=== PATIENT | male | born 1945 | race Caucasian/White ===

== ENCOUNTER 2019-05-28 08:58 | Outpatient (RCR) | payer MEDICARE, SELFPAY ==
[2019-04-12 09:22] LABS: Prothrombin Time 21.1 Seconds (9.64-11.0)
[2019-05-03 10:07] LABS: INR 3.6; Prothrombin Time 38.1 Seconds (9.64-11.0)
[2019-05-07 10:06] LABS: INR 2.6; Prothrombin Time 27.6 Seconds (9.64-11.0)
[2019-05-14 10:02] LABS: INR 2.5; Prothrombin Time 26.1 Seconds (9.64-11.0)
[2019-05-28 09:29] LABS: INR 2.3
== END 2019-07-11 23:59 | disposition home or self-care (01) ==
LOC: CHSLAB 08:58
PROVIDERS: PCP Internal Medicine; Visit Provider Specialist
DX: I48.91 Unspecified atrial fibrillation (principal); Z79.83 Long term (current) use of bisphosphonates
CPT/HCPCS: 36415; 85610

== ENCOUNTER 2019-06-22 09:04 | Outpatient (CLI) | payer MEDICARE, SELFPAY ==
[2019-06-22 09:17] LABS: Hematocrit 35.7 % (37.0-46.0); Hemoglobin 12.1 g/dL (12.4-15.3); Mean Corpuscular HGB Conc 33.9 g/dL (32.0-36.0); Mean Corpuscular Hemoglobin 31.8 pg (27.0-31.0); Mean Corpuscular Volume 93.9 fL (78.0-102.0); Mean Platelet Volume 10.1 fl (8.7-11.0); Platelet Count Result 223 K/mm3 (150-420); Red Cell Distribution Width 13.4 % (11.6-14.4); White Blood Count 5.5 K/mm3 (4.8-10.8)
[2019-06-22] MEDS: CYANOCOBALAMIN INJ 1,000 MCG/ML VIAL 1000 MCG IM (09:23)
[2019-06-22 09:28] LABS: INR 2.1
[2019-06-22 09:50] LABS: BNP 437 pg/mL (0-100)
[2019-06-22 10:08] LABS: Alanine Aminotransferase 24 U/L (16-63); Albumin Level 3.9 g/dL (3.4-5.0); Alkaline Phosphatase 75 U/L (46-116); Anion Gap 13.2 mmol/L (7-16); Aspartate Amino Transferase 25 U/L (15-37); Bilirubin,Total 0.5 mg/dL (0.00-1.00); Blood Urea Nitrogen 25 mg/dL (7-18); Calcium 9.4 mg/dL (8.5-10.1); Carbon Dioxide 27 mmol/L (21-32); Chloride 102 mmol/L (98-108); Cholesterol 154 mg/dL (0-200); Estimated Glomerular Filt Rate > 60; Glucose 102 mg/dL (70-99); HDL Direct 75 mg/dL (40-60); LDL Cholesterol Calculated 70 mg/dL (<130); Osmolality Calculated 288 mOsm/kg (285-295); Potassium 5.2 mmol/L (3.5-5.1); Sodium 137 mmol/L (136-145); Total Protein 7.8 g/dL (6.4-8.2); Triglycerides 45 mg/dL (0-150); Uric Acid 6.4 mg/dL (3.5-7.2)
[2019-06-22 10:37] LABS: Band Neutrophils Percent 0 % (0-6); Basophils Absolute Manual 0.05 K/mm3 (0-0.1); Basophils Percent Manual 1 % (0-1); Eosinophils Absolute Manual 0.49 K/mm3 (0.02-0.5); Eosinophils Percent Manual 9 % (1-6); Lymphocytes Absolute Manual 1.65 K/mm3 (1.1-4.5); Lymphocytes Percent Manual 30 % (18-44); Monocytes Absolute Manual 0.66 K/mm3 (0.1-0.90); Monocytes Percent Manual 12 % (3-9); Neutrophils Absolute Manual 2.64 K/mm3 (1.3-6.7); Neutrophils Percent Manual 48 % (46-73); Platelet Estimate Adequate (Adequate); Total Cells Counted 100
== END 2019-06-22 09:05 | disposition home or self-care (01) ==
PROVIDERS: PCP Specialist; Visit Provider Internal Medicine
DX: I48.91 Unspecified atrial fibrillation (principal); E53.8 Deficiency of other specified B group vitamins; I50.9 Heart failure, unspecified; I11.0 Hypertensive heart disease with heart failure; Z79.01 Long term (current) use of anticoagulants; E78.5 Hyperlipidemia, unspecified; M10.9 Gout, unspecified
CPT/HCPCS: 36415; 80053; 80061; 83880; 84550; 85025; 85610; 96372; J3420

== ENCOUNTER 2019-07-20 09:43 | Outpatient (CLI) | payer MEDICARE, SELFPAY ==
[2019-07-20 10:13] LABS: INR 2.4; Prothrombin Time 24.5 Seconds (9.64-11.0)
[2019-07-20] MEDS: CYANOCOBALAMIN INJ 1,000 MCG/ML VIAL 1000 MCG IM (10:16)
--- NOTE | 2019-07-20 10:18 | PC.NURSE ---
PATIENT HERE FOR MONTHLY B12 INJECTION. B12 INJECTION ADMINISTERED. TOLERATED WELL. NO CONCERNS. SAFE EXIT OF HOSPITAL.
== END 2019-07-20 09:44 | disposition home or self-care (01) ==
PROVIDERS: PCP Internal Medicine; Visit Provider Specialist
DX: E53.8 Deficiency of other specified B group vitamins (principal); I48.0 Paroxysmal atrial fibrillation
CPT/HCPCS: 36415; 85610; 96372; J3420

== ENCOUNTER 2019-08-21 09:42 | Outpatient (CLI) | payer MEDICARE, SELFPAY ==
[2019-08-21 10:06] LABS: INR 1.9
[2019-08-21] MEDS: CYANOCOBALAMIN INJ 1,000 MCG/ML VIAL 1000 MCG IM (10:41)
== END 2019-08-21 09:43 | disposition home or self-care (01) ==
LOC: CHSTREATRM 09:44
PROVIDERS: PCP Internal Medicine; Visit Provider Specialist
DX: I48.0 Paroxysmal atrial fibrillation (principal); E53.8 Deficiency of other specified B group vitamins
CPT/HCPCS: 36415; 85610; 96372; J3420

== ENCOUNTER 2019-09-28 10:32 | Outpatient (CLI) | payer MEDICARE, SELFPAY ==
[2019-09-28] MEDS: CYANOCOBALAMIN INJ 1,000 MCG/ML VIAL 1000 MCG IM (10:51)
[2019-09-28 10:53] LABS: INR 2.3; Prothrombin Time 22.8 Seconds (9.64-11.0)
--- NOTE | 2019-09-28 10:59 | PC.NURSE ---
PT EXITED THE HOSPITAL PER WC WITH VOLUNTEER.
== END 2019-09-28 10:33 | disposition home or self-care (01) ==
PROVIDERS: PCP Internal Medicine; Visit Provider Specialist
DX: I48.0 Paroxysmal atrial fibrillation (principal); E53.8 Deficiency of other specified B group vitamins
CPT/HCPCS: 36415; 85610; 96372; J3420

== ENCOUNTER 2019-10-26 09:16 | Outpatient (CLI) | payer MEDICARE, SELFPAY ==
[2019-10-26] MEDS: CYANOCOBALAMIN INJ 1,000 MCG/ML VIAL 1000 MCG IM (09:32)
[2019-10-26 09:39] LABS: INR 2.1; Prothrombin Time 20.7 Seconds (9.64-11.0)
== END 2019-10-26 09:17 | disposition home or self-care (01) ==
PROVIDERS: PCP Internal Medicine; Visit Provider Specialist
DX: E53.8 Deficiency of other specified B group vitamins (principal); I48.0 Paroxysmal atrial fibrillation
CPT/HCPCS: 36415; 85610; 96372; J3420

== ENCOUNTER 2019-11-26 09:06 | Outpatient (CLI) | payer MEDICARE, SELFPAY ==
[2019-11-26] MEDS: CYANOCOBALAMIN INJ 1,000 MCG/ML VIAL 1000 MCG IM (09:25)
[2019-11-26 09:41] LABS: INR 2.5; Prothrombin Time 25.2 Seconds (9.64-11.0)
== END 2019-11-26 09:07 | disposition home or self-care (01) ==
PROVIDERS: PCP Internal Medicine; Visit Provider Specialist
DX: E53.8 Deficiency of other specified B group vitamins (principal); I48.0 Paroxysmal atrial fibrillation
CPT/HCPCS: 36415; 85610; 96372; J3420

== ENCOUNTER 2019-12-31 09:32 | Outpatient (CLI) | payer MEDICARE, SELFPAY ==
[2019-12-31] MEDS: CYANOCOBALAMIN INJ 1,000 MCG/ML VIAL 1000 MCG IM (09:53)
[2019-12-31 09:56] LABS: INR 1.8; Prothrombin Time 18.3 Seconds (9.64-11.0)
== END 2019-12-31 09:33 | disposition home or self-care (01) ==
LOC: CHSTREATRM 09:35
PROVIDERS: PCP Internal Medicine; Visit Provider Specialist
DX: E53.8 Deficiency of other specified B group vitamins (principal); I48.0 Paroxysmal atrial fibrillation
CPT/HCPCS: 36415; 85610; 96372; J3420

== ENCOUNTER 2020-01-22 10:14 | Outpatient (CLI) | payer MEDICARE, SELFPAY ==
[2020-01-22 10:33] LABS: Basophils Absolute Auto 0.05 K/mm3 (0.00-0.10); Basophils Percent Auto 0.6 % (0.0-1.0); Eosinophils Percent Auto 9.7 % (1.0-6.0); Hematocrit 35.5 % (37.0-46.0); Hemoglobin 11.7 g/dL (12.4-15.3); Immature Granulocyte Absolute 0.04 K/mm3 (0.00-0.00); Immature Granulocyte Percent A 0.5 % (0.0-0.0); Lymphocytes Absolute Auto 1.19 K/mm3 (1.10-4.50); Lymphocytes Percent Auto 14.5 % (18.0-42.0); Mean Corpuscular Hemoglobin 31.7 pg (27.0-31.0); Mean Corpuscular Volume 96.2 fL (78.0-102.0); Monocytes Absolute Auto 0.81 K/mm3 (0.10-0.90); Monocytes Percent Auto 9.9 % (2.0-11.0); Neutrophils Absolute Auto 5.3 K/mm3 (1.7-7.2); Neutrophils Percent Auto 64.8 % (50.0-70.0); Platelet Count Result 233 K/mm3 (150-420); Red Blood Count 3.69 M/mm3 (4.70-6.10); Red Cell Distribution Width 13.2 % (11.6-14.4); White Blood Count 8.2 K/mm3 (4.8-10.8)
[2020-01-22 10:36] LABS: Add Urine Microscopic? NO; Appearance Urine Clear (Clear); Bilirubin Urine Negative (Negative); Blood Urine Negative (Negative); Color Urine Yellow (Yellow); Glucose Urine UA Negative (Negative); Ketones Urine Negative (Negative); Leukocyte Esterase Ur Negative (Negative); Nitrate Urine Negative (Negative); Protein Urine Negative (Negative); Urobilinogen Urine 0.2 mg/dL (0.2-1.0); pH Urine 6.5 (5.0-8.0)
[2020-01-22 10:46] LABS: Hemoglobin A1C 4.9 % (<5.7)
[2020-01-22 11:22] LABS: Alanine Aminotransferase 30 U/L (16-63); Albumin Level 3.8 g/dL (3.4-5.0); Alkaline Phosphatase 90 U/L (46-116); Anion Gap 7 mmol/L (8-16); Aspartate Amino Transferase 23 U/L (15-37); Bilirubin,Total 0.4 mg/dL (0.00-1.00); Blood Urea Nitrogen 23 mg/dL (7-18); Calcium 9.4 mg/dL (8.5-10.1); Carbon Dioxide 28 mmol/L (21-32); Chloride 99 mmol/L (98-108); Cholesterol 154 mg/dL (0-200); Estimated Glomerular Filt Rate > 60; Glucose 105 mg/dL (70-99); HDL Direct 75 mg/dL (40-60); LDL Cholesterol Calculated 62 mg/dL (<130); Osmolality Calculated 281 mOsm/kg (285-295); Potassium 4.7 mmol/L (3.5-5.1); Prostate Specific Antigen 0.8 ng/mL (< OR = 4.0); Sodium 134 mmol/L (136-145); Total Protein 7.3 g/dL (6.4-8.2); Triglycerides 87 mg/dL (0-150)
== END 2020-01-22 10:15 | disposition home or self-care (01) ==
LOC: CHSLAB 10:17
PROVIDERS: PCP Internal Medicine; Visit Provider Internal Medicine
DX: I50.9 Heart failure, unspecified (principal); E11.9 Type 2 diabetes mellitus without complications; R10.9 Unspecified abdominal pain; Z12.5 Encounter for screening for malignant neoplasm of prostate; Z00.00 Encounter for general adult medical examination without abnormal findings
CPT/HCPCS: 36415; 80053; 80061; 81003; 83036; 84153; 85025; G0103

== ENCOUNTER 2020-01-23 08:07 | Outpatient (CLI) | payer MEDICARE, SELFPAY ==
--- NOTE | ~2020-01-23 | US_ITS ---
EXAMINATION: US right upper quadrant EXAM DATE: 01/23/2020 09:12 INDICATION: Abdominal pain. TECHNIQUE: Multiple grayscale and Doppler images of the abdomen right upper quadrant were obtained (rodolfo y a technologist who performed the scan) and subsequently reviewed. There is no prior study for joseline fernández. FINDINGS: Exam limited from patient's body habitus. The pancreatic head and body are unremarkable in appearance. The pancreatic tail is not visualized. Poor acoustic window for evaluating liver but no gross abnormality. There is no evidence of intrah epatic biliary duct dilation. Portal venous flow was seen in the hepatopedal, normal direction and h as normal Doppler waveform. No right-sided hydronephrosis. Common bile duct measures 6 mm, which is normal. There is cholelithiasis. Gallbladder wall was measur ed at 4 mm which is considered mildly thickened, which is nonspecific given absence of sonographic Mu rphy's sign. IMPRESSION: Cholelithiasis. Mild nonspecific gallbladder wall thickening. No pericholecystic fluid, b iliary dilation or sonographic Trivedi's sign demonstrated. Reviewed, dictated and finalized at location B. IMPRESSION: Cholelithiasis. Mild nonspecific gallbladder wall thickening. No pe richolecystic fluid, biliary dilation or sonographic Trivedi's sign demonstrated .
--- NOTE | ~2020-01-23 | US_ITS ---
EXAMINATION: US aorta EXAM DATE: 01/23/2020 09:12 INDICATION: Abdominal pain. Hypertension. Myocardial infarction, high cholesterol. TECHNIQUE: Multiple grayscale and Doppler images of the aorta were obtained (by a technologist who pe rformed the scan) and subsequently reviewed. There is no prior study for comparison. FINDINGS: Mild aortic atherosclerosis without aneurysm or evidence of dissection flap. Aorta measurements by te chnologist are of the lumen, not including the wall, but are within normal size limits. IMPRESSION: 1. Mild aortic atherosclerosis. Reviewed, dictated and finalized at location B.
== END 2020-01-23 08:08 | disposition home or self-care (01) ==
LOC: CHSIMG 08:09
PROVIDERS: PCP Internal Medicine; Visit Provider Internal Medicine
DX: R10.9 Unspecified abdominal pain (principal); I50.9 Heart failure, unspecified; E11.9 Type 2 diabetes mellitus without complications
CPT/HCPCS: 76705; 76775

== ENCOUNTER 2020-01-28 09:29 | Outpatient (CLI) | payer MEDICARE, SELFPAY ==
[2020-01-28 09:54] LABS: INR 2.1; Prothrombin Time 21.5 Seconds (9.64-11.0)
[2020-01-28] MEDS: CYANOCOBALAMIN INJ 1,000 MCG/ML VIAL 1000 MCG IM (09:58)
== END 2020-01-28 09:30 | disposition home or self-care (01) ==
PROVIDERS: PCP Internal Medicine; Visit Provider Specialist
DX: E53.8 Deficiency of other specified B group vitamins (principal); I48.0 Paroxysmal atrial fibrillation
CPT/HCPCS: 36415; 85610; 96372; J3420

== ENCOUNTER 2020-02-25 09:30 | Outpatient (CLI) | payer MEDICARE, SELFPAY ==
[2020-02-25] MEDS: CYANOCOBALAMIN INJ 1,000 MCG/ML VIAL 1000 MCG IM (09:44)
[2020-02-25 10:00] LABS: INR 2.9; Prothrombin Time 28.8 Seconds (9.64-11.0)
== END 2020-02-25 09:31 | disposition home or self-care (01) ==
LOC: CHSTREATRM 09:32
PROVIDERS: PCP Internal Medicine; Visit Provider Specialist
DX: E53.8 Deficiency of other specified B group vitamins (principal); I48.0 Paroxysmal atrial fibrillation
CPT/HCPCS: 36415; 85610; 96372; J3420

== ENCOUNTER 2020-03-24 10:15 | Outpatient (CLI) | payer MEDICARE, SELFPAY ==
[2020-03-24 10:43] LABS: INR 3.2; Prothrombin Time 31.7 Seconds (9.64-11.0)
[2020-03-24] MEDS: CYANOCOBALAMIN INJ 1,000 MCG/ML VIAL 1000 MCG IM (10:47)
== END 2020-03-24 10:16 | disposition home or self-care (01) ==
PROVIDERS: PCP Internal Medicine; Visit Provider Specialist
DX: E53.8 Deficiency of other specified B group vitamins (principal); I48.0 Paroxysmal atrial fibrillation
CPT/HCPCS: 36415; 85610; 96372; J3420

== ENCOUNTER 2020-04-22 10:18 | Outpatient (CLI) | payer MEDICARE, SELFPAY ==
[2020-04-22] MEDS: CYANOCOBALAMIN INJ 1,000 MCG/ML VIAL 1000 MCG IM (10:41)
== END 2020-04-22 10:19 | disposition home or self-care (01) ==
LOC: CHSTREATRM 10:19
PROVIDERS: PCP Internal Medicine; Visit Provider Internal Medicine
DX: E53.8 Deficiency of other specified B group vitamins (principal)
CPT/HCPCS: 96372; J3420

== ENCOUNTER 2020-05-27 09:51 | Outpatient (CLI) | payer MEDICARE, SELFPAY ==
[2020-05-27] MEDS: CYANOCOBALAMIN INJ 1,000 MCG/ML VIAL 1000 MCG IM (10:09)
== END 2020-05-27 09:52 | disposition home or self-care (01) ==
LOC: CHSTREATRM 09:54
PROVIDERS: PCP Internal Medicine; Visit Provider Internal Medicine
DX: E53.8 Deficiency of other specified B group vitamins (principal)
CPT/HCPCS: 96372; J3420

== ENCOUNTER 2020-06-09 09:56 | Outpatient (RCR) | payer MEDICARE, SELFPAY ==
[2020-03-31 08:39] LABS: INR 2.7; Prothrombin Time 28.4 Seconds (9.50-12.10)
[2020-04-14 10:38] LABS: INR 2.6; Prothrombin Time 27.4 Seconds (9.50-12.10)
[2020-05-12 11:50] LABS: INR 1.9; Prothrombin Time 20.4 Seconds (9.50-12.10)
[2020-06-09 10:24] LABS: INR 2.3; Prothrombin Time 23.3 Seconds (9.50-12.10)
== END 2020-06-29 23:59 | disposition home or self-care (01) ==
LOC: CHSLAB 09:56
PROVIDERS: PCP Internal Medicine; Visit Provider Specialist
DX: I48.0 Paroxysmal atrial fibrillation (principal); Z79.01 Long term (current) use of anticoagulants
CPT/HCPCS: 36415; 85610

== ENCOUNTER 2020-06-24 09:50 | Outpatient (CLI) | payer MEDICARE, SELFPAY ==
[2020-06-24] MEDS: CYANOCOBALAMIN INJ 1,000 MCG/ML VIAL 1000 MCG IM (10:05)
== END 2020-06-24 09:51 | disposition home or self-care (01) ==
LOC: CHSTREATRM 09:52
PROVIDERS: PCP Internal Medicine; Visit Provider Internal Medicine
DX: E53.8 Deficiency of other specified B group vitamins (principal)
CPT/HCPCS: 96372; J3420

== ENCOUNTER 2020-07-07 09:25 | Outpatient (RCR) | payer MEDICARE, SELFPAY ==
[2020-07-07 09:53] LABS: INR 1.8; Prothrombin Time 18.8 Seconds (9.50-12.10)
== END 2020-10-05 23:59 | disposition home or self-care (01) ==
LOC: CHSLAB 09:25
PROVIDERS: PCP Internal Medicine; Visit Provider Specialist
DX: Z79.01 Long term (current) use of anticoagulants (principal)
CPT/HCPCS: 36415; 85610

== ENCOUNTER 2020-07-24 09:38 | Outpatient (CLI) | payer MEDICARE, SELFPAY ==
--- NOTE | 2020-07-24 09:45 | PC.NURSE ---
here for OP IM, vitamin B12 given IM, tolerated well, discharge to home ambulatory
[2020-07-24] MEDS: CYANOCOBALAMIN INJ 1,000 MCG/ML VIAL 1000 MCG IM (10:08)
[2020-07-24 10:53] LABS: INR 2.4; Prothrombin Time 24.8 Seconds (9.50-12.10)
== END 2020-07-24 09:39 | disposition home or self-care (01) ==
LOC: CHSTREATRM 09:40
PROVIDERS: PCP Internal Medicine; Visit Provider Specialist
DX: E53.8 Deficiency of other specified B group vitamins (principal); Z79.01 Long term (current) use of anticoagulants
CPT/HCPCS: 36415; 85610; 96372; J3420

== ENCOUNTER 2020-08-26 09:22 | Outpatient (CLI) | payer MEDICARE, SELFPAY ==
[2020-08-26] MEDS: CYANOCOBALAMIN INJ 1,000 MCG/ML VIAL 1000 MCG IM (09:45)
[2020-08-26 09:49] VITALS: BP 128/77; PULSE 72; RESP 14; TEMP 36.7; O2SAT 97
[2020-08-26 09:52] LABS: INR 2.4; Prothrombin Time 24.5 Seconds (9.50-12.10)
== END 2020-08-26 09:23 | disposition home or self-care (01) ==
LOC: CHSLAB 09:25
PROVIDERS: PCP Internal Medicine; Visit Provider Specialist
DX: E53.8 Deficiency of other specified B group vitamins (principal); Z79.01 Long term (current) use of anticoagulants
CPT/HCPCS: 36415; 85610; 96372; J3420

== ENCOUNTER 2020-09-01 11:48 | Outpatient (CLI) | payer MEDICARE, SELFPAY ==
[2020-09-01 12:13] LABS: Basophils Absolute Auto 0.03 K/mm3 (0.00-0.10); Basophils Percent Auto 0.5 % (0.0-1.0); Eosinophils Absolute Auto 0.38 K/mm3 (0.02-0.50); Eosinophils Percent Auto 6.7 % (1.0-6.0); Hematocrit 32.4 % (37.0-46.0); Hemoglobin 11.2 g/dL (12.4-15.3); Immature Granulocyte Absolute 0.02 K/mm3 (0.00-0.00); Immature Granulocyte Percent A 0.4 % (0.0-0.0); Lymphocytes Absolute Auto 0.84 K/mm3 (1.10-4.50); Lymphocytes Percent Auto 14.8 % (18.0-42.0); Mean Corpuscular HGB Conc 34.6 g/dL (32.0-36.0); Mean Corpuscular Hemoglobin 32.5 pg (27.0-31.0); Mean Corpuscular Volume 93.9 fL (78.0-102.0); Mean Platelet Volume 9.8 fl (8.7-11.0); Monocytes Percent Auto 12.4 % (2.0-11.0); Neutrophils Absolute Auto 3.7 K/mm3 (1.7-7.2); Neutrophils Percent Auto 65.2 % (50.0-70.0); Platelet Count Result 213 K/mm3 (150-420); Red Blood Count 3.45 M/mm3 (4.70-6.10); Red Cell Distribution Width 13.1 % (11.6-14.4); White Blood Count 5.7 K/mm3 (4.8-10.8)
[2020-09-01 12:24] LABS: Hemoglobin A1C 5.1 % (<5.7)
[2020-09-01 13:40] LABS: Alanine Aminotransferase 24 U/L (16-63); Albumin Level 3.6 g/dL (3.4-5.0); Alkaline Phosphatase 76 U/L (46-116); Anion Gap 6 mmol/L (8-16); Aspartate Amino Transferase 21 U/L (15-37); Bilirubin,Total 0.6 mg/dL (0.00-1.00); Blood Urea Nitrogen 24 mg/dL (7-18); Carbon Dioxide 27 mmol/L (21-32); Chloride 91 mmol/L (98-108); Estimated Glomerular Filt Rate > 60; Glucose 86 mg/dL (70-99); Magnesium 1.7 mg/dL (1.8-2.4); NT Pro B Type Natriuretic Pept 2018 pg/mL (0-125); Osmolality Calculated 261 mOsm/kg (285-295); Potassium 5.2 mmol/L (3.5-5.1); Sodium 124 mmol/L (136-145); Uric Acid 5.6 mg/dL (3.5-7.2)
== END 2020-09-01 11:49 | disposition home or self-care (01) ==
LOC: CHSLAB 11:50
PROVIDERS: PCP Internal Medicine; Visit Provider Internal Medicine
DX: R06.00 Dyspnea, unspecified (principal); I50.9 Heart failure, unspecified; E11.9 Type 2 diabetes mellitus without complications; M10.9 Gout, unspecified
CPT/HCPCS: 36415; 80053; 83036; 83735; 83880; 84550; 85025

== ENCOUNTER 2020-09-11 12:36 | Outpatient (CLI) | payer MEDICARE, SELFPAY ==
[2020-09-11 13:29] LABS: Anion Gap 7 mmol/L (8-16); Blood Urea Nitrogen 19 mg/dL (7-18); Calcium 9.5 mg/dL (8.5-10.1); Carbon Dioxide 29 mmol/L (21-32); Chloride 91 mmol/L (98-108); Estimated Glomerular Filt Rate > 60; Glucose 91 mg/dL (70-99); Osmolality Calculated 266 mOsm/kg (285-295); Potassium 4.1 mmol/L (3.5-5.1); Sodium 127 mmol/L (136-145)
== END 2020-09-11 12:37 | disposition home or self-care (01) ==
LOC: CHSIMG 12:38
PROVIDERS: PCP Internal Medicine; Visit Provider Specialist
DX: I25.10 Atherosclerotic heart disease of native coronary artery without angina pectoris (principal); I50.9 Heart failure, unspecified; I10 Essential (primary) hypertension; R06.00 Dyspnea, unspecified
CPT/HCPCS: 36415; 80048; C8929

== ENCOUNTER 2020-09-25 09:50 | Outpatient (CLI) | payer MEDICARE, SELFPAY ==
[2020-09-25] MEDS: CYANOCOBALAMIN INJ 1,000 MCG/ML VIAL 1000 MCG IM (10:14)
[2020-09-25 10:26] LABS: INR 2.3; Prothrombin Time 23.6 Seconds (9.50-12.10)
== END 2020-09-25 09:51 | disposition home or self-care (01) ==
LOC: CHSLAB 09:52
PROVIDERS: PCP Internal Medicine; Visit Provider Specialist
DX: E53.8 Deficiency of other specified B group vitamins (principal); Z79.01 Long term (current) use of anticoagulants
CPT/HCPCS: 36415; 85610; 96372; J3420

== ENCOUNTER 2020-10-08 09:11 | Outpatient (RCR) | payer MEDICARE, SELFPAY ==
[2020-10-08 09:43] LABS: INR 2.8; Prothrombin Time 28.8 Seconds (9.50-12.10)
== END 2021-01-06 23:59 | disposition home or self-care (01) ==
LOC: CHSLAB 09:11
PROVIDERS: PCP Internal Medicine; Visit Provider Specialist
DX: Z79.01 Long term (current) use of anticoagulants (principal)
CPT/HCPCS: 36415; 85610

== ENCOUNTER 2020-10-29 11:02 | Outpatient (CLI) | payer MEDICARE, SELFPAY ==
[2020-10-29] MEDS: CYANOCOBALAMIN INJ 1,000 MCG/ML VIAL 1000 MCG IM (11:25)
[2020-10-29 11:26] LABS: INR 2.8; Prothrombin Time 28.4 Seconds (9.50-12.10)
[2020-10-29 11:28] VITALS: BP 121/70; PULSE 64; RESP 12; TEMP 36.6; O2SAT 97; BMI 28.8
== END 2020-10-29 11:03 | disposition home or self-care (01) ==
LOC: CHSTREATRM 11:05
PROVIDERS: PCP Internal Medicine; Visit Provider Specialist
DX: E53.8 Deficiency of other specified B group vitamins (principal); Z79.01 Long term (current) use of anticoagulants
CPT/HCPCS: 36415; 85610; 96372

== ENCOUNTER 2020-11-17 10:54 | Outpatient (CLI) | payer MEDICARE, SELFPAY ==
--- NOTE | 2020-11-17 11:10 | ECG_ITS ---
Measurements Intervals [place] Rate: 83 P: 91 DE: 137 QRS: 145 QRSD: 154 T: -27 QT: 445 QTc: 524 Interpretive Statements ELECTRONIC VENTRICULAR PACEMAKER NO FURTHER INTERPRETATION IS POSSIBLE ATYPICAL ECG Electronically Signed On 11-17-2020 11:46:07 CDT by Kahlil Farfan D.O.
== END 2020-11-17 10:55 | disposition home or self-care (01) ==
PROVIDERS: PCP Internal Medicine; Visit Provider Specialist
DX: I48.0 Paroxysmal atrial fibrillation (principal); I10 Essential (primary) hypertension; I50.22 Chronic systolic (congestive) heart failure
CPT/HCPCS: 93005

== ENCOUNTER 2020-12-02 10:07 | Outpatient (CLI) | payer MEDICARE, SELFPAY ==
[2020-12-02 10:34] LABS: INR 2.5; Prothrombin Time 25.6 Seconds (9.50-12.10)
[2020-12-02] MEDS: CYANOCOBALAMIN INJ 1,000 MCG/ML VIAL 1000 MCG IM (11:14)
--- NOTE | 2020-12-02 11:16 | PC.NURSE ---
Patient here for monthly B12 injection. No concerns voiced. Safe exit of hospital. Will return
== END 2020-12-02 10:08 | disposition home or self-care (01) ==
LOC: CHSTREATRM 10:11
PROVIDERS: PCP Internal Medicine; Visit Provider Specialist
DX: E53.8 Deficiency of other specified B group vitamins (principal); Z79.01 Long term (current) use of anticoagulants
CPT/HCPCS: 36415; 85610; 96372; J3420

== ENCOUNTER 2021-01-06 09:46 | Outpatient (CLI) | payer MEDICARE, SELFPAY ==
[2021-01-06] MEDS: CYANOCOBALAMIN INJ 1,000 MCG/ML VIAL 1000 MCG IM (10:05)
[2021-01-06 10:41] LABS: INR 2.9; Prothrombin Time 29.1 Seconds (9.50-12.10)
== END 2021-01-06 09:47 | disposition home or self-care (01) ==
LOC: CHSTREATRM 09:50
PROVIDERS: PCP Internal Medicine; Visit Provider Specialist
DX: E53.8 Deficiency of other specified B group vitamins (principal); Z79.01 Long term (current) use of anticoagulants
CPT/HCPCS: 36415; 85610; 96372

== ENCOUNTER 2021-02-10 09:20 | Outpatient (CLI) | payer MEDICARE, SELFPAY ==
[2021-02-10] MEDS: CYANOCOBALAMIN INJ 1,000 MCG/ML VIAL 1000 MCG IM (09:36)
--- NOTE | 2021-02-10 09:42 | PC.NURSE ---
Patient here for monthly B12 injection. No concerns voiced. B12 injection administered see JUN. Tolerated well. Safe exit of hospital. Will return Mar 17, 2021 at 1000 next month.
[2021-02-10 09:56] LABS: INR 2.2; Prothrombin Time 22.5 Seconds (9.50-12.10)
== END 2021-02-10 09:21 | disposition home or self-care (01) ==
PROVIDERS: PCP Internal Medicine; Visit Provider Internal Medicine
DX: Z79.01 Long term (current) use of anticoagulants (principal); E53.8 Deficiency of other specified B group vitamins
CPT/HCPCS: 36415; 85610; 96372; J3420

== ENCOUNTER 2021-03-17 09:29 | Outpatient (CLI) | payer MEDICARE, SELFPAY ==
[2021-03-17] MEDS: CYANOCOBALAMIN INJ 1,000 MCG/ML VIAL 1000 MCG IM (09:51)
[2021-03-17 09:55] LABS: INR 3.9; Prothrombin Time 39.1 Seconds (9.50-12.10)
--- NOTE | 2021-03-17 09:56 | PC.NURSE ---
Patient here for monthly B12 injection. No concerns voiced. B12 injection administered. SEE MAR. Tolerated well. Safe exit of hospital. Will return 2020 Tue at 1000.
== END 2021-03-17 09:30 | disposition home or self-care (01) ==
LOC: CHSTREATRM 09:33
PROVIDERS: PCP Internal Medicine; Visit Provider Specialist
DX: D53.8 Other specified nutritional anemias (principal); Z79.01 Long term (current) use of anticoagulants
CPT/HCPCS: 36415; 85610; 96372; J3420

== ENCOUNTER 2021-04-07 10:37 | Outpatient (RCR) | payer MEDICARE, SELFPAY ==
[2021-01-20 10:07] LABS: INR 2.5; Prothrombin Time 25.7 Seconds (9.50-12.10)
[2021-03-24 11:05] LABS: INR 2.7; Prothrombin Time 27.6 Seconds (9.50-12.10)
[2021-03-30 11:47] LABS: INR 3.9; Prothrombin Time 38.7 Seconds (9.50-12.10)
[2021-04-07 10:56] LABS: INR 3.3; Prothrombin Time 33.5 Seconds (9.50-12.10)
== END 2021-04-20 23:59 | disposition home or self-care (01) ==
LOC: CHSLAB 10:37
PROVIDERS: PCP Internal Medicine; Visit Provider Specialist
DX: Z79.01 Long term (current) use of anticoagulants (principal)
CPT/HCPCS: 36415; 85610

== ENCOUNTER 2021-04-30 11:37 | Outpatient (CLI) | payer MEDICARE, SELFPAY ==
[2021-04-30] MEDS: CYANOCOBALAMIN INJ 1,000 MCG/ML VIAL 1000 MCG IM (11:55)
--- NOTE | 2021-04-30 11:57 | PC.NURSE ---
Patient here for his monthly B12 injection. No concerns voiced. B12 injection administered. SEE MAR. Tolerated well. Will return Jun 01, 2020 for next one. Safe exit of hospital.
[2021-04-30 12:08] LABS: INR 3.9; Prothrombin Time 38.8 Seconds (9.50-12.10)
== END 2021-04-30 11:38 | disposition home or self-care (01) ==
LOC: CHSTREATRM 11:39
PROVIDERS: PCP Internal Medicine; Visit Provider Specialist
DX: E53.8 Deficiency of other specified B group vitamins (principal); Z79.01 Long term (current) use of anticoagulants
CPT/HCPCS: 36415; 85610; 96372; J3420

== ENCOUNTER 2021-05-03 10:55 | Inpatient (IN) | payer MEDICARE, SELFPAY ==
[2021-05-03] VITALS (10 sets, daily range): BP systolic 114–157; BP diastolic 58–85; PULSE 57–126; RESP 18–40; TEMP 35.9–36.7; O2SAT 94–96; BMI 34.5
--- NOTE | ~2021-05-03 | XR_ITS ---
EXAMINATION: XR chest 2V EXAM DATE: 05/03/2021 13:11 INDICATION: Cough, wheezing, dyspnea. TECHNIQUE: Portable AP frontal chest x-ray was obtained. Comparison is made to prior examination from 2018. FINDINGS: Small to moderate left pleural effusion, similar appearance on prior study. Sternotomy wire s. Pacemaker/AICD device. Small right pleural effusion. The cardiac silhouette is enlarged. There is pulmonary vascular congestion. There is indistinct reticulation with a bibasal predominance which may indicate pulmonary edema. Some left lower lobe atelectasis. Pneumonia not excludable. Mild to modera te scoliosis. IMPRESSION: 1. Congestive changes, pulmonary edema. Pneumonia not excludable. 2. Small to moderate left, small right pleural effusions. Reviewed, dictated and finalized at location A. IDE PLANT ENGINEER
--- NOTE | 2021-05-03 11:10 | ED.URI ---
HPI - URI/Sore Throat General Source: patient and RN notes reviewed Mode of arrival: ambulatory Limitations: no limitations History of Present Illness HPI Narrative: Patient complains of cough and shortness of breath. Feels like there is some chest congestion but not able to cough anything up. Denied any fever chills. Getting worse has not tried anything to make it better. MD elicited complaint: cough Pertinent past history: pneumonia Onset (ago): day(s) (3) Consistency: intermittent and progressively worsening Severity: moderate Description of mucous: purulent Able to tolerate fluids by mouth: Yes Exacerbating factors: exertion Relieving factors: nothing Associated symptoms: shortness of breath Treatments prior to arrival: none Related Data Home Medications Medication Instructions Recorded Confirmed allopurinol 100 mg PO BID 08/26/20 05/03/21 aspirin [Adult Aspirin EC Low 81 mg PO DAILY 08/26/20 05/03/21 Strength] dofetilide [Tikosyn] 500 mcg PO Q12H 08/26/20 05/03/21 ferrous fumarate 325 mg PO DAILY 08/26/20 05/03/21 furosemide 80 mg PO DAILY 08/26/20 05/03/21 gabapentin 800 mg PO BID 08/26/20 05/03/21 magnesium oxide [MagOx] 400 mg PO DAILY 08/26/20 05/03/21 pantoprazole 40 mg PO QAM 08/26/20 05/03/21 pravastatin 40 mg PO HS 08/26/20 05/03/21 sacubitril-valsartan [Entresto] 97 - 103 tablet PO BID 08/26/20 05/03/21 warfarin 3 mg PO DAILY 08/26/20 05/03/21 spironolactone 25 mg PO DAILY 05/03/21 05/03/21 Allergies Allergy/AdvReac Type Severity Reaction Status Date / Time No Known Allergies Allergy Verified 05/03/21 11:22 Review of Systems Constitutional: Constitutional: Denies chills and Denies fever(s) PMF Past Medical History Medical History (Updated 05/03/21 @ 14:13 by Dmitriy Diana MD) Atrial fibrillation Congestive heart failure Coronary artery disease GERD (gastroesophageal reflux disease) Gout Hyperlipidemia Surgical History Surgical History (Updated 05/03/21 @ 11:19 by Dmitriy Diana MD) H/O heart bypass surgery x4 Exam Const: General: no acute distress, alert and ill appearing acutely Nutritional Appearance: well nourished and obese centrally obese Orientation/consciousness: patient oriented x3 HENMT: Head: normal to inspection Ears: external ears normal Eyes: Conjunctivae: conjunctivae normal Pupils: Equal, round and reactive pupils present EOM: EOMs intact bilaterally Neck: Neck: normal visual inspection Resp: Effort & Inspection: tachypneic and uses accessory muscles Auscultation: rales diffuse and rhonchi throughout Cardio: Rate: regular rate Rhythm: regular rhythm GI: GI Palp: Yes Soft to palpation and No Tenderness to palpation present (GI) Auscultation: normal bowel sounds Back/Spine/Pelvis: Cervical Spine: cervical ROM normal Thoracic/Lumbar Spine: thoraco-lumbar ROM normal Skin: General skin exam: normal color Rashes: no rashes Neuro: General: patient oriented x3, moves all extremities, no meningeal signs, no focal motor deficits and CN's II-XI intact bilaterally Speech: normal speech Gait exam (Neuro): Normal gait present Extrem: General: normal to inspection and no pedal edema Psych: Appearance: grossly normal and well kempt Mental Status: mental status grossly normal Affect: normal affect Attitude: cooperative Thought content: Yes Normal thought content present Course Vital Signs Vital signs: Vital Signs Temperature 35.9 C L 05/03/21 11:08 Pulse Rate 70 05/03/21 11:08 Respiratory Rate 40 H 05/03/21 11:08 Blood Pressure 138/72 05/03/21 11:08 Pulse Oximetry 95 05/03/21 11:08 Temperature 36.0 C L 05/03/21 14:40 Pulse Rate 71 05/03/21 14:40 Respiratory Rate 18 05/03/21 14:40 Blood Pressure 114/58 L 05/03/21 14:40 Pulse Oximetry 95 05/03/21 14:40 MDM - URI/Sore Throat Differential Diagnosis Differential diagnosis: Likely bronchitis, influenza and other (pneumonia, CHF) Lab Data Attestation: I revi
[2021-05-03 11:40] LABS: Basophils Absolute Auto 0.04 K/mm3 (0.00-0.10); Basophils Percent Auto 0.6 % (0.0-1.0); Eosinophils Absolute Auto 0.15 K/mm3 (0.02-0.50); Eosinophils Percent Auto 2.1 % (1.0-6.0); Hematocrit 31.7 % (37.0-46.0); Immature Granulocyte Absolute 0.03 K/mm3 (0.00-0.00); Immature Granulocyte Percent A 0.4 % (0.0-0.0); Mean Corpuscular HGB Conc 31.5 g/dL (32.0-36.0); Mean Corpuscular Hemoglobin 31.7 pg (27.0-31.0); Mean Corpuscular Volume 100.6 fL (78.0-102.0); Mean Platelet Volume 11.7 fl (8.7-11.0); Monocytes Absolute Auto 0.98 K/mm3 (0.10-0.90); Monocytes Percent Auto 13.9 % (2.0-11.0); Neutrophils Absolute Auto 4.7 K/mm3 (1.7-7.2); Platelet Count Result 200 K/mm3 (150-420); Red Blood Count 3.15 M/mm3 (4.70-6.10); Red Cell Distribution Width 14.3 % (11.6-14.4); White Blood Count 7.1 K/mm3 (4.8-10.8)
[2021-05-03 11:56] LABS: Alanine Aminotransferase 24 U/L (16-63); Albumin Level 3.2 g/dL (3.4-5.0); Alkaline Phosphatase 107 U/L (46-116); Anion Gap 8 mmol/L (8-16); Aspartate Amino Transferase 19 U/L (15-37); Bilirubin,Total 0.9 mg/dL (0.00-1.00); Blood Urea Nitrogen 24 mg/dL (7-18); CRP 2.7 mg/dL (0.0-0.9); Calcium 9.9 mg/dL (8.5-10.1); Carbon Dioxide 29 mmol/L (21-32); Chloride 103 mmol/L (98-108); Estimated CRCL calculation 40 ml/min; Estimated Glomerular Filt Rate 44; Glucose 151 mg/dL (70-99); Magnesium 2.3 mg/dL (1.8-2.4); Osmolality Calculated 297 mOsm/kg (285-295); Potassium 3.6 mmol/L (3.5-5.1); Sodium 140 mmol/L (136-145); Total Protein 7.5 g/dL (6.4-8.2)
[2021-05-03 11:59] LABS: Lactic Acid Reflex 2.1 mmol/L (0.4-2.0)
[2021-05-03 12:17] LABS: Influenza A QL RT-PCR Negative (Negative); Influenza B QL RT-PCR Negative (Negative); SARS-CoV-2 RNA PCR Negative (Negative)
[2021-05-03 13:51] LABS: NT Pro B Type Natriuretic Pept 7187 pg/mL (0-125)
[2021-05-03 14:08] LABS: Reflex Lactic Acid Yes or No Add Lactic
--- NOTE | 2021-05-03 14:15 | PC.NURSE ---
12:41 heart rate on 05/03/2021 is not correct. Charted on wrong chart unable to edit.
--- NOTE | 2021-05-03 14:17 | PC.NURSE ---
Floor and registration notified of pt admission. Room 205
[2021-05-03 14:27] LABS: Lactic Acid 1.7 mmol/L (0.4-2.0)
[2021-05-03 14:31] LABS: INR 4.1; Prothrombin Time 41.3 Seconds (9.50-12.10)
--- NOTE | 2021-05-03 16:29 | ADMGEN ---
This patient, Onur Ramos, was admitted to 2nd Floor Room 205-2 for pneumonia. Patient/family oriented to hospital policies and general routines including ID bracelet, bed and alarms, visiting hours, pain management, procedures, bathroom and other care routines, personal items, smoking policy, room service/diet, and visiting hours. Information on how to activate the Rapid Response Team has been discussed. Patient/Family are encouraged to report perceived risks to care and to ask questions if they do not understand what they are told or what they should do.
[2021-05-03] MEDS: BENZONATATE 100 MG CAPSULE 200 MG PO (17:55)
[2021-05-03] MEDS: allopurinoL 100 MG TABLET PO (17:56)
[2021-05-03] MEDS: GABAPENTIN 400 MG CAPSULE 800 MG PO (17:58)
[2021-05-03] MEDS: IPRATROPIUM 0.5 MG/ALBUTEROL SULFATE 2.5 MG AMPUL.NEB 3 ML INHALATION (19:08)
[2021-05-03] MEDS: SACUBITRIL/VALSARTAN 49-51 MG TABLET 2 TABLET PO (22:19)
[2021-05-03] MEDS: guaiFENesin 12 HR 600 MG TABCR 1200 MG PO (22:19)
[2021-05-03] MEDS: PRAVASTATIN SODIUM 20 MG TABLET 40 MG PO (22:20)
[2021-05-04] VITALS (18 sets, daily range): BP systolic 109–131; BP diastolic 61–93; PULSE 78–106; RESP 14–22; TEMP 36.3–36.9; O2SAT 90–99
[2021-05-04] MEDS: IPRATROPIUM 0.5 MG/ALBUTEROL SULFATE 2.5 MG AMPUL.NEB 3 ML INHALATION ×5 (00:49→23:33)
[2021-05-04 05:50] LABS: Hematocrit 28.7 % (37.0-46.0); Hemoglobin 9.2 g/dL (12.4-15.3); Mean Corpuscular HGB Conc 32.1 g/dL (32.0-36.0); Mean Corpuscular Hemoglobin 32.1 pg (27.0-31.0); Mean Platelet Volume 11.9 fl (8.7-11.0); Platelet Count Result 175 K/mm3 (150-420); Red Blood Count 2.87 M/mm3 (4.70-6.10); Red Cell Distribution Width 14.3 % (11.6-14.4); White Blood Count 6.7 K/mm3 (4.8-10.8)
[2021-05-04 06:02] LABS: INR 3.5; Prothrombin Time 35.5 Seconds (9.50-12.10)
[2021-05-04 06:33] LABS: Alanine Aminotransferase 21 U/L (16-63); Albumin Level 2.9 g/dL (3.4-5.0); Alkaline Phosphatase 94 U/L (46-116); Anion Gap 8 mmol/L (8-16); Aspartate Amino Transferase 15 U/L (15-37); Bilirubin,Total 0.8 mg/dL (0.00-1.00); Blood Urea Nitrogen 24 mg/dL (7-18); Calcium 9.6 mg/dL (8.5-10.1); Carbon Dioxide 31 mmol/L (21-32); Chloride 102 mmol/L (98-108); Estimated CRCL calculation 47 ml/min; Estimated Glomerular Filt Rate 50; Glucose 102 mg/dL (70-99); Magnesium 2.3 mg/dL (1.8-2.4); NT Pro B Type Natriuretic Pept 6412 pg/mL (0-125); Osmolality Calculated 296 mOsm/kg (285-295); Potassium 3.5 mmol/L (3.5-5.1); Sodium 141 mmol/L (136-145); Total Protein 6.9 g/dL (6.4-8.2)
[2021-05-04 06:49] LABS: CRP 2.6 mg/dL (0.0-0.9)
[2021-05-04] MEDS: FUROSEMIDE INJ 40 MG/4 ML VIAL IV PUSH ×2 (09:00→16:49)
--- NOTE | 2021-05-04 09:09 | ECG_ITS ---
Measurements Intervals [place] Rate: 103 P: [place]: 0 QRS: 32 QRSD: 184 T: 224 QT: 440 QTc: 579 Interpretive Statements ATRIAL FIBRILLATION WITH RAPID VENTRICULAR RESPONSE LEFT BUNDLE BRANCH BLOCK BASELINE ARTIFACT- I, II, III, AVR, AVL, AVF ABNORMAL ECG Electronically Signed On 05-04-2021 10:14:34 RETAIL CUSTOMER SERVICE SPECIALIST by Kahlil Farfan D.O.
--- NOTE | 2021-05-04 09:54 | PM.IMHP ---
H&P: HPI History of Present Illness Date/Time: 05/04/21 09:54 this is a 76-year-old male who presented to urgent care with complaints of shortness of breath that he has been experiencing since . Patient has a past medical history of A. fib, congestive heart failure, CAD, GERD, gout, and hyperlipidemia. Patient notes that on he started variance shortness of breath with activities along with congestion productive cough with whitish sputum and fatigue. Patient notes that his situation did not improve and he came to our ER department. Patient WBC 7.1, hemoglobin 10.0 hematocrit 31.7 platelets 200 INR 4.1 sodium 140 potassium 3.6 BUN 24 creatinine 1.5 glucose 151 lactic acid 2.1 magnesium 2.3 function test within normal CRP 2.7 Covid influenza negative, chest x-ray indicates pulmonary edema not to rule out pneumonia, EKG indicates A. fib with RVR heart rate 103. Patient notes that he still is experiencing active cough with white sputum and shortness of breath that has improved since his admission. The patient denies CP, palpitation, extremity numbness, lightheadedness, dizziness, constipation, diarrhea, chills, or fever. <LACEY Ayala - Last Filed: 05/04/21 11:15> Chief Complaint: Shortness of breath <LACEY Ayala - Last Filed: 05/04/21 11:15> Review of Systems Review of Systems: A 14 organ system Review of Systems was performed and pertinent positives included in the HPI, otherwise remaining ROS is negative. <LACEY Ayala - Last Filed: 05/04/21 11:15> [facility] Past Medical History Medical History: Medical History (Updated 05/04/21 @ 10:56 by LACEY Ayala) Atrial fibrillation Atrial fibrillation with RVR Congestive heart failure Coronary artery disease GERD (gastroesophageal reflux disease) GERD (gastroesophageal reflux disease) Gout Hyperlipidemia <LACEY Ayala - Last Filed: 05/04/21 11:15> Surgical History Surgical History: Surgical History (Updated 05/03/21 @ 11:19 by Dmitriy Diana MD) H/O heart bypass surgery x4 <LACEY Ayala - Last Filed: 05/04/21 11:15> Social History Social History: Social History Smoking packs per day: 2 Smoking cigarettes per day: 40.0 Years smoked: 35 Smoking pack-years: 70.00 Smoking status: Former smoker Tobacco type: cigarettes Alcohol intake: never Substance use: never Spiritual care concerns: No <LACEY Ayala - Last Filed: 05/04/21 11:15> Meds Home Medications and Allergies Home medications: Home Medications Medication Instructions Recorded Confirmed Type allopurinol 100 mg PO BID 08/26/20 05/03/21 History aspirin [Adult Aspirin EC Low 81 mg PO DAILY 08/26/20 05/03/21 History Strength] dofetilide [Tikosyn] 500 mcg PO Q12H 08/26/20 05/03/21 History ferrous fumarate 325 mg PO DAILY 08/26/20 05/03/21 History furosemide 80 mg PO DAILY 08/26/20 05/03/21 History gabapentin 800 mg PO BID 08/26/20 05/03/21 History magnesium oxide [MagOx] 400 mg PO DAILY 08/26/20 05/03/21 History pantoprazole 40 mg PO QAM 08/26/20 05/03/21 History pravastatin 40 mg PO HS 08/26/20 05/03/21 History sacubitril-valsartan [Entresto] 97 - 103 tablet PO BID 08/26/20 05/03/21 History warfarin 3 mg PO DAILY 08/26/20 05/03/21 History spironolactone 25 mg PO DAILY 05/03/21 05/03/21 History <LACEY Ayala - Last Filed: 05/04/21 11:15> Allergies/Adverse reactions: Allergies Allergy/AdvReac Type Severity Reaction Status Date / Time No Known Allergies Allergy Verified 05/03/21 11:22 <LACEY Ayala - Last Filed: 05/04/21 11:15> Vital Signs Vital Signs - 24 hr 05/03/21 11:08 05/03/21 12:41 05/03/21 14:14 Temperature 96.6 F L Pulse Rate 70 126 H 70 Respiratory Rate 40 H 24 H Blood Pressure 138/72 157/74 H Pulse Oximetry 95 95 05/03/21 14:33 05/03/21 14:40 05/03/21 16:30 Temperature 96.8 F L Pulse Rate 73
[2021-05-04] MEDS: guaiFENesin 12 HR 600 MG TABCR 1200 MG PO ×2 (10:03→21:19)
[2021-05-04] MEDS: MAGNESIUM OXIDE 400 MG TABLET PO (10:03)
[2021-05-04] MEDS: SACUBITRIL/VALSARTAN 49-51 MG TABLET 2 TABLET PO (10:03)
[2021-05-04] MEDS: GABAPENTIN 400 MG CAPSULE 800 MG PO ×2 (10:03→16:49)
[2021-05-04] MEDS: ASPIRIN 81 MG ENTERIC TABLET PO (10:03)
[2021-05-04] MEDS: PANTOPRAZOLE 40 MG TABLET PO (10:04)
[2021-05-04] MEDS: FERROUS SULFATE 324 MG TABLET PO (10:04)
[2021-05-04] MEDS: BENZONATATE 100 MG CAPSULE 200 MG PO ×3 (10:04→16:49)
[2021-05-04] MEDS: SPIRONOLACTONE 25 MG TABLET PO (10:05)
[2021-05-04] MEDS: allopurinoL 100 MG TABLET PO ×2 (10:05→16:49)
--- NOTE | 2021-05-04 16:00 | PC.NURSE ---
PT GIVEN INCENTIVE SPIROMETER AND INSTRUCTIONS FOR USE. ACHIEVED 1000ML, ENCOURAGED TO TAKE DEEP BREATHS. SPO2 96% ON ROOM AIR. RHONCHI RIGHT UPPER/LOWER LOBE, DIMINISHED LEFT.
--- NOTE | 2021-05-04 19:00 | PC.NURSE ---
Completed bedside change of shift report. Patient is resting comfortably in bed. Patient stated that he is not experiencing any pain at this time, and he does not need anything else at this time.
[2021-05-04] MEDS: SACUBITRIL/VALSARTAN 49-51 MG TABLET 1 TABLET PO (21:18)
[2021-05-04] MEDS: METOPROLOL TARTRATE 6.25 MG TABLET PO (21:18)
[2021-05-04] MEDS: PRAVASTATIN SODIUM 20 MG TABLET 40 MG PO (21:19)
--- NOTE | 2021-05-04 22:00 | PC.NURSE ---
Completed patient rounding. Patient is sleeping comfortably in bed, with no signs of pain or discomfort.
--- NOTE | 2021-05-04 23:00 | PC.NURSE ---
Completed patient rounding. Patient is sleeping quietly in bed, with no signs of pain or discomfort.
[2021-05-05] VITALS (8 sets, daily range): BP systolic 125–144; BP diastolic 66–86; PULSE 72–103; RESP 16–20; TEMP 36.4–36.9; O2SAT 90–100
--- NOTE | 2021-05-05 02:00 | PC.NURSE ---
Completed patient rounding. Patient is sleeping quietly in bed, with no signs of pain or discomfort.
[2021-05-05 05:27] LABS: Hematocrit 30.6 % (37.0-46.0); Hemoglobin 9.4 g/dL (12.4-15.3); Mean Corpuscular HGB Conc 30.7 g/dL (32.0-36.0); Mean Corpuscular Hemoglobin 30.7 pg (27.0-31.0); Mean Platelet Volume 11.6 fl (8.7-11.0); Platelet Count Result 202 K/mm3 (150-420); Red Blood Count 3.06 M/mm3 (4.70-6.10); Red Cell Distribution Width 14.7 % (11.6-14.4); White Blood Count 5.9 K/mm3 (4.8-10.8)
[2021-05-05] MEDS: IPRATROPIUM 0.5 MG/ALBUTEROL SULFATE 2.5 MG AMPUL.NEB 3 ML INHALATION ×2 (05:33→12:45)
[2021-05-05 05:52] LABS: Alanine Aminotransferase 20 U/L (16-63); Albumin Level 2.7 g/dL (3.4-5.0); Alkaline Phosphatase 90 U/L (46-116); Anion Gap 8 mmol/L (8-16); Aspartate Amino Transferase 28 U/L (15-37); Bilirubin,Total 0.6 mg/dL (0.00-1.00); Blood Urea Nitrogen 24 mg/dL (7-18); Calcium 9.7 mg/dL (8.5-10.1); Carbon Dioxide 31 mmol/L (21-32); Chloride 104 mmol/L (98-108); Estimated CRCL calculation 48 ml/min; Estimated Glomerular Filt Rate 51; Glucose 120 mg/dL (70-99); Magnesium 2.1 mg/dL (1.8-2.4); NT Pro B Type Natriuretic Pept 3153 pg/mL (0-125); Osmolality Calculated 301 mOsm/kg (285-295); Sodium 143 mmol/L (136-145); Total Protein 6.7 g/dL (6.4-8.2)
[2021-05-05] MEDS: SACUBITRIL/VALSARTAN 49-51 MG TABLET 1 TABLET PO (09:25)
[2021-05-05] MEDS: ASPIRIN 81 MG ENTERIC TABLET PO (09:26)
[2021-05-05] MEDS: METOPROLOL TARTRATE 6.25 MG TABLET PO (09:26)
[2021-05-05] MEDS: MAGNESIUM OXIDE 400 MG TABLET PO (09:26)
[2021-05-05] MEDS: guaiFENesin 12 HR 600 MG TABCR 1200 MG PO (09:27)
[2021-05-05] MEDS: BENZONATATE 100 MG CAPSULE 200 MG PO (09:27)
[2021-05-05] MEDS: GABAPENTIN 400 MG CAPSULE 800 MG PO (09:27)
[2021-05-05] MEDS: FERROUS SULFATE 324 MG TABLET PO (09:28)
[2021-05-05] MEDS: allopurinoL 100 MG TABLET PO (09:28)
[2021-05-05] MEDS: SPIRONOLACTONE 25 MG TABLET PO (09:28)
[2021-05-05] MEDS: PANTOPRAZOLE 40 MG TABLET PO (09:28)
[2021-05-05] MEDS: FUROSEMIDE INJ 40 MG/4 ML VIAL IV PUSH (09:29)
[2021-05-05] MEDS: POTASSIUM CHLORIDE 20 MEQ TABLET 40 MEQ PO (09:31)
--- NOTE | 2021-05-05 11:49 | P.DS_ITS ---
DS: Admitting Diagnosis Discharge Date 05/05/2021 <OSWALDO Abebe - Last Filed: 05/05/21 13:00> Admitting Diagnosis Pneumonia, CHF, A fib <OSWALDO Abebe - Last Filed: 05/05/21 13:00> DS: Discharge Diagnosis Discharge Diagnosis (1) Pneumonia: Qualifiers: Laterality: bilateral Lung location: unspecified part of lung Pneumonia type: due to unspecified organism Qualified Code(s): J18.9 - Pneumonia, unspecified organism <OSWALDO Abebe - Last Filed: 05/05/21 13:00> Code(s): J18.9 - Pneumonia, unspecified organism <OSWALDO Abebe - Last Filed: 05/05/21 13:00> Status: Acute <OSWALDO Abebe - Last Filed: 05/05/21 13:00> Assessment and Plan: * Chest x-ray indicate possible pneumonia * White count within normal limit patient afebrile * Started Levaquin, was given 1 dose of Rocephin in the ED * Blood culture pending * Lactic acid 2.1>1.7>2.0 * CRP2.7>2.6 05/05/2021 Will DC home with Levaquin to complete the course. Pt much improved. <OSWALDO Abebe - Last Filed: 05/05/21 13:00> (2) CHF (congestive heart failure): Qualifiers: Heart failure chronicity: acute on chronic Heart failure type: systolic Qualified Code(s): I50.23 - Acute on chronic systolic (congestive) heart failure <OSWALDO Abebe - Last Filed: 05/05/21 13:00> Code(s): I50.9 - Heart failure, unspecified <OSWALDO Abebe - Last Filed: 05/05/21 13:00> Status: Acute <OSWALDO Abebe - Last Filed: 05/05/21 13:00> Assessment and Plan: * Patient receiving Entresto, Lasix 40 mg once twice daily and spironolactone * Daily weights and intake and output ordered * Chest x-ray indicate pulmonary edema * Continue inhaler, nebulizer, supplementary Tessalon Perles and guaifenesin * Entresto decrease to 49/51 vs 97/103. Patient in A. fib with RVR metoprolol started Entresto decreased due to soft BP * BNP 7187>6412 05/05/2021 BNP decreased to 3153, Lungs clear, no peripheral edema, VSS, Pt will need to f/u with his skiver machine and his PCP, will continue Entresto, Aldactone and Lasix on DC. <OSWALDO Abebe - Last Filed: 05/05/21 13:00> (3) Coronary artery disease: Code(s): I25.10 - Atherosclerotic heart disease of [place] coronary artery without angina pectoris <OSWALDO Abebe - Last Filed: 05/05/21 13:00> Status: Acute <OSWALDO Abebe - Last Filed: 05/05/21 13:00> Assessment and Plan: * Continue statin <OSWALDO Abebe - Last Filed: 05/05/21 13:00> (4) Atrial fibrillation with RVR: Code(s): I48.91 - Unspecified atrial fibrillation <OSWALDO Abebe - Last Filed: 05/05/21 13:00> Status: Acute <OSWALDO Abebe - Last Filed: 05/05/21 13:00> Assessment and Plan: * Patient with a history of A. fib * EKG indicates A. fib with RVR with a heart rate of 103 * Metoprolol 6.25 mg every 12 hours ordered * Warfarin on hold due to supratherapeutic on admission 4.1>3.5, will resume when appropriate * Continue telemetry 05/05/2021 Telemetry showing underlying A fib with paced rhythm, Pt to follow up with skiver machine after DC <OSWALDO Abebe - Last Filed: 05/05/21 13:00> (5) GERD (gastroesophageal reflux disease): Code(s): K21.9 - Gastro-esophageal reflux disease without esophagitis <OSWALDO Abebe - Last Filed: 05/05/21 13:00> Status: Acute <Juanjo Villanueva, FISHING REEL ASSEMBLER-C - Last Filed: 05/05/21 13:00> Assessment and Plan:
--- NOTE | 2021-05-05 11:49 | PM.DS ---
DS: Admitting Diagnosis Discharge Date 05/05/2021 <OSWALDO Abebe - Last Filed: 05/05/21 13:00> Admitting Diagnosis Pneumonia, CHF, A fib <OSWALDO Abebe - Last Filed: 05/05/21 13:00> DS: Discharge Diagnosis Discharge Diagnosis (1) Pneumonia: Qualifiers: Laterality: bilateral Lung location: unspecified part of lung Pneumonia type: due to unspecified organism Qualified Code(s): J18.9 - Pneumonia, unspecified organism <OSWALDO Abebe - Last Filed: 05/05/21 13:00> Code(s): J18.9 - Pneumonia, unspecified organism <OSWALDO Abebe - Last Filed: 05/05/21 13:00> Status: Acute <OSWALDO Abebe - Last Filed: 05/05/21 13:00> Assessment and Plan: Chest x-ray indicate possible pneumonia White count within normal limit patient afebrile Started Levaquin, was given 1 dose of Rocephin in the ED Blood culture pending Lactic acid 2.1>1.7>2.0 CRP2.7>2.6 05/05/2021 Will DC home with Levaquin to complete the course. Pt much improved. <OSWALDO Abebe - Last Filed: 05/05/21 13:00> (2) CHF (congestive heart failure): Qualifiers: Heart failure chronicity: acute on chronic Heart failure type: systolic Qualified Code(s): I50.23 - Acute on chronic systolic (congestive) heart failure <OSWALDO Abebe - Last Filed: 05/05/21 13:00> Code(s): I50.9 - Heart failure, unspecified <OSWALDO Abeeb - Last Filed: 05/05/21 13:00> Status: Acute <OSWALDO Abebe - Last Filed: 05/05/21 13:00> Assessment and Plan: Patient receiving Entresto, Lasix 40 mg once twice daily and spironolactone Daily weights and intake and output ordered Chest x-ray indicate pulmonary edema Continue inhaler, nebulizer, supplementary Tessalon Perles and guaifenesin Entresto decrease to 49/51 vs 97/103. Patient in A. fib with RVR metoprolol started Entresto decreased due to soft BP BNP 7187>6412 05/05/2021 BNP decreased to 3153, Lungs clear, no peripheral edema, VSS, Pt will need to f/u with his dovetail machine operator and his PCP, will continue Entresto, Aldactone and Lasix on DC. <OSWALDO Abebe - Last Filed: 05/05/21 13:00> (3) Coronary artery disease: Code(s): I25.10 - Atherosclerotic heart disease of [place] coronary artery without angina pectoris <OSWALDO Abebe - Last Filed: 05/05/21 13:00> Status: Acute <OSWALDO Abebe - Last Filed: 05/05/21 13:00> Assessment and Plan: Continue statin <OSWALDO Abebe - Last Filed: 05/05/21 13:00> (4) Atrial fibrillation with RVR: Code(s): I48.91 - Unspecified atrial fibrillation <OSWALDO Abebe - Last Filed: 05/05/21 13:00> Status: Acute <OSWALDO Abebe - Last Filed: 05/05/21 13:00> Assessment and Plan: Patient with a history of A. fib EKG indicates A. fib with RVR with a heart rate of 103 Metoprolol 6.25 mg every 12 hours ordered Warfarin on hold due to supratherapeutic on admission 4.1>3.5, will resume when appropriate Continue telemetry 05/05/2021 Telemetry showing underlying A fib with paced rhythm, Pt to follow up with dovetail machine operator after DC <OSWALDO Abebe - Last Filed: 05/05/21 13:00> (5) GERD (gastroesophageal reflux disease): Code(s): K21.9 - Gastro-esophageal reflux disease without esophagitis <OSWALDO Abebe - Last Filed: 05/05/21 13:00> Status: Acute <OSWALDO Abebe - Last Filed: 05/05/21 13:00> Assessment and Plan: Continue pantoprazole <OSWALDO Abebe - Last Filed: 05/05/21 13:00> (6) Gout: Code(s): M10.9 - Gout, unspecified <OSWALDO Abebe - Last Filed: 05/05/21 13:00> Status: Acute <OSWALDO Abebe - Last Filed: 05/05/21 13:00> Assessment and Plan: Continue allopurinol <Juanjo Villanueva APN
--- NOTE | 2021-05-05 16:12 | PC.NURSE ---
1340 Iv removed. dc instructions went over. vocalizes an understanding. went over with significant other. she claims understanding. left meds and family called and awre and will return. refused noon meal and meds. I just want out will take at home.
== END 2021-05-05 13:40 | disposition home or self-care (01) | DRG 194 ==
LOC: CHSED 14:13 → CHS2ND 14:22
PROVIDERS: Nurse Practitioner; Admitting Provider Emergency Medicine; Emergency Provider Emergency Medicine; PCP Internal Medicine; Visit Provider Emergency Medicine
DX: J18.9 Pneumonia, unspecified organism (principal); I48.20 Chronic atrial fibrillation, unspecified; N17.9 Acute kidney failure, unspecified; I50.9 Heart failure, unspecified; I25.10 Atherosclerotic heart disease of native coronary artery without angina pectoris; K21.9 Gastro-esophageal reflux disease without esophagitis; M10.9 Gout, unspecified; E78.5 Hyperlipidemia, unspecified; R79.1 Abnormal coagulation profile; Z79.01 Long term (current) use of anticoagulants; Z79.82 Long term (current) use of aspirin
CPT/HCPCS: 36415; 71046; 80053; 83605; 83735; 83880; 85025; 85027; 85610; 86140; 87040; 87502; 93005; 94640; 96365; 96366; 96367; 96375; 97161; 97165; 99285; A9270; C9803; G0378; J0696; J1940; J1956; U0003; U0005

== ENCOUNTER 2021-05-15 05:19 | Inpatient (IN) | payer MEDICARE, SELFPAY ==
[2021-05-15] VITALS (9 sets, daily range): BP systolic 138–154; BP diastolic 71–92; PULSE 84–100; RESP 20–32; TEMP 36.3–36.6; O2SAT 92–100; BMI 35.0
--- NOTE | ~2021-05-15 | XR_ITS ---
EXAMINATION: XR chest 1V portable DATE: 05/15/2021 06:47 INDICATION: Shortness of breath TECHNIQUE: One view COMPARISON: Chest radiograph dated 05/03/2021 FINDINGS: Persistent opacities throughout the right lung and in the left mid to lower lung zones. Small bilater al pleural effusions. No pneumothorax. Cardiomegaly. Median sternotomy wires, ostial markers and medi astinal surgical clips consistent with prior coronary artery bypass grafting. Three lead pacemaker/AI CD seen with leads projecting over the expected locations of the right atrial appendage, apex of the right ventricle and overlying the left ventricle likely having traversed the coronary sinus. The pace maker obscures the lateral left lower lung zone. IMPRESSION: 1. Persistent diffuse bilateral lung disease which could represent pulmonary edema related to congest dereje heart failure or pneumonia. 2. Small bilateral pleural effusions. 3. Cardiomegaly. Reviewed, dictated and finalized at location A. HIATRIC NURSE PRACTITIONER IMPRESSION: 1. Persistent diffuse bilateral lung disease which could represent pulmonary ed kush related to congestive heart failure or pneumonia. 2. Small bilateral pleural effusions. 3. Cardiomegaly.
--- NOTE | ~2021-05-15 | CT_ITS ---
EXAMINATION: CTA chest PE protocol DATE: 05/15/2021 07:32 INDICATION: Dyspnea. Elevated d-dimer. TECHNIQUE: Computed tomography (CT) pulmonary angiogram of the chest was performed with 100 mL Omnipa que-350 intravenous contrast. Additional 3D reconstructions utilizing coronal maximum intensity proje ction (MIP) were performed. Automated exposure control and iterative reconstruction technique were em ployed. The dose-length product was 665.34 mGy-cm. COMPARISON: 02/17/2018 FINDINGS: Excellent contrast opacification of the pulmonary arteries. There is moderate streak artifact from de nse contrast in the superior vena cava and right atrium as well as related to a 3-lead cardiac pacema ker/defibrillator with lead tip terminating at the right atrial appendage, apex of the right ventricl e and in a coronary vein overlying the lateral wall of the left ventricle. There is also mild respira tory motion artifact. Together this decreases sensitivity in some of the smaller segmental and subseg mental pulmonary arteries. Filling defect is seen within the posterior basilar segmental peripheral s ubsegmental pulmonary arteries in the posterior and lateral basilar segments of the left lower lobe. No other definitive pulmonary emboli identified. Unchanged small loculated complex left pleural effus ion at the posterior sulcus, likely exudative with both increased density of the fluid component as w ell as pleural thickening. Stable appearance of a region of round atelectasis with consolidation, vol ume loss and architectural distortion in the posterior and lateral basilar segments of the left lower lobe. There is no appreciable parenchymal enhancement in the region of round atelectasis which given the presence of pulmonary emboli in the feeding pulmonary arteries is could be due to pulmonary infa rct which along with the pulmonary emboli could be either acute or chronic. Small posterior layering right pleural effusion without pleural thickening and with simple fluid attenuation. Again seen is lorenzana btle line thickening with scattered groundglass opacities throughout the right lung along with some p eripheral septal line thickening in the left mid and lower lung which could be due to recurrent pulmo nary edema although there also appears to be some honeycombing and suspect there is underlying compon ent of usual interstitial pneumonia (UIP) pattern chronic interstitial lung disease. Pneumatocele in the right lower lobe. Cardiomegaly. Reflux of contrast into the inferior vena cava and hepatic veins consistent with tricuspid regurgitation. Atherosclerotic coronary artery calcific lesions with change of prior median sternotomy and coronary artery bypass grafting. No pericardial effusion. Fusiform an eurysm of the ascending thoracic aorta measuring up to 4.4 cm in maximal diameter. No significant octavio nge in mild likely reactive mediastinal and right hilar lymphadenopathy. Bilateral gynecomastia. Ther e appears to be some liver surface nodularity suspicious for cirrhosis. Mild thoracic dextroscoliosis with mild spondylosis. Severe lower cervical spondylosis. IMPRESSION: 1. Pulmonary emboli in the posterior and lateral basilar segments of the left lower lobe which could be either acute or chronic, the latter suggested by chronic round atelectasis in the affected segment s which appears relatively ischemic and chronic small loculated left pleural effusion which could be secondary to pulmonary infarct. 2. Interstitial and mild airspace opacities throughout the right lung and to lesser degree in the lef t mid and lower lung zones which could be due to pulmonary edema, IP pattern chronic interstitial silvano g disease or combination thereof. 3. Moderate cardiomegaly. 4. 4.4 cm ascending thoracic aortic aneurysm. 5. Suggestion of cirrhosis of the liver. 6. Unchanged mild likely reactive mediastinal and right hilar lymphadenopathy.
--- NOTE | 2021-05-15 05:35 | ECG_ITS ---
Measurements Intervals [place] Rate: 92 P: [place]: 0 QRS: -11 QRSD: 174 T: 167 QT: 454 QTc: 563 Interpretive Statements ATRIAL FIBRILLATION ELECTRONIC VENTRICULAR PACEMAKER COMPLEXES LEFT BUNDLE BRANCH BLOCK BASELINE ARTIFACT- II, III, AVR, AVL,A VF, V3 NO FURTHER INTERPRETATION IS POSSIBLE ABNORMAL ECG Electronically Signed On 05-15-2021 8:21:45 DUMB WAITER OPERATOR by Kahlil Farfan D.O.
[2021-05-15] MEDS: FUROSEMIDE INJ 40 MG/4 ML VIAL IV PUSH ×2 (05:51→08:35)
--- NOTE | 2021-05-15 05:58 | ED.SOB ---
HPI - SOB/Dyspnea General Chief Complaint: Shortness of Breath/Dyspnea <Franklin Jones MD - Last Filed: 05/15/21 06:00> Stated Complaint: Shortness of breath <Franklin Jones MD - Last Filed: 05/15/21 06:00> Source: patient and family <Franklin Jones MD - Last Filed: 05/15/21 06:00> Mode of arrival: ambulatory <Franklin Jones MD - Last Filed: 05/15/21 06:00> History of Present Illness HPI Narrative: this is a 76-year-old gentleman with a history of atrial fibrillation, CHF and hypertension presents with increasing shortness of breath symptoms started yesterday and had gotten worse over the last couple of days currently there is no chest pain no fever chills no diaphoresis no nausea vomiting no abdominal pain. Patient has a history of CHF and was recently discharged from the hospital with pneumonia. <Franklin Jones MD - Last Filed: 05/15/21 06:00> MD elicited complaint: shortness of breath <Franklin Jones MD - Last Filed: 05/15/21 06:00> Pertinent past history: congestive heart failure <Franklin Jones MD - Last Filed: 05/15/21 06:00> Onset (ago): day(s) <Franklin Jones MD - Last Filed: 05/15/21 06:00> Context: recent illness <Franklin Jones MD - Last Filed: 05/15/21 06:00> Severity: moderate <Franklin Jones MD - Last Filed: 05/15/21 06:00> Exacerbating factors: lying flat <Franklin Jones MD - Last Filed: 05/15/21 06:00> Related Data Home Medications: Home Medications Medication Instructions Recorded Confirmed allopurinol 100 mg PO BID 08/26/20 05/15/21 aspirin 81 mg PO DAILY 08/26/20 05/15/21 dofetilide [Tikosyn] 500 mcg PO Q12H 08/26/20 05/15/21 ferrous fumarate 325 mg PO DAILY 08/26/20 05/15/21 gabapentin 800 mg PO BID 08/26/20 05/15/21 magnesium oxide [MagOx] 400 mg PO DAILY 08/26/20 05/15/21 pantoprazole 40 mg PO QAM 08/26/20 05/15/21 pravastatin 40 mg PO HS 08/26/20 05/15/21 warfarin 3 mg PO DAILY 08/26/20 05/15/21 spironolactone 25 mg PO DAILY 05/03/21 05/15/21 <Franklin Jones MD - Last Filed: 05/15/21 06:00> Allergies/Adverse Reactions: Allergies Allergy/AdvReac Type Severity Reaction Status Date / Time No Known Allergies Allergy Verified 05/15/21 05:35 <Franklin Jones MD - Last Filed: 05/15/21 06:00> Review of Systems Review of Systems: All systems reviewed & are unremarkable except as noted in HPI and below <Franklin Jones MD - Last Filed: 05/15/21 06:00> PMFSH Past Medical History Medical History: Medical History Atrial fibrillation Atrial fibrillation with RVR Congestive heart failure Coronary artery disease GERD (gastroesophageal reflux disease) GERD (gastroesophageal reflux disease) Gout Hyperlipidemia <Franklin Jones MD - Last Filed: 05/15/21 06:00> Surgical History Surgical History: Surgical History H/O heart bypass surgery x4 <Franklin Jones MD - Last Filed: 05/15/21 06:00> Social History Social History: Social History Smoking packs per day: 2 Smoking cigarettes per day: 40.0 Years smoked: 35 Smoking pack-years: 70.00 Smoking status: Former smoker Tobacco type: cigarettes Alcohol intake: never Substance use: never Spiritual care concerns: No <Franklin Jones MD - Last Filed: 05/15/21 06:00> Exam Const: General: no acute distress and alert <Franklin Jones MD - Last Filed: 05/15/21 06:00> Orientation/consciousness: patient oriented x3 <Franklin Jones MD - Last Filed: 05/15/21 06:00> HENMT: Head: normal to inspection <Franklin Jones MD - Last Filed: 05/15/21 06:00> Eyes: Conjunctivae: conjunctivae normal <Franklin Jones MD - Last Filed: 05/15/21 06:00> Pupils: Equal, round and reactive pupils present <Kapil
[2021-05-15 06:20] LABS: Basophils Absolute Auto 0.05 K/mm3 (0.00-0.10); Basophils Percent Auto 0.8 % (0.0-1.0); Eosinophils Absolute Auto 0.43 K/mm3 (0.02-0.50); Eosinophils Percent Auto 7.2 % (1.0-6.0); Hematocrit 31.5 % (37.0-46.0); Hemoglobin 10.1 g/dL (12.4-15.3); Immature Granulocyte Absolute 0.03 K/mm3 (0.00-0.00); Immature Granulocyte Percent A 0.5 % (0.0-0.0); Lymphocytes Absolute Auto 1.01 K/mm3 (1.10-4.50); Lymphocytes Percent Auto 16.9 % (18.0-42.0); Mean Corpuscular HGB Conc 32.1 g/dL (32.0-36.0); Mean Corpuscular Hemoglobin 31.7 pg (27.0-31.0); Mean Corpuscular Volume 98.7 fL (78.0-102.0); Mean Platelet Volume 10.9 fl (8.7-11.0); Monocytes Absolute Auto 0.63 K/mm3 (0.10-0.90); Monocytes Percent Auto 10.5 % (2.0-11.0); Neutrophils Absolute Auto 3.8 K/mm3 (1.7-7.2); Neutrophils Percent Auto 64.1 % (50.0-70.0); Platelet Count Result 191 K/mm3 (150-420); Red Blood Count 3.19 M/mm3 (4.70-6.10); Red Cell Distribution Width 14.6 % (11.6-14.4)
[2021-05-15 06:23] LABS: Base Excess ABG 3.6 mmol/L (0-2); HCO3 ABG 27.8 mmol/L (23-29); Oxygen Content ABG 15.6 %vol (16.0-22.0); Oxyhemoglobin 96.8 % (94-100); PCO2 ABG 40.2 mmHg (35-45); PO2 ABG 128.7 mmHg (75-85); Total Hemoglobin 11.3 g/dL (12.0-18.0); pH ABG 7.46 (7.35-7.45)
[2021-05-15 06:24] LABS: Device ROOM AIR; Site Drawn LEFT BRACHIAL
[2021-05-15 06:35] LABS: SARS-CoV-2 RNA PCR Negative (Negative)
[2021-05-15 06:35] LABS: INR 1.9; Partial Thromboplastin Time 36.5 SEC (23.90-30.70); Prothrombin Time 19.9 Seconds (9.50-12.10)
[2021-05-15 06:44] LABS: Alanine Aminotransferase 20 U/L (16-63); Albumin Level 3.1 g/dL (3.4-5.0); Alkaline Phosphatase 83 U/L (46-116); Anion Gap 10 mmol/L (8-16); Aspartate Amino Transferase 22 U/L (15-37); Bilirubin,Total 0.4 mg/dL (0.00-1.00); Blood Urea Nitrogen 18 mg/dL (7-18); Calcium 9.2 mg/dL (8.5-10.1); Carbon Dioxide 27 mmol/L (21-32); Chloride 101 mmol/L (98-108); Estimated CRCL calculation 49 ml/min; Estimated Glomerular Filt Rate 55; Glucose 131 mg/dL (70-99); Magnesium 1.8 mg/dL (1.8-2.4); NT Pro B Type Natriuretic Pept 3494 pg/mL (0-125); Osmolality Calculated 289 mOsm/kg (285-295); Potassium 3.8 mmol/L (3.5-5.1); Sodium 138 mmol/L (136-145); Total Protein 7.1 g/dL (6.4-8.2); Troponin I 14.7 ng/L (0.00-60.4)
[2021-05-15 06:59] LABS: D Dimer 0.92 mg/L (0.19-0.50)
[2021-05-15] MEDS: methylPREDNISolone SOD SUCC 125 MG VIAL IV PUSH ×3 (08:35→21:30)
[2021-05-15 08:43] LABS: Base Excess ABG 3.1 mmol/L (0-2); HCO3 ABG 27.7 mmol/L (23-29); Oxygen Content ABG 14.5 %vol (16.0-22.0); Oxygen Saturation ABG 93.6 % (95-97); Oxyhemoglobin 93.1 % (94-100); PCO2 ABG 42.2 mmHg (35-45); PO2 ABG 72.9 mmHg (75-85); pH ABG 7.44 (7.35-7.45)
[2021-05-15 08:44] LABS: Site Drawn RIGHT RADIAL
[2021-05-15 08:45] LABS: Device ROOM AIR; Modified Allen's Test Pass
[2021-05-15] MEDS: ALBUTEROL SULFATE (*SP) INHALER 4 PUFF INHALATION ×4 (09:10→21:35)
[2021-05-15] MEDS: UMECLIDINIUM BROMIDE 62.5 MCG ELLIPTA 1 PUFF INHALATION (09:21)
--- NOTE | 2021-05-15 10:50 | PC.NURSE ---
fax to dr booth unsuccessful, copy of cta given to patient
--- NOTE | 2021-05-15 12:59 | PC.NURSE ---
Patient arrived to floor at 11:45. Patient refused lunch. nurse monitoring applied. Wt, ht, and history obtained. Patient comfortable at this time.
--- NOTE | 2021-05-15 13:05 | PHAR ---
05/15/21: spoke w/[facility]. pt. has not filled tikosyn in a year. he takes warfarin 3mg daily (last filled 05/05/21). has not ever filled 2.5mg daily dose there per [facility]. tls
[2021-05-15] MEDS: GABAPENTIN 400 MG CAPSULE 800 MG PO (16:37)
[2021-05-15] MEDS: allopurinoL 100 MG TABLET PO (16:38)
[2021-05-15] MEDS: FUROSEMIDE 40 MG TABLET PO (16:38)
[2021-05-15] MEDS: WARFARIN (*PBKC) 1 MG TABLET 3 MG PO (16:38)
--- NOTE | 2021-05-15 17:43 | PC.NURSE ---
Patient continues on telemetry with irregular rhythm and a-fib noted. Heart rate ranges between 90 and 115. Patient denies chest pain or SOB at rest. Appetite poor this shift. Denies nausea or abdominal pain at this time. Patient does state that he becomes SOB with any exertion.
[2021-05-15] MEDS: METOPROLOL TARTRATE 6.25 MG TABLET PO (21:30)
[2021-05-15] MEDS: PRAVASTATIN SODIUM 20 MG TABLET 40 MG PO (21:31)
[2021-05-15] MEDS: SACUBITRIL/VALSARTAN 49-51 MG TABLET 1 TABLET PO (21:31)
[2021-05-16] VITALS (10 sets, daily range): BP systolic 111–129; BP diastolic 62–63; PULSE 72–100; RESP 20; TEMP 36.2–36.6; O2SAT 94–95
--- NOTE | 2021-05-16 00:29 | PC.NURSE ---
Pt is sleeping on his back with the HOB elevated and room light dimmed per pt request. Bed is in lowest position and call light within reach.
[2021-05-16] MEDS: methylPREDNISolone SOD SUCC 125 MG VIAL IV PUSH ×4 (02:01→20:58)
[2021-05-16 05:58] LABS: Hematocrit 31.3 % (37.0-46.0); Immature Granulocyte Absolute 0.01 K/mm3 (0.00-0.00); Immature Granulocyte Percent A 0.2 % (0.0-0.0); Lymphocytes Absolute Auto 0.46 K/mm3 (1.10-4.50); Lymphocytes Percent Auto 9.1 % (18.0-42.0); Mean Corpuscular HGB Conc 31.9 g/dL (32.0-36.0); Mean Corpuscular Hemoglobin 31.5 pg (27.0-31.0); Mean Corpuscular Volume 98.7 fL (78.0-102.0); Monocytes Absolute Auto 0.06 K/mm3 (0.10-0.90); Monocytes Percent Auto 1.2 % (2.0-11.0); Neutrophils Absolute Auto 4.6 K/mm3 (1.7-7.2); Neutrophils Percent Auto 89.5 % (50.0-70.0); Platelet Count Result 202 K/mm3 (150-420); Red Blood Count 3.17 M/mm3 (4.70-6.10); Red Cell Distribution Width 14.7 % (11.6-14.4); White Blood Count 5.1 K/mm3 (4.8-10.8)
[2021-05-16 06:25] LABS: Alanine Aminotransferase 17 U/L (16-63); Albumin Level 3.2 g/dL (3.4-5.0); Alkaline Phosphatase 80 U/L (46-116); Anion Gap 9 mmol/L (8-16); Aspartate Amino Transferase 15 U/L (15-37); Bilirubin,Total 0.5 mg/dL (0.00-1.00); Blood Urea Nitrogen 24 mg/dL (7-18); Calcium 9.6 mg/dL (8.5-10.1); Carbon Dioxide 29 mmol/L (21-32); Chloride 99 mmol/L (98-108); Estimated CRCL calculation 49 ml/min; Estimated Glomerular Filt Rate 51; Glucose 231 mg/dL (70-99); Osmolality Calculated 295 mOsm/kg (285-295); Potassium 3.9 mmol/L (3.5-5.1); Sodium 137 mmol/L (136-145); Total Protein 7.3 g/dL (6.4-8.2)
[2021-05-16 06:28] LABS: INR 1.6; Partial Thromboplastin Time 35.6 SEC (23.90-30.70); Prothrombin Time 16.5 Seconds (9.50-12.10)
[2021-05-16 06:48] LABS: NT Pro B Type Natriuretic Pept 9669 pg/mL (0-125)
[2021-05-16] MEDS: ALBUTEROL SULFATE (*SP) INHALER 4 PUFF INHALATION ×4 (09:41→20:56)
[2021-05-16] MEDS: ASPIRIN 81 MG ENTERIC TABLET PO (09:42)
[2021-05-16] MEDS: UMECLIDINIUM BROMIDE 62.5 MCG ELLIPTA 1 PUFF INHALATION (09:42)
[2021-05-16] MEDS: GABAPENTIN 400 MG CAPSULE 800 MG PO ×2 (09:42→17:52)
[2021-05-16] MEDS: ENOXAPARIN 120 MG/0.8 ML SYRINGE 102 MG SUB-Q ×2 (09:42→20:59)
[2021-05-16] MEDS: FUROSEMIDE 40 MG TABLET PO ×2 (09:43→17:52)
[2021-05-16] MEDS: METOPROLOL TARTRATE 6.25 MG TABLET PO ×2 (09:43→20:58)
[2021-05-16] MEDS: allopurinoL 100 MG TABLET PO ×2 (09:43→17:52)
[2021-05-16] MEDS: PANTOPRAZOLE 40 MG TABLET PO (09:43)
[2021-05-16] MEDS: MAGNESIUM OXIDE 400 MG TABLET PO (09:43)
[2021-05-16] MEDS: SACUBITRIL/VALSARTAN 49-51 MG TABLET 1 TABLET PO ×2 (09:43→20:58)
[2021-05-16] MEDS: SPIRONOLACTONE 25 MG TABLET PO (09:43)
--- NOTE | 2021-05-16 11:57 | PM.IMHP ---
H&P: HPI History of Present Illness Date/Time: 05/16/21 11:59-year-old male discharged from our hospital on 05/05/2021 for COPD no longer. Patient has a past medical history of A. fib with RVR, ICD placement, congestive heart failure, CAD, GERD, gout and hyperlipidemia. according to patient he has had shortness of breath tested discharge. Patient notes that on his condition markedly presented to ED on Tuesday. This admission patient was found to have PE in his left lower. Patient is currently on warfarin. According to his deck steward office Dr. Shepard patient received warfarin due to his ICD. Chest x-ray indicate possible pulmonary edema versus pneumonia, WBC 6.0, hemoglobin 10.1, hematocrit 31.5, platelets 191, INR 1.9, D-dimer 0.92 ABG pH 7.17 CO2 20.2, PO2 128.7 bicarb 27.8, sodium 138, potassium 3.8, BUN 18, creatinine 1.37, glucose 141 magnesium 1.8 liver function test within normal limit troponin 14.7 BNP 3494. Patient be admitted for PE. Patient continues to complain of shortness of breath and appears to be short of breath with our conversation Chief Complaint: sob Review of Systems Review of Systems: A 14 organ system Review of Systems was performed and pertinent positives included in the HPI, otherwise remaining ROS is negative. [facility] Past Medical History Medical History Atrial fibrillation Atrial fibrillation with RVR Congestive heart failure Coronary artery disease GERD (gastroesophageal reflux disease) GERD (gastroesophageal reflux disease) Gout Hyperlipidemia Surgical History Surgical History H/O heart bypass surgery x4 Social History Social History Smoking packs per day: 3 Smoking cigarettes per day: 60.0 Years smoked: 35 Smoking pack-years: 105.00 Smoking status: Former smoker Tobacco type: cigarettes Second hand tobacco smoke exposure: Yes Smoking end date: 05/13/93 Alcohol intake: current Drinks per week: 50 Substance use: never Substance use type: does not use Last use: yesterday Spiritual care concerns: No Meds Home Medications and Allergies Home Medications Medication Instructions Recorded Confirmed Type allopurinol 100 mg PO BID 08/26/20 05/15/21 History aspirin 81 mg PO DAILY 08/26/20 05/15/21 History dofetilide [Tikosyn] 500 mcg PO Q12H 08/26/20 05/15/21 History ferrous fumarate 325 mg PO DAILY 08/26/20 05/15/21 History gabapentin 800 mg PO BID 08/26/20 05/15/21 History magnesium oxide [MagOx] 400 mg PO DAILY 08/26/20 05/15/21 History pantoprazole 40 mg PO QAM 08/26/20 05/15/21 History pravastatin 40 mg PO HS 08/26/20 05/15/21 History warfarin 3 mg PO DAILY 08/26/20 05/15/21 History spironolactone 25 mg PO DAILY 05/03/21 05/15/21 History furosemide 40 mg PO BIDWM #60 tablet 05/05/21 05/15/21 Rx levofloxacin 750 mg PO Q48H #4 tablet 05/05/21 05/15/21 Rx metoprolol tartrate 6.25 mg PO BID #15 tablet 05/05/21 05/15/21 Rx sacubitril-valsartan [Entresto] 1 tablet PO Q12HR #60 tablet 05/05/21 05/15/21 Rx warfarin 2.5 mg PO DAILY #7 tablet 05/05/21 05/15/21 Rx Allergies Allergy/AdvReac Type Severity Reaction Status Date / Time No Known Allergies Allergy Verified 05/15/21 05:35 Vital Signs Vital Signs - 24 hr 05/15/21 12:00 05/15/21 14:00 05/15/21 16:00 Temperature 97.4 F L 97.6 F Pulse Rate 94 91 99 Respiratory Rate 20 22 H Blood Pressure 154/92 H 145/85 H Pulse Oximetry 96 92 05/15/21 19:58 05/15/21 21:30 05/15/21 23:09 Temperature 98 F Pulse Rate 100 89 84 Respiratory Rate 22 H Blood Pressure 138/81 Pulse Oximetry 92 05/16/21 00:00 05/16/21 03:41 05/16/21 07:55 Temperature 97.1 F L Pulse Rate 92 72 97 Respiratory Rate 20 Blood Pressure 129/63 Pulse Oximetry 94 05/16/21 09:43 Temperature Pulse Rate 87 Respiratory Rate Blood Pressure
[2021-05-16] MEDS: WARFARIN (*PBKC) 1 MG TABLET 3 MG PO (17:52)
[2021-05-16] MEDS: PRAVASTATIN SODIUM 20 MG TABLET 40 MG PO (20:58)
[2021-05-17] VITALS: BP 122/62; PULSE 98; RESP 20; TEMP 36.6; O2SAT 94
[2021-05-17] MEDS: methylPREDNISolone SOD SUCC 125 MG VIAL IV PUSH ×2 (02:04→09:22)
[2021-05-17 03:32] VITALS: PULSE 84
[2021-05-17 06:25] LABS: Hematocrit 30.1 % (37.0-46.0); Hemoglobin 9.9 g/dL (12.4-15.3); Mean Corpuscular HGB Conc 32.9 g/dL (32.0-36.0); Mean Corpuscular Hemoglobin 32.9 pg (27.0-31.0); Mean Platelet Volume 11.9 fl (8.7-11.0); Platelet Count Result 217 K/mm3 (150-420); Red Blood Count 3.01 M/mm3 (4.70-6.10); Red Cell Distribution Width 15.2 % (11.6-14.4); White Blood Count 12.1 K/mm3 (4.8-10.8)
[2021-05-17 06:55] LABS: Alanine Aminotransferase 17 U/L (16-63); Albumin Level 3.1 g/dL (3.4-5.0); Alkaline Phosphatase 69 U/L (46-116); Anion Gap 9 mmol/L (8-16); Aspartate Amino Transferase 12 U/L (15-37); Bilirubin,Total 0.4 mg/dL (0.00-1.00); Blood Urea Nitrogen 34 mg/dL (7-18); Calcium 9.8 mg/dL (8.5-10.1); Carbon Dioxide 28 mmol/L (21-32); Chloride 99 mmol/L (98-108); Estimated CRCL calculation 49 ml/min; Estimated Glomerular Filt Rate 52; Glucose 196 mg/dL (70-99); Magnesium 2.3 mg/dL (1.8-2.4); NT Pro B Type Natriuretic Pept 6911 pg/mL (0-125); Osmolality Calculated 294 mOsm/kg (285-295); Potassium 3.7 mmol/L (3.5-5.1); Sodium 136 mmol/L (136-145); Total Protein 7.1 g/dL (6.4-8.2)
[2021-05-17 07:35] VITALS: BP 115/66; PULSE 85; RESP 18; TEMP 36.1; O2SAT 96
[2021-05-17 08:25] VITALS: PULSE 95
[2021-05-17 08:48] LABS: INR 2.3; Prothrombin Time 23.9 Seconds (9.50-12.10)
[2021-05-17] MEDS: ENOXAPARIN 120 MG/0.8 ML SYRINGE 102 MG SUB-Q (09:22)
[2021-05-17] MEDS: FUROSEMIDE INJ 40 MG/4 ML VIAL IV PUSH (09:22)
[2021-05-17] MEDS: SACUBITRIL/VALSARTAN 49-51 MG TABLET 1 TABLET PO (09:23)
[2021-05-17] MEDS: PANTOPRAZOLE 40 MG TABLET PO (09:23)
[2021-05-17] MEDS: ALBUTEROL SULFATE (*SP) INHALER 4 PUFF INHALATION (09:23)
[2021-05-17] MEDS: MAGNESIUM OXIDE 400 MG TABLET PO (09:23)
[2021-05-17] MEDS: FUROSEMIDE 40 MG TABLET PO (09:23)
[2021-05-17] MEDS: GABAPENTIN 400 MG CAPSULE 800 MG PO (09:23)
[2021-05-17] MEDS: ASPIRIN 81 MG ENTERIC TABLET PO (09:23)
[2021-05-17] MEDS: SPIRONOLACTONE 25 MG TABLET PO (09:23)
[2021-05-17] MEDS: allopurinoL 100 MG TABLET PO (09:23)
[2021-05-17 09:24] VITALS: PULSE 85
[2021-05-17] MEDS: UMECLIDINIUM BROMIDE 62.5 MCG ELLIPTA 1 PUFF INHALATION (09:24)
[2021-05-17] MEDS: METOPROLOL TARTRATE 6.25 MG TABLET PO (09:24)
--- NOTE | 2021-05-17 12:05 | PC.NURSE ---
All discharge instructions and education reviewed with patient. Patient states understanding. IV site removed, tip intact, dressing applied to site. Patient assisted with getting dressed. All belongings gathered together and sent home with patient, medications returned. Patient accompanied to front door via wheelchair by this nurse, left via private vehicle. Patient denies any questions at discharge.
--- NOTE | 2021-05-17 12:26 | P.DS_ITS ---
DS: Admitting Diagnosis Discharge Date 05/17/2021 <Kirk DesaiKARYC - Last Filed: 05/17/21 12:36> Admitting Diagnosis PE, chf exacerbation <Kirk EucedaLACEY Lares - Last Filed: 05/17/21 12:36> DS: Discharge Diagnosis Discharge Diagnosis (1) Pulmonary embolism: Qualifiers: Acute cor pulmonale presence: without acute cor pulmonale Chronicity: acute Pulmonary embolism type: unspecified Qualified Code(s): I26.99 - Other pulmonary embolism without acute cor pulmonale <Kirk uEcedaKARY LaresC - Last Filed: 05/17/21 12:36> Code(s): I26.99 - Other pulmonary embolism without acute cor pulmonale <Ramonricky KinseyKARY LaresC - Last Filed: 05/17/21 12:36> Status: Acute <Kirk EucedaLACEY Lares - Last Filed: 05/17/21 12:36> Assessment and Plan: * CTA indicates PE in the left lower * Patient currently on warfarin INR 1.9>1.6>2.3 * Continue warfarin <RamonLACEY Wagner - Last Filed: 05/17/21 12:36> (2) Acute exacerbation of chronic obstructive airways disease: Code(s): J44.1 - Chronic obstructive pulmonary disease with (acute) exacerbation <Ramonricky KinseyKARY LaresC - Last Filed: 05/17/21 12:36> Status: Acute <RamonLACEY Wagner - Last Filed: 05/17/21 12:36> Assessment and Plan: * Worsened by PE vs CHF * Continue albuterol and Solu-Medrol <SATURNINO Ayala-C - Last Filed: 05/17/21 12:36> (3) Gout: Code(s): M10.9 - Gout, unspecified <SATURNINO Ayala-C - Last Filed: 05/17/21 12:36> Status: Acute <SATURNINO Ayala-C - Last Filed: 05/17/21 12:36> Assessment and Plan: * Continue allopurinol <SATURNINO Ayala-C - Last Filed: 05/17/21 12:36> (4) GERD (gastroesophageal reflux disease): Code(s): K21.9 - Gastro-esophageal reflux disease without esophagitis <LACEY Ayala - Last Filed: 05/17/21 12:36> Status: Acute <LACEY Ayala - Last Filed: 05/17/21 12:36> Assessment and Plan: * Continue pantoprazole <LACEY Ayala - Last Filed: 05/17/21 12:36> (5) Atrial fibrillation with RVR: Code(s): I48.91 - Unspecified atrial fibrillation <LACEY Ayala - Last Filed: 05/17/21 12:36> Status: Acute <LACEY Ayala - Last Filed: 05/17/21 12:36> Assessment and Plan: * Controlled * Continue telemetry * Continue warfarin along with metoprolol <LACEY Ayala - Last Filed: 05/17/21 12:36> (6) Pneumonia: Qualifiers: Laterality: bilateral Lung location: unspecified part of lung Pneumonia type: due to unspecified organism Qualified Code(s): J18.9 - Pneumonia, unspecified organism <LACEY Ayala - Last Filed: 05/17/21 12:36> Code(s): J18.9 - Pneumonia, unspecified organism <LACEY Ayala - Last Filed: 05/17/21 12:36> Status: Acute <LACEY Ayala - Last Filed: 05/17/21 12:36> Assessment and Plan: * Patient discharged with Levaquin completed course, discharge * Blood culture pending preliminary NGTD * Did not discharge patient with antibiotics if culture grows we will call in a prescription <LACEY Ayala - Last Filed: 05/17/21 12:36> (7) CHF (congestive heart failure): Qualifiers: Heart failure chronicity: chronic Heart failure type: combined systolic and diastolic Qualified Code(s): I50.42 - Chronic combined systolic (congestive) and diastolic (congestive) heart failure <SATURNINO Ayala-C - Last Filed: 05/17/21 12:36>
--- NOTE | 2021-05-17 12:26 | PM.DS ---
DS: Admitting Diagnosis Discharge Date 05/17/2021 <Kirk DesaiLACEY - Last Filed: 05/17/21 12:36> Admitting Diagnosis PE, chf exacerbation <Kirk EucedaLACEY Lares - Last Filed: 05/17/21 12:36> DS: Discharge Diagnosis Discharge Diagnosis (1) Pulmonary embolism: Qualifiers: Acute cor pulmonale presence: without acute cor pulmonale Chronicity: acute Pulmonary embolism type: unspecified Qualified Code(s): I26.99 - Other pulmonary embolism without acute cor pulmonale <Kirk EucedaKARY LaresC - Last Filed: 05/17/21 12:36> Code(s): I26.99 - Other pulmonary embolism without acute cor pulmonale <Ramonricky KinseyLACEY Lares - Last Filed: 05/17/21 12:36> Status: Acute <Kirk EucedaLACEY Lares - Last Filed: 05/17/21 12:36> Assessment and Plan: CTA indicates PE in the left lower Patient currently on warfarin INR 1.9>1.6>2.3 Continue warfarin <Ramonricky KinseyLACEY Lares - Last Filed: 05/17/21 12:36> (2) Acute exacerbation of chronic obstructive airways disease: Code(s): J44.1 - Chronic obstructive pulmonary disease with (acute) exacerbation <Krik EucedaLACEY Lares - Last Filed: 05/17/21 12:36> Status: Acute <LACEY Ayala - Last Filed: 05/17/21 12:36> Assessment and Plan: Worsened by PE vs CHF Continue albuterol and Solu-Medrol <RamonSATURNINO Wagner-C - Last Filed: 05/17/21 12:36> (3) Gout: Code(s): M10.9 - Gout, unspecified <LACEY Ayala - Last Filed: 05/17/21 12:36> Status: Acute <LACEY Ayala - Last Filed: 05/17/21 12:36> Assessment and Plan: Continue allopurinol <LACEY Ayala - Last Filed: 05/17/21 12:36> (4) GERD (gastroesophageal reflux disease): Code(s): K21.9 - Gastro-esophageal reflux disease without esophagitis <LACEY Ayala - Last Filed: 05/17/21 12:36> Status: Acute <LACEY Ayala - Last Filed: 05/17/21 12:36> Assessment and Plan: Continue pantoprazole <LACEY Ayala - Last Filed: 05/17/21 12:36> (5) Atrial fibrillation with RVR: Code(s): I48.91 - Unspecified atrial fibrillation <LACEY Ayala - Last Filed: 05/17/21 12:36> Status: Acute <LACEY Ayala - Last Filed: 05/17/21 12:36> Assessment and Plan: Controlled Continue telemetry Continue warfarin along with metoprolol <LACEY Ayala - Last Filed: 05/17/21 12:36> (6) Pneumonia: Qualifiers: Laterality: bilateral Lung location: unspecified part of lung Pneumonia type: due to unspecified organism Qualified Code(s): J18.9 - Pneumonia, unspecified organism <LACEY Ayala - Last Filed: 05/17/21 12:36> Code(s): J18.9 - Pneumonia, unspecified organism <LACEY Ayala - Last Filed: 05/17/21 12:36> Status: Acute <LACEY Ayala - Last Filed: 05/17/21 12:36> Assessment and Plan: Patient discharged with Levaquin completed course, discharge Blood culture pending preliminary NGTD Did not discharge patient with antibiotics if culture grows we will call in a prescription <LAECY Ayala - Last Filed: 05/17/21 12:36> (7) CHF (congestive heart failure): Qualifiers: Heart failure chronicity: chronic Heart failure type: combined systolic and diastolic Qualified Code(s): I50.42 - Chronic combined systolic (congestive) and diastolic (congestive) heart failure <LACEY Ayala - Last Filed: 05/17/21 12:36> Code(s): I50.9 - Heart failure, unspecified <LACEY Ayala - Last Filed: 05/17/21 12:36> Status: Acute <LACEY Ayala - Last Filed: 05/17/21 12:36> Assessment and Plan: BNP 3494>[id number]>6911 80 mg of Lasix given in ED we will continue 40 mEq twice daily daily weight and in
--- NOTE | 2021-05-20 10:52 | PC.NURSE ---
Pt states he received and understood his discharge instructions. Pt has no other comments.
== END 2021-05-17 12:05 | disposition home or self-care (01) | DRG 175 ==
LOC: CHSED 11:26 → CHS2ND 11:27
PROVIDERS: Nurse Practitioner; Admitting Provider Emergency Medicine; Emergency Provider Emergency Medicine; PCP Internal Medicine; Visit Provider Emergency Medicine
DX: I26.99 Other pulmonary embolism without acute cor pulmonale (principal); J18.9 Pneumonia, unspecified organism; J44.0 Chronic obstructive pulmonary disease with (acute) lower respiratory infection; J44.1 Chronic obstructive pulmonary disease with (acute) exacerbation; I50.42 Chronic combined systolic (congestive) and diastolic (congestive) heart failure; I25.10 Atherosclerotic heart disease of native coronary artery without angina pectoris; E78.5 Hyperlipidemia, unspecified; K21.9 Gastro-esophageal reflux disease without esophagitis; M10.9 Gout, unspecified; Z79.01 Long term (current) use of anticoagulants; Z95.810 Presence of automatic (implantable) cardiac defibrillator; Z87.891 Personal history of nicotine dependence
CPT/HCPCS: 36415; 36600; 71045; 71275; 80053; 82805; 83735; 83880; 84484; 85025; 85027; 85380; 85610; 85730; 87040; 93005; 94640; 96372; 96374; 96375; 96376; 99285; A9270; C9803; G0378; J1650; J1940; J2930; Q9967; U0003; U0005

== ENCOUNTER 2021-05-20 12:42 | Outpatient (CLI) | payer MEDICARE, SELFPAY ==
[2021-05-20 13:15] VITALS: PULSE 84; O2SAT 98
[2021-05-20 13:21] VITALS: PULSE 110; O2SAT 95
--- NOTE | 2021-05-20 13:44 | HOMEO2EVAL ---
Evaluation was performed at [facility] Home Oxygen Evaluation RC: Home Oxygen (O2) Evaluation Start: 05/20/21 13:37 Freq: Status: Active Protocol: RPE Activity Type Activity Date Activity User E-Sign Co-Sign Detail Recorded Client Recorded Date Recorded By Document 05/20/21 13:15 RONDA [id number] 05/20/21 13:44 SJB Document 05/20/21 13:21 SJB [id number] 05/20/21 13:44 SJB 05/20/21 05/20/21 13:15 13:21 Home O2 Evaluation Test Phase Resting Exercise Oxygen Delivery Room Air Room Air Pulse Oximetry (90-100 %) 98 95 Pulse Rate (60-100 beats/min) 84 110 H Activity Tolerance Fair Rating of Perceived Dyspnea (PD) +2 Mild, Some Difficulty, Noticeable to the Observer Rate of Perceived Exertion (PE) 12 Ambulation Distance (feet) 225 Ambulation Distance (meters) 68.57 Home Oxygen Evaluation Comments Will begin walk Pt walked on room air pushing wheelchair. Walked approx 225 ft with Sp02 at 95% and above and HR up to 110. Reason for stopping was due to leg weakness, no complaints of SOB. Tolerated fairly well. Treatment Charges O2 Evaluation - Outpatient
== END 2021-05-20 12:43 | disposition home or self-care (01) ==
LOC: CHSCARD 12:43
PROVIDERS: PCP Internal Medicine; Visit Provider Internal Medicine
DX: J44.9 Chronic obstructive pulmonary disease, unspecified (principal); I50.9 Heart failure, unspecified; R09.02 Hypoxemia
CPT/HCPCS: 94060; 94618; 94726; 94729

== ENCOUNTER 2021-05-22 10:23 | Outpatient (CLI) | payer MEDICARE, SELFPAY ==
[2021-05-22 10:50] LABS: Basophils Absolute Auto 0.02 K/mm3 (0.00-0.10); Basophils Percent Auto 0.2 % (0.0-1.0); Eosinophils Absolute Auto 0.15 K/mm3 (0.02-0.50); Eosinophils Percent Auto 1.8 % (1.0-6.0); Hematocrit 39.8 % (37.0-46.0); Hemoglobin 12.7 g/dL (12.4-15.3); Immature Granulocyte Absolute 0.09 K/mm3 (0.00-0.00); Immature Granulocyte Percent A 1.1 % (0.0-0.0); Lymphocytes Absolute Auto 0.72 K/mm3 (1.10-4.50); Lymphocytes Percent Auto 8.7 % (18.0-42.0); Mean Corpuscular HGB Conc 31.9 g/dL (32.0-36.0); Mean Corpuscular Volume 100.3 fL (78.0-102.0); Monocytes Absolute Auto 0.84 K/mm3 (0.10-0.90); Monocytes Percent Auto 10.1 % (2.0-11.0); Neutrophils Absolute Auto 6.5 K/mm3 (1.7-7.2); Neutrophils Percent Auto 78.1 % (50.0-70.0); Platelet Count Result 232 K/mm3 (150-420); Red Blood Count 3.97 M/mm3 (4.70-6.10); Red Cell Distribution Width 14.9 % (11.6-14.4); White Blood Count 8.3 K/mm3 (4.8-10.8)
[2021-05-22 11:15] LABS: INR 4.2; Prothrombin Time 41.9 Seconds (9.50-12.10)
[2021-05-22 11:26] LABS: Alanine Aminotransferase 89 U/L (16-63); Alkaline Phosphatase 78 U/L (46-116); Anion Gap 5 mmol/L (8-16); Aspartate Amino Transferase 51 U/L (15-37); Bilirubin,Total 0.5 mg/dL (0.00-1.00); Blood Urea Nitrogen 36 mg/dL (7-18); Calcium 9.3 mg/dL (8.5-10.1); Carbon Dioxide 32 mmol/L (21-32); Chloride 103 mmol/L (98-108); Estimated Glomerular Filt Rate 58; Glucose 138 mg/dL (70-99); Magnesium 2.3 mg/dL (1.8-2.4); NT Pro B Type Natriuretic Pept 3261 pg/mL (0-125); Osmolality Calculated 300 mOsm/kg (285-295); Potassium 3.7 mmol/L (3.5-5.1); Sodium 140 mmol/L (136-145); Total Protein 6.1 g/dL (6.4-8.2)
== END 2021-05-22 10:24 | disposition home or self-care (01) ==
PROVIDERS: PCP Internal Medicine; Visit Provider Internal Medicine
DX: I50.9 Heart failure, unspecified (principal); Z79.01 Long term (current) use of anticoagulants
CPT/HCPCS: 36415; 80053; 83735; 83880; 85025; 85610

== ENCOUNTER 2021-06-01 09:12 | Outpatient (CLI) | payer MEDICARE, SELFPAY ==
[2021-06-01 09:26] LABS: Basophils Absolute Auto 0.04 K/mm3 (0.00-0.10); Basophils Percent Auto 0.7 % (0.0-1.0); Eosinophils Absolute Auto 0.28 K/mm3 (0.02-0.50); Eosinophils Percent Auto 4.9 % (1.0-6.0); Hematocrit 31.8 % (37.0-46.0); Hemoglobin 10.2 g/dL (12.4-15.3); Immature Granulocyte Absolute 0.02 K/mm3 (0.00-0.00); Immature Granulocyte Percent A 0.3 % (0.0-0.0); Lymphocytes Absolute Auto 0.93 K/mm3 (1.10-4.50); Lymphocytes Percent Auto 16.1 % (18.0-42.0); Mean Corpuscular HGB Conc 32.1 g/dL (32.0-36.0); Mean Corpuscular Hemoglobin 31.9 pg (27.0-31.0); Mean Corpuscular Volume 99.4 fL (78.0-102.0); Mean Platelet Volume 11.3 fl (8.7-11.0); Monocytes Absolute Auto 0.63 K/mm3 (0.10-0.90); Monocytes Percent Auto 10.9 % (2.0-11.0); Neutrophils Absolute Auto 3.9 K/mm3 (1.7-7.2); Neutrophils Percent Auto 67.1 % (50.0-70.0); Platelet Count Result 131 K/mm3 (150-420); Red Cell Distribution Width 14.7 % (11.6-14.4); White Blood Count 5.8 K/mm3 (4.8-10.8)
[2021-06-01 09:30] VITALS: BMI 34.6
[2021-06-01 09:31] VITALS: BP 125/66; PULSE 68; RESP 14
[2021-06-01] MEDS: CYANOCOBALAMIN INJ 1,000 MCG/ML VIAL 1000 MCG IM (09:31)
[2021-06-01 09:39] LABS: INR 1.5; Prothrombin Time 15.6 Seconds (9.50-12.10)
--- NOTE | 2021-06-01 09:39 | PC.NURSE ---
Patient here for B12 monthly injection. No concerns voiced. Vitamin B12 administered see JUN. Tolerated well. Safe exit of hospital. Will return Jun 30, 2021 for next one.
[2021-06-01 10:26] LABS: Alanine Aminotransferase 36 U/L (16-63); Alkaline Phosphatase 95 U/L (46-116); Anion Gap 7 mmol/L (8-16); Aspartate Amino Transferase 19 U/L (15-37); Bilirubin,Total 0.5 mg/dL (0.00-1.00); Blood Urea Nitrogen 30 mg/dL (7-18); Calcium 8.4 mg/dL (8.5-10.1); Carbon Dioxide 30 mmol/L (21-32); Chloride 103 mmol/L (98-108); Estimated CRCL calculation 51 ml/min; Estimated Glomerular Filt Rate 54; Glucose 115 mg/dL (70-99); NT Pro B Type Natriuretic Pept 4130 pg/mL (0-125); Osmolality Calculated 297 mOsm/kg (285-295); Potassium 4.3 mmol/L (3.5-5.1); Sodium 140 mmol/L (136-145)
[2021-06-03 11:24] LABS: Hepatitis A Antibody IgM Nonreactive; Hepatitis B Core Antibody Nonreactive (Nonreactive); Hepatitis B Surface Antigen Nonreactive (Nonreactive); Hepatitis C Signal to Cutoff 0.01 ratio (<1.00); Hepatitis C Virus Antibody Nonreactive (Nonreactive)
[2021-06-05 20:57] LABS: Alpha Fetoprotein Tumor Marker 2.8 ng/mL (<6.1)
== END 2021-06-01 09:13 | disposition home or self-care (01) ==
LOC: CHSTREATRM 09:13
PROVIDERS: PCP Internal Medicine; Visit Provider Specialist
DX: I50.9 Heart failure, unspecified (principal); D64.9 Anemia, unspecified; R94.5 Abnormal results of liver function studies; Z79.01 Long term (current) use of anticoagulants; E53.8 Deficiency of other specified B group vitamins; I48.19 Other persistent atrial fibrillation; I26.99 Other pulmonary embolism without acute cor pulmonale; I48.91 Unspecified atrial fibrillation; E78.2 Mixed hyperlipidemia
CPT/HCPCS: 36415; 80053; 80074; 82105; 83880; 85025; 85610; 96372; J3420

== ENCOUNTER 2021-06-26 10:26 | Outpatient (RCR) | payer MEDICARE, SELFPAY ==
[2021-05-11 11:56] LABS: INR 1.8; Prothrombin Time 18.5 Seconds (9.50-12.10)
[2021-05-25 11:54] LABS: INR 2.5; Prothrombin Time 25.5 Seconds (9.50-12.10)
[2021-06-08 11:28] LABS: Prothrombin Time 30.7 Seconds (9.50-12.10)
[2021-06-15 11:05] LABS: Prothrombin Time 30.5 Seconds (9.50-12.10)
[2021-06-22 12:14] LABS: INR 4.4; Prothrombin Time 44.1 Seconds (9.50-12.10)
[2021-06-26 10:50] LABS: INR 3.4; Prothrombin Time 34.5 Seconds (9.50-12.10)
== END 2021-08-09 23:59 | disposition home or self-care (01) ==
LOC: CHSLAB 10:26
PROVIDERS: PCP Internal Medicine; Visit Provider Specialist
DX: Z79.01 Long term (current) use of anticoagulants (principal); I48.19 Other persistent atrial fibrillation
CPT/HCPCS: 36415; 85610

== ENCOUNTER 2021-07-03 11:13 | Outpatient (CLI) | payer MEDICARE, SELFPAY ==
[2021-07-03] MEDS: CYANOCOBALAMIN INJ 1,000 MCG/ML VIAL 1000 MCG IM (11:30)
[2021-07-03 12:05] LABS: INR 4.4
== END 2021-07-03 11:14 | disposition home or self-care (01) ==
PROVIDERS: PCP Internal Medicine; Visit Provider Specialist
DX: E53.8 Deficiency of other specified B group vitamins (principal); I48.19 Other persistent atrial fibrillation; Z79.01 Long term (current) use of anticoagulants
CPT/HCPCS: 36415; 85610; 96372; J3420

== ENCOUNTER 2021-07-21 10:38 | Outpatient (CLI) | payer MEDICARE, SELFPAY ==
--- NOTE | 2021-07-21 11:13 | ECG_ITS ---
Measurements Intervals [place] Rate: 90 P: 65 VA: 126 QRS: 153 QRSD: 161 T: -15 QT: 406 QTc: 499 Interpretive Statements ELECTRONIC VENTRICULAR PACEMAKER PREMATURE VENTRICULAR CONTRACTIONS ATYPICAL EKG COMPARED TO ECG 05/15/2021 05:50:33 NO SIGNIFICANT CHANGES Electronically Signed On 07-21-2021 17:07:48 CDT by Juanjo Sanchez M.D.
[2021-07-21 11:39] LABS: Anion Gap 8 mmol/L (8-16); Blood Urea Nitrogen 42 mg/dL (7-18); Calcium 9.2 mg/dL (8.5-10.1); Carbon Dioxide 29 mmol/L (21-32); Chloride 99 mmol/L (98-108); Estimated Glomerular Filt Rate 56; Glucose 132 mg/dL (70-99); Magnesium 1.6 mg/dL (1.8-2.4); Osmolality Calculated 294 mOsm/kg (285-295); Potassium 3.9 mmol/L (3.5-5.1); Sodium 136 mmol/L (136-145)
== END 2021-07-21 10:39 | disposition home or self-care (01) ==
LOC: CHSLAB 10:42
PROVIDERS: PCP Internal Medicine; Visit Provider Specialist
DX: I50.23 Acute on chronic systolic (congestive) heart failure (principal); I48.19 Other persistent atrial fibrillation; I25.5 Ischemic cardiomyopathy
CPT/HCPCS: 36415; 80048; 83735; 93005

== ENCOUNTER 2021-08-04 09:15 | Outpatient (CLI) | payer MEDICARE, SELFPAY ==
[2021-08-04 09:32] LABS: Basophils Absolute Auto 0.02 K/mm3 (0.00-0.10); Basophils Percent Auto 0.4 % (0.0-1.0); Eosinophils Absolute Auto 0.39 K/mm3 (0.02-0.50); Eosinophils Percent Auto 7.4 % (1.0-6.0); Hematocrit 32.6 % (37.0-46.0); Hemoglobin 10.6 g/dL (12.4-15.3); Immature Granulocyte Absolute 0.02 K/mm3 (0.00-0.00); Immature Granulocyte Percent A 0.4 % (0.0-0.0); Lymphocytes Absolute Auto 0.93 K/mm3 (1.10-4.50); Lymphocytes Percent Auto 17.7 % (18.0-42.0); Mean Corpuscular HGB Conc 32.5 g/dL (32.0-36.0); Mean Corpuscular Hemoglobin 32.1 pg (27.0-31.0); Mean Corpuscular Volume 98.8 fL (78.0-102.0); Mean Platelet Volume 10.7 fl (8.7-11.0); Monocytes Absolute Auto 0.53 K/mm3 (0.10-0.90); Monocytes Percent Auto 10.1 % (2.0-11.0); Neutrophils Absolute Auto 3.4 K/mm3 (1.7-7.2); Platelet Count Result 184 K/mm3 (150-420); Red Cell Distribution Width 14.5 % (11.6-14.4); White Blood Count 5.3 K/mm3 (4.8-10.8)
[2021-08-04 09:43] LABS: Hemoglobin A1C 5.4 % (<5.7)
[2021-08-04 09:45] VITALS: BMI 34.5
[2021-08-04 09:46] VITALS: BP 116/64; PULSE 85; RESP 18; TEMP 36; O2SAT 96
[2021-08-04] MEDS: CYANOCOBALAMIN INJ 1,000 MCG/ML VIAL 1000 MCG IM (09:47)
[2021-08-04 09:49] LABS: INR 1.2; Prothrombin Time 12.9 Seconds (9.50-12.10)
--- NOTE | 2021-08-04 09:52 | PC.NURSE ---
Patient here for monthly Vitamin B12 injection. No concerns voiced. B12 injection administered. SEE MAR. Tolerated Well. Safe exit of hospital. Will return September 08, 2021 at 0930 for next injection.
[2021-08-04 11:11] LABS: Alanine Aminotransferase 16 U/L (16-63); Albumin Level 3.4 g/dL (3.4-5.0); Alkaline Phosphatase 91 U/L (46-116); Anion Gap 11 mmol/L (8-16); Aspartate Amino Transferase 16 U/L (15-37); Bilirubin,Total 0.8 mg/dL (0.00-1.00); Blood Urea Nitrogen 39 mg/dL (7-18); Calcium 9.4 mg/dL (8.5-10.1); Carbon Dioxide 26 mmol/L (21-32); Chloride 101 mmol/L (98-108); Estimated CRCL calculation 48 ml/min; Estimated Glomerular Filt Rate 50; Glucose 111 mg/dL (70-99); Magnesium 2.1 mg/dL (1.8-2.4); NT Pro B Type Natriuretic Pept 5121 pg/mL (0-125); Osmolality Calculated 296 mOsm/kg (285-295); Sodium 138 mmol/L (136-145); Total Protein 6.7 g/dL (6.4-8.2)
[2021-08-04 12:00] LABS: Add Urine Microscopic? NO; Appearance Urine Clear (Clear); Bilirubin Urine Negative (Negative); Blood Urine Negative (Negative); Color Urine Yellow (Yellow); Glucose Urine UA Negative (Negative); Ketones Urine Negative (Negative); Leukocyte Esterase Ur Negative (Negative); Nitrate Urine Negative (Negative); Protein Urine Negative (Negative); Specific Grav Ur <= 1.005 (1.010-1.020); Urobilinogen Urine 0.2 mg/dL (0.2-1.0)
== END 2021-08-04 09:16 | disposition home or self-care (01) ==
LOC: CHSLAB 09:18 → CHSTREATRM 09:28
PROVIDERS: PCP Internal Medicine; Visit Provider Specialist
DX: E53.8 Deficiency of other specified B group vitamins (principal); I50.9 Heart failure, unspecified; E11.9 Type 2 diabetes mellitus without complications; I48.19 Other persistent atrial fibrillation; Z79.01 Long term (current) use of anticoagulants
CPT/HCPCS: 36415; 80053; 81003; 83036; 83735; 83880; 85025; 85610; 96372

== ENCOUNTER 2021-09-11 10:03 | Outpatient (CLI) | payer MEDICARE, SELFPAY ==
[2021-09-11 10:20] VITALS: BMI 34.7
[2021-09-11 10:21] VITALS: BP 132/63; PULSE 68; RESP 16; TEMP 36.8; O2SAT 96
[2021-09-11] MEDS: CYANOCOBALAMIN INJ 1,000 MCG/ML VIAL 1000 MCG IM (10:28)
--- NOTE | 2021-09-11 10:30 | PC.NURSE ---
Patient here for monthly B12 injection. No concerns voiced. Vitamin B12 injection administered. SEE MAR. Tolerated well. Safe exit of hospital. Will return October 13 2021 Tue at 1000.
== END 2021-09-11 10:04 | disposition home or self-care (01) ==
LOC: CHSTREATRM 10:07
PROVIDERS: PCP Internal Medicine; Visit Provider Internal Medicine
DX: E53.8 Deficiency of other specified B group vitamins (principal)
CPT/HCPCS: 96372; J3420

== ENCOUNTER 2021-10-27 10:50 | Outpatient (CLI) | payer MEDICARE, SELFPAY ==
[2021-10-27] MEDS: CYANOCOBALAMIN INJ 1,000 MCG/ML VIAL 1000 MCG IM (11:18)
--- NOTE | 2021-10-27 11:18 | PC.NURSE ---
Pt to room 226 per wc. A&Ox3. Has no complaints or concerns. B12 inj given as ordered. Pt tolerated well. Site without redness, edema or drainage. Bandaid applied. Pt discharged to home with spouse per wc.
== END 2021-10-27 10:51 | disposition home or self-care (01) ==
LOC: CHSTREATRM 10:51
PROVIDERS: PCP Internal Medicine; Visit Provider Internal Medicine
DX: E53.8 Deficiency of other specified B group vitamins (principal)
CPT/HCPCS: 96372; J3420

== ENCOUNTER 2021-11-04 10:20 | Outpatient (RCR) | payer MEDICARE, SELFPAY ==
[2021-08-11 11:02] LABS: INR 1.6; Prothrombin Time 16.3 Seconds (9.50-12.10)
[2021-08-24 11:31] LABS: INR 3.5; Prothrombin Time 35.1 Seconds (9.50-12.10)
[2021-08-28 10:55] LABS: INR 3.7; Prothrombin Time 36.9 Seconds (9.50-12.10)
[2021-09-04 12:42] LABS: Prothrombin Time 20.6 Seconds (9.50-12.10)
[2021-09-11 10:42] LABS: INR 1.3; Prothrombin Time 13.9 Seconds (9.50-12.10)
[2021-09-18 11:13] LABS: INR 1.4; Prothrombin Time 14.5 Seconds (9.50-12.10)
[2021-09-24 09:57] LABS: INR 1.7; Prothrombin Time 17.3 Seconds (9.50-12.10)
[2021-10-08 10:52] LABS: INR 1.9; Prothrombin Time 19.4 Seconds (9.50-12.10)
[2021-10-22 12:09] LABS: INR 2.6
[2021-11-04 10:42] LABS: INR 2.6; Prothrombin Time 26.4 Seconds (9.50-12.10)
== END 2021-11-09 23:59 | disposition home or self-care (01) ==
LOC: CHSLAB 10:20
PROVIDERS: PCP Internal Medicine; Visit Provider Specialist
DX: I48.19 Other persistent atrial fibrillation (principal); Z79.01 Long term (current) use of anticoagulants
CPT/HCPCS: 36415; 85610; 96372; J3420

== ENCOUNTER 2021-11-26 10:24 | Outpatient (CLI) | payer MEDICARE, SELFPAY ==
[2021-11-26] MEDS: CYANOCOBALAMIN INJ 1,000 MCG/ML VIAL 1000 MCG IM (10:42)
[2021-11-26 10:45] VITALS: BP 112/64; PULSE 88; RESP 18; O2SAT 95
[2021-11-26 10:46] VITALS: BMI 34.9
--- NOTE | 2021-11-26 10:46 | PC.NURSE ---
Patient here for monthly B12 injection. Education given. No concerns voiced. Vitamin B12 injection administered see JUN. Tolerated well. Will return 2021 at 1000. Safe exit of hospital.
[2021-11-26 10:59] LABS: INR 1.9; Prothrombin Time 19.8 Seconds (9.50-12.10)
== END 2021-11-26 10:25 | disposition home or self-care (01) ==
LOC: CHSTREATRM 10:27
PROVIDERS: PCP Internal Medicine; Visit Provider Specialist
DX: D53.8 Other specified nutritional anemias (principal); I48.19 Other persistent atrial fibrillation; Z79.01 Long term (current) use of anticoagulants
CPT/HCPCS: 36415; 85610; 96372; J3420

== ENCOUNTER 2021-12-28 11:25 | Outpatient (CLI) | payer MEDICARE, SELFPAY ==
[2021-12-28] MEDS: CYANOCOBALAMIN INJ 1,000 MCG/ML VIAL 1000 MCG IM (11:30)
[2021-12-28 11:56] LABS: INR 1.7; Prothrombin Time 17.9 Seconds (9.50-12.10)
[2021-12-28 12:33] VITALS: BP 121/66; PULSE 68; RESP 14; TEMP 36.3; O2SAT 97
--- NOTE | 2021-12-28 12:36 | PC.NURSE ---
Patient here for monthly B12 injection. Education given. No concerns voiced. B12 injection administered. SEE MAR Tolerated well. Safe exit of hospital. Will return 02/01/22 at 1000.
[2021-12-28 12:38] VITALS: BMI 34.9
== END 2021-12-28 11:26 | disposition home or self-care (01) ==
LOC: CHSTREATRM 11:31
PROVIDERS: PCP Internal Medicine; Visit Provider Specialist
DX: E53.8 Deficiency of other specified B group vitamins (principal); I48.19 Other persistent atrial fibrillation; Z79.01 Long term (current) use of anticoagulants
CPT/HCPCS: 36415; 85610; 96372; J3420

== ENCOUNTER 2022-01-20 10:42 | Outpatient (CLI) | payer MEDICARE, SELFPAY ==
[2022-01-20 11:12] LABS: INR 1.8; Prothrombin Time 18.8 Seconds (9.50-12.10)
== END 2022-01-20 10:43 | disposition home or self-care (01) ==
LOC: CHSLAB 10:46
PROVIDERS: PCP Internal Medicine; Visit Provider Specialist
DX: I48.19 Other persistent atrial fibrillation (principal); Z79.01 Long term (current) use of anticoagulants; E53.8 Deficiency of other specified B group vitamins
CPT/HCPCS: 36415; 85610

== ENCOUNTER 2022-01-27 10:03 | Outpatient (CLI) | payer MEDICARE, SELFPAY ==
[2022-01-27 10:29] LABS: INR 1.9; Prothrombin Time 19.6 Seconds (9.50-12.10)
== END 2022-01-27 10:04 | disposition home or self-care (01) ==
LOC: CHSLAB 10:07
PROVIDERS: PCP Internal Medicine; Visit Provider Specialist
DX: I48.19 Other persistent atrial fibrillation (principal); Z79.01 Long term (current) use of anticoagulants
CPT/HCPCS: 36415; 85610

== ENCOUNTER 2022-02-04 09:50 | Outpatient (CLI) | payer MEDICARE, SELFPAY ==
[2022-02-04 10:27] LABS: INR 1.8; Prothrombin Time 18.6 Seconds (9.50-12.10)
[2022-02-04] MEDS: CYANOCOBALAMIN INJ 1,000 MCG/ML VIAL 1000 MCG IM (10:32)
[2022-02-04 10:36] VITALS: BMI 41.6
[2022-02-04 10:37] VITALS: BMI 34.5
[2022-02-04 10:38] VITALS: BP 116/70; PULSE 68; RESP 16; TEMP 36.8; O2SAT 96
--- NOTE | 2022-02-04 10:39 | PC.NURSE ---
Patient here for monthly B12 injection. No concerns voiced. IM B12 injection administered. SEE MAR. Tolerated well. Will return Mar 11, 2022 at 1000 for next month's. Safe exit of hospital.
== END 2022-02-04 09:51 | disposition home or self-care (01) ==
LOC: CHSLAB 09:52 → CHSTREATRM 10:05
PROVIDERS: Specialist; PCP Internal Medicine; Visit Provider Internal Medicine
DX: E53.8 Deficiency of other specified B group vitamins (principal); I48.19 Other persistent atrial fibrillation; Z79.01 Long term (current) use of anticoagulants
CPT/HCPCS: 36415; 85610; 96372

== ENCOUNTER 2022-03-04 09:49 | Outpatient (RCR) | payer MEDICARE, SELFPAY ==
[2021-12-14 11:14] LABS: Prothrombin Time 20.5 Seconds (9.50-12.10)
[2022-01-13 10:36] LABS: INR 1.6; Prothrombin Time 16.8 Seconds (9.50-12.10)
[2022-02-18 10:13] LABS: INR 2.4; Prothrombin Time 24.4 Seconds (9.50-12.10)
[2022-03-04 10:11] LABS: Prothrombin Time 20.7 Seconds (9.50-12.10)
== END 2022-03-14 23:59 | disposition home or self-care (01) ==
LOC: CHSLAB 09:49
PROVIDERS: PCP Internal Medicine; Visit Provider Specialist
DX: I48.19 Other persistent atrial fibrillation (principal); Z79.01 Long term (current) use of anticoagulants
CPT/HCPCS: 36415; 85610

== ENCOUNTER 2022-03-12 09:55 | Outpatient (CLI) | payer MEDICARE, SELFPAY ==
[2022-03-12 10:53] VITALS: BP 140/61; PULSE 72; RESP 14; TEMP 36.3; O2SAT 96; BMI 34.9
[2022-03-12] MEDS: CYANOCOBALAMIN INJ 1,000 MCG/ML VIAL 1000 MCG IM (10:54)
--- NOTE | 2022-03-12 10:55 | PC.NURSE ---
Patient here for monthly B12 injection. No concerns voiced. Vitamin B12 injection administered. SEE MAR. Tolerated well. Safe exit of hospital. Will return 2021 at 1000.
== END 2022-03-12 09:56 | disposition home or self-care (01) ==
LOC: CHSTREATRM 09:57
PROVIDERS: PCP Internal Medicine; Visit Provider Internal Medicine
DX: E53.8 Deficiency of other specified B group vitamins (principal)
CPT/HCPCS: 96372; J3420

== ENCOUNTER 2022-04-12 10:03 | Outpatient (CLI) | payer MEDICARE, SELFPAY ==
--- NOTE | ~2022-04-12 | US_ITS ---
EXAMINATION: US carotid duplex BI DATE: 04/12/2022 11:24 INDICATION: Bilateral carotid bruits TECHNIQUE: Grayscale, color Doppler, and pulsed Doppler images of the cervical carotid arteries were obtained. The degree of vessel stenosis is placed in one of the following categories: normal, <50%, 5 0-69%, >=70% but less than near-occlusion, near-occlusion, or total occlusion. Note that percent sten osis relative to normal distal artery lumen diameter is indirectly measured from velocity measurement s as described by Reilly, et al. Radiology 2003; [id number]:[id number]. Notes: Normal: Peak systolic velocity <125 centimeters/sec and no plaque <50%. Peak systolic velocity <125 ( EDV <40; ICA/CCA PSV ratio <2.0; used these factors only a tandem lesions or low cardiac output or co ntralateral disease) 50-69 %: PSV 125-230 (EDV 40-100; ratio 2-4) >= 70% but less than near occlusion: PSV greater than 230 (EDV > 100; ratio> 4.0) Near Occlusion: PSV that is variable; markedly narrowed lumen Occlusion: Absent flow on color/spectral Doppler and no lumen on chu scale. COMPARISON: None. FINDINGS: RIGHT: The right common carotid artery (CCA) peak systolic velocity (PSV) is 51 cm/s. The right internal car otid artery (ICA) PSV is 240 cm/s. The right ICA end-diastolic velocity (EDV) is 77 cm/s. The right I CA/CCA PSV ratio is 4.7. The external carotid artery (ECA) PSV is 203 cm/s. There is antegrade flow i n the right vertebral artery. LEFT: The left CCA PSV is 67 cm/s. The left ICA PSV is 136 cm/s. The left ICA EDV is 24 cm/s. The left ICA/ CCA PSV ratio is 2. The ECA PSV is 113 cm/s. There is antegrade flow in the left vertebral artery. IMPRESSION: 1. Greater than or equal to 70% stenosis in the right internal carotid artery by sonographic criteria . 2. 50-69% stenosis in the left internal carotid artery by sonographic criteria. Reviewed, dictated and finalized at location B. [employer] IMPRESSION: 1. Greater than or equal to 70% stenosis in the right internal carotid artery b y sonographic criteria. 2. 50-69% stenosis in the left internal carotid artery by sonographic criteria.
[2022-04-12 10:47] LABS: INR 1.8; Prothrombin Time 18.5 Seconds (9.50-12.10)
[2022-04-12] MEDS: CYANOCOBALAMIN INJ 1,000 MCG/ML VIAL 1000 MCG IM (10:47)
[2022-04-12 10:55] VITALS: BP 130/88; PULSE 64; RESP 18; O2SAT 96; BMI 35.2
--- NOTE | 2022-04-12 10:56 | PC.NURSE ---
Patient here for monthly B12 injection. Education given. No concerns voiced. Vitamin B12 injection administered. SEE MAR. Tolerated well. Safe exit of hospital per . Will return May at 1000.
[2022-04-12 11:01] LABS: Anion Gap 8 mmol/L (8-16); Blood Urea Nitrogen 88 mg/dL (7-18); Calcium 9.5 mg/dL (8.5-10.1); Carbon Dioxide 34 mmol/L (21-32); Chloride 96 mmol/L (98-108); Estimated CRCL calculation 28 ml/min; Estimated Glomerular Filt Rate 27; Glucose 144 mg/dL (70-99); Magnesium 1.8 mg/dL (1.8-2.4); Osmolality Calculated 315 mOsm/kg (285-295); Potassium 3.2 mmol/L (3.5-5.1); Sodium 138 mmol/L (136-145)
== END 2022-04-12 10:04 | disposition home or self-care (01) ==
LOC: CHSIMG 10:09 → CHSTREATRM 10:21
PROVIDERS: PCP Internal Medicine; Visit Provider Specialist
DX: E53.8 Deficiency of other specified B group vitamins (principal); R09.89 Other specified symptoms and signs involving the circulatory and respiratory systems; I48.0 Paroxysmal atrial fibrillation; Z79.899 Other long term (current) drug therapy; Z79.01 Long term (current) use of anticoagulants
CPT/HCPCS: 36415; 80048; 83735; 85610; 93880; 96372; J3420

== ENCOUNTER 2022-04-28 10:47 | Outpatient (CLI) | payer MEDICARE, SELFPAY ==
[2022-04-28 11:48] LABS: INR 4.1; Prothrombin Time 40.4 Seconds (9.50-12.10)
[2022-04-28 11:55] LABS: Anion Gap 11 mmol/L (8-16); Blood Urea Nitrogen 76 mg/dL (7-18); Calcium 8.9 mg/dL (8.5-10.1); Carbon Dioxide 27 mmol/L (21-32); Chloride 97 mmol/L (98-108); Estimated Glomerular Filt Rate 20; Glucose 106 mg/dL (70-99); Osmolality Calculated 302 mOsm/kg (285-295); Potassium 4.3 mmol/L (3.5-5.1); Sodium 135 mmol/L (136-145)
== END 2022-04-28 10:48 | disposition home or self-care (01) ==
PROVIDERS: PCP Internal Medicine
DX: N17.9 Acute kidney failure, unspecified (principal); E87.6 Hypokalemia; E83.42 Hypomagnesemia
CPT/HCPCS: 36415; 80048; 85610

== ENCOUNTER 2022-05-03 11:09 | Outpatient (CLI) | payer MEDICARE, SELFPAY ==
[2022-05-03 11:37] LABS: INR 2.7; Prothrombin Time 27.1 Seconds (9.50-12.10)
[2022-05-03 11:55] LABS: Anion Gap 9 mmol/L (8-16); Blood Urea Nitrogen 28 mg/dL (7-18); Calcium 9.3 mg/dL (8.5-10.1); Carbon Dioxide 24 mmol/L (21-32); Chloride 104 mmol/L (98-108); Estimated Glomerular Filt Rate 58; Glucose 96 mg/dL (70-99); Osmolality Calculated 289 mOsm/kg (285-295); Potassium 4.9 mmol/L (3.5-5.1); Sodium 137 mmol/L (136-145)
[2022-05-05 11:55] LABS: Magnesium 1.6 mg/dL (1.8-2.4)
== END 2022-05-03 11:10 | disposition home or self-care (01) ==
LOC: CHSLAB 11:12
PROVIDERS: PCP Internal Medicine; Visit Provider Internal Medicine Cardiovascular Disease
DX: I48.19 Other persistent atrial fibrillation (principal)
CPT/HCPCS: 36415; 80048; 83735; 85610

== ENCOUNTER 2022-05-17 10:57 | Outpatient (CLI) | payer MEDICARE, SELFPAY ==
[2022-05-17 11:13] VITALS: BP 112/58; PULSE 60; RESP 16; TEMP 36.6; O2SAT 97; BMI 35.2
[2022-05-17] MEDS: CYANOCOBALAMIN INJ 1,000 MCG/ML VIAL 1000 MCG IM (11:14)
--- NOTE | 2022-05-17 11:16 | PC.NURSE ---
Patient here for monthly B12 injection. No concerns voiced. B12 injection administered see JUN. Tolerated well. Will return 2022 for next one. Safe exit of hospital per wc per significant other.
== END 2022-05-17 10:58 | disposition home or self-care (01) ==
LOC: CHSLAB 11:00 → CHSTREATRM 11:01
PROVIDERS: PCP Internal Medicine; Visit Provider Internal Medicine
DX: E53.8 Deficiency of other specified B group vitamins (principal)
CPT/HCPCS: 96372; J3420

== ENCOUNTER 2022-05-24 12:32 | Outpatient (RCR) | payer MEDICARE, SELFPAY ==
[2022-03-18 10:45] LABS: INR 2.2; Prothrombin Time 22.5 Seconds (9.50-12.10)
[2022-05-10 12:27] LABS: INR 2.6; Prothrombin Time 26.5 Seconds (9.50-12.10)
[2022-05-24 13:01] LABS: INR 2.2; Prothrombin Time 22.9 Seconds (9.50-12.10)
== END 2022-06-16 23:59 | disposition home or self-care (01) ==
LOC: CHSLAB 12:32
PROVIDERS: PCP Internal Medicine; Visit Provider Specialist
DX: Z51.81 Encounter for therapeutic drug level monitoring (principal); I48.19 Other persistent atrial fibrillation; Z79.01 Long term (current) use of anticoagulants
CPT/HCPCS: 36415; 85610

== ENCOUNTER 2022-06-21 10:22 | Outpatient (CLI) | payer MEDICARE, SELFPAY ==
[2022-06-21 10:51] VITALS: BMI 34.7
[2022-06-21] MEDS: CYANOCOBALAMIN INJ 1,000 MCG/ML VIAL 1000 MCG IM (10:51)
[2022-06-21 10:52] VITALS: BP 101/63; PULSE 72; RESP 14; O2SAT 97
--- NOTE | 2022-06-21 10:53 | PC.NURSE ---
Patient here for monthly B12 injection. Voices no concerns. B12 injection administered see MAR. Tolerated well. Safe exit of hospital per wc with significant other. Will return August 23, 2022 at 1000 for next month's injection.
[2022-06-21 11:03] LABS: INR 1.9; Prothrombin Time 19.5 Seconds (9.50-12.10)
== END 2022-06-21 10:23 | disposition home or self-care (01) ==
LOC: CHSLAB 10:42 → CHSTREATRM 10:45 → CHSLAB 10:50 → CHSTREATRM 10:50
PROVIDERS: PCP Internal Medicine; Visit Provider Specialist
DX: E53.8 Deficiency of other specified B group vitamins (principal); I48.19 Other persistent atrial fibrillation
CPT/HCPCS: 36415; 85610; 96372

== ENCOUNTER 2022-07-07 11:29 | Outpatient (CLI) | payer MEDICARE, SELFPAY ==
[2022-07-07 12:35] LABS: Anion Gap 8 mmol/L (8-16); Blood Urea Nitrogen 29 mg/dL (7-18); Calcium 9.7 mg/dL (8.5-10.1); Carbon Dioxide 30 mmol/L (21-32); Chloride 104 mmol/L (98-108); Estimated Glomerular Filt Rate > 60; Glucose 101 mg/dL (70-99); Osmolality Calculated 299 mOsm/kg (285-295); Potassium 4.8 mmol/L (3.5-5.1); Sodium 142 mmol/L (136-145)
== END 2022-07-07 11:30 | disposition home or self-care (01) ==
LOC: CHSLAB 11:30
PROVIDERS: PCP Internal Medicine; Visit Provider Specialist
DX: I50.23 Acute on chronic systolic (congestive) heart failure (principal); Z79.899 Other long term (current) drug therapy
CPT/HCPCS: 36415; 80048

== ENCOUNTER 2022-08-09 10:51 | Outpatient (RCR) | payer MEDICARE, SELFPAY ==
[2022-06-28 12:15] LABS: INR 1.8; Prothrombin Time 18.4 Seconds (9.50-12.10)
[2022-08-09 11:19] LABS: INR 2.4; Prothrombin Time 24.1 Seconds (9.50-12.10)
== END 2022-09-26 23:59 | disposition home or self-care (01) ==
LOC: CHSLAB 10:51
PROVIDERS: PCP Internal Medicine; Visit Provider Specialist
DX: I48.19 Other persistent atrial fibrillation (principal)
CPT/HCPCS: 36415; 85610

== ENCOUNTER 2022-08-13 09:48 | Outpatient (CLI) | payer MEDICARE, SELFPAY ==
--- NOTE | ~2022-08-13 | XR_ITS ---
EXAMINATION: XR chest 2V DATE: 08/13/2022 10:23 INDICATION: Dyspnea. TECHNIQUE: Frontal and lateral views of the chest were obtained. COMPARISON: Chest single view 05/15/2021, chest CT 05/15/2021. FINDINGS: The patient is rotated to his left. There are small bilateral pleural effusions. There is a diffuse interstitial pattern in the lungs. There are airspace opacities in left lower lobe. No pneum othorax. Cardiomegaly is noted. Median sternotomy wires and mediastinal surgical clips are seen, like ly from prior coronary artery bypass grafting. There is a left chest pacer with leads in right atrium , right ventricle, and coronary sinus. IMPRESSION: 1. Stable diffuse lung disease, likely chronic interstitial lung disease. Superimposed pulmonary sweta a cannot be excluded. 2. Airspace opacities in left lower lobe, consistent with chronic rounded atelectasis. Superimposed p neumonia cannot be excluded. 3. Chronic small pleural effusions. 4. Cardiomegaly. Reviewed, dictated and finalized at location A. IMPRESSION: 1. Stable diffuse lung disease, likely chronic interstitial lung disease. Super imposed pulmonary edema cannot be excluded. 2. Airspace opacities in left lower lobe, consistent with chronic rounded atele ctasis. Superimposed pneumonia cannot be excluded. 3. Chronic small pleural effusions. 4. Cardiomegaly.
[2022-08-13 10:10] LABS: Basophils Absolute Auto 0.05 K/mm3 (0.00-0.10); Basophils Percent Auto 0.8 % (0.0-1.0); Eosinophils Absolute Auto 0.39 K/mm3 (0.02-0.50); Eosinophils Percent Auto 6.2 % (1.0-6.0); Hematocrit 35.9 % (37.0-46.0); Hemoglobin 11.7 g/dL (12.4-15.3); Immature Granulocyte Absolute 0.02 K/mm3 (0.00-0.00); Immature Granulocyte Percent A 0.3 % (0.0-0.0); Lymphocytes Absolute Auto 0.96 K/mm3 (1.10-4.50); Lymphocytes Percent Auto 15.3 % (18.0-42.0); Mean Corpuscular HGB Conc 32.6 g/dL (32.0-36.0); Mean Corpuscular Hemoglobin 31.8 pg (27.0-31.0); Mean Corpuscular Volume 97.6 fL (78.0-102.0); Mean Platelet Volume 10.9 fl (8.7-11.0); Monocytes Absolute Auto 0.84 K/mm3 (0.10-0.90); Monocytes Percent Auto 13.4 % (2.0-11.0); Platelet Count Result 164 K/mm3 (150-420); Red Blood Count 3.68 M/mm3 (4.70-6.10); Red Cell Distribution Width 13.3 % (11.6-14.4); White Blood Count 6.3 K/mm3 (4.8-10.8)
[2022-08-13 11:43] LABS: Hemoglobin A1C 5.4 % (<5.7)
[2022-08-13 12:03] LABS: Alanine Aminotransferase 18 U/L (16-63); Albumin Level 3.3 g/dL (3.4-5.0); Alkaline Phosphatase 96 U/L (46-116); Anion Gap 6 mmol/L (8-16); Aspartate Amino Transferase 22 U/L (15-37); Bilirubin,Total 0.5 mg/dL (0.00-1.00); Blood Urea Nitrogen 48 mg/dL (7-18); Carbon Dioxide 32 mmol/L (21-32); Chloride 98 mmol/L (98-108); Creatine Kinase 33 U/L (39-308); Estimated Glomerular Filt Rate 39; Glucose 105 mg/dL (70-99); Magnesium 2.1 mg/dL (1.8-2.4); NT Pro B Type Natriuretic Pept 4296 pg/mL (0-450); Osmolality Calculated 294 mOsm/kg (285-295); Potassium 3.6 mmol/L (3.5-5.1); Sodium 136 mmol/L (136-145); Thyroid Stimulating Hormone 1.43 uIU/mL (0.36-3.74); Total Protein 7.3 g/dL (6.4-8.2); Troponin I 20.8 ng/L (0.00-60.4)
== END 2022-08-13 09:49 | disposition home or self-care (01) ==
LOC: CHSLAB 09:50
PROVIDERS: PCP Internal Medicine; Visit Provider Internal Medicine
DX: R06.00 Dyspnea, unspecified (principal); E11.9 Type 2 diabetes mellitus without complications; I42.9 Cardiomyopathy, unspecified; J98.4 Other disorders of lung; R91.8 Other nonspecific abnormal finding of lung field; J90 Pleural effusion, not elsewhere classified; I51.7 Cardiomegaly
CPT/HCPCS: 36415; 71046; 80053; 82550; 82553; 83036; 83735; 83880; 84443; 84484; 85025

== ENCOUNTER 2022-08-13 16:55 | Emergency (ER) | payer MEDICARE, SELFPAY ==
--- NOTE | ~2022-08-13 | CT_ITS ---
EXAMINATION: CT chest abdomen pelvis wo con DATE: 08/13/2022 18:21 INDICATION: Chest and abdominal pain after fall TECHNIQUE: Transaxial computed tomographic images of the chest, abdomen, and pelvis were obtained wit hout intravenous contrast. The dose-length product (DLP) was 1816.20 mGy-cm. Automated exposure contr ol and iterative reconstruction technique were employed. COMPARISON: 05/15/2021 FINDINGS: CHEST CT: Cardiomegaly is noted. There are chronic widespread interstitial and airspace opacities throughout th e lungs with slight worsening in the right mid and lower lung zones. There is a chronic area of dense atelectasis posteriorly in the left lower lobe. Calcified coronary artery atherosclerosis is noted. There are moderate bilateral gynecomastia. There is a chronic small loculated left pleural effusion. No pneumothorax is identified. There is chronic mild mediastinal lymphadenopathy. ABDOMEN/PELVIS CT: Stones are present in the nondistended gallbladder. There appears to be nodularity of the liver surfa ce. The spleen, pancreas, and adrenal glands are normal. There is questionable choledocholithiasis al though no intrahepatic or extrahepatic biliary dilatation is seen. Cysts of the kidneys measure up to 1.5 cm on the left. There is calcified atherosclerosis of the aorta and many of the other arteries. No pathologically enlarged abdominal or pelvic lymph nodes are identified. IMPRESSION: 1. Cardiomegaly. 2. Worsened diffuse lung disease, likely chronic interstitial lung disease and pulmonary edema. 3. No acute findings of the abdomen or pelvis. 4. Possible choledocholithiasis. Reviewed, dictated and finalized at location F.
--- NOTE | ~2022-08-13 | CT_ITS ---
EXAMINATION: CT cervical spine wo con DATE: 08/13/2022 18:20 INDICATION: Head injury TECHNIQUE: Computed tomography (CT) of the cervical spine was performed without intravenous contrast. The dose-length product (DLP) was 577.88 mGy-cm. Automated exposure control and iterative reconstruc tion technique were employed. COMPARISON: None FINDINGS: There is reversal of the normal cervical lordosis. There are 2 mm of retrolisthesis of C4 o n C5. The vertebral body heights are maintained. There is severe loss of intervertebral disc space he ight from C4-5 through C6-7. The odontoid process is intact. There is multilevel moderate facet and u ncovertebral joint osteoarthritis. There is no fracture. IMPRESSION: 1. Severe cervical spondylosis without acute findings. Reviewed, dictated and finalized at location F.
--- NOTE | ~2022-08-13 | CT_ITS ---
EXAMINATION: CT brain wo con INDICATION: Head injury COMPARISON: 05/14/2014 TECHNIQUE: Standard unenhanced head CT. The dose-length product (DLP) was 1210.67 mGy-cm. The mA was adjusted according to patient size. Iterative reconstruction technique was employed. FINDINGS: Motion artifact slightly limits the examination. There is no acute intraparenchymal hemorrh age. No evidence of mass lesion. No evidence of acute infarction. 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 There is mild periventricular and subcortical hypodensity probab ly related to small vessel ischemic disease. There is mild prominence of the sulci and ventricles rel ated to cerebral atrophy. Intracranial calcified cerebral atherosclerosis is noted. There are no extr a-axial collections. There is no mass effect or midline shift. Changes in the globes are likely from ocular lens surgery. There is mild mucosal thickening of the paranasal sinuses. Multiple foci of intr avenous gas are noted in the face and near the intracranial carotid arteries. IMPRESSION: 1. No acute intracranial abnormality. 2. Age related findings. Reviewed, dictated and finalized at location F.
[2022-08-13 17:00] VITALS: BP 131/60; PULSE 80; RESP 20; TEMP 36.9; O2SAT 93
--- NOTE | 2022-08-13 17:28 | ED.GENADULT ---
HPI - General Adult General Chief complaint: Fall Stated complaint: fall etoh on board Time Seen by Provider: 08/13/22 17:13 History of Present Illness HPI narrative: 77yo man brought by EMS after witnessed fall outdoors onto [place], witnessed by who was unable to catch him. Pt heavily intoxicated, drinks several beers (9 to 12?)per day. Has lac to chin. Pt denies any pain or any complaints. Cooperative and ready to return home as soon as we are done with him. Related Data Home Medications Medication Instructions Recorded Confirmed allopurinol 100 mg tablet 100 mg PO BID 08/26/20 08/13/22 dofetilide 500 mcg capsule 500 mcg PO Q12H 08/26/20 08/13/22 (Tikosyn) ferrous fumarate 325 mg (106 mg 325 mg PO DAILY 08/26/20 08/13/22 iron) tablet gabapentin 800 mg tablet 1,600 mg PO BID 08/26/20 08/13/22 magnesium oxide 400 mg (241.3 mg 400 mg PO DAILY 08/26/20 08/13/22 magnesium) tablet (MagOx) pantoprazole 40 mg tablet,delayed 40 mg PO QAM 08/26/20 08/13/22 release pravastatin 40 mg tablet 40 mg PO HS 08/26/20 08/13/22 warfarin 3 mg tablet 3 mg PO DAILY 08/26/20 08/13/22 spironolactone 25 mg tablet 25 mg PO BID 05/03/21 08/13/22 folic acid 1 mg tablet 1 mg PO DAILY 08/13/22 08/13/22 furosemide 40 mg tablet 80 mg PO BIDWM 08/13/22 08/13/22 metoprolol succinate 25 mg 37.5 mg PO DAILY 08/13/22 08/13/22 tablet,extended release 24 hr potassium chloride 10 mEq 10 meq PO DAILY 08/13/22 08/13/22 tablet,extended release(part/cryst) (Klor-Con M) thiamine HCl (vitamin B1) 100 mg 100 mg PO DAILY 08/13/22 08/13/22 tablet warfarin 1 mg tablet 2 mg PO DAILY 08/13/22 08/13/22 Allergies Allergy/AdvReac Type Severity Reaction Status Date / Time No Known Allergies Allergy Verified 05/15/21 05:35 Review of Systems Review of Systems: All systems reviewed & are unremarkable except as noted in HPI and below Constitutional: Constitutional: Denies chills and Denies fever(s) Cardiovascular: Cardiovascular: Denies chest pain Respiratory: Respiratory: Denies dyspnea PMFSH Past Medical History Medical History Atrial fibrillation Atrial fibrillation with RVR Congestive heart failure Coronary artery disease GERD (gastroesophageal reflux disease) GERD (gastroesophageal reflux disease) Gout Hyperlipidemia Surgical History Surgical History H/O heart bypass surgery x4 Social History Social History Smoking packs per day: 3 Smoking cigarettes per day: 60.0 Years smoked: 35 Smoking pack-years: 105.00 Smoking status: Former smoker Tobacco type: cigarettes Second hand tobacco smoke exposure: Yes Smoking end date: 05/13/93 Alcohol intake: current Drinks per week: 50 Substance use: never Substance use type: does not use Last use: yesterday Spiritual care concerns: No Exam Const: General: no acute distress and alert Nutritional Appearance: well nourished Other: inebriated HENMT: Other: 5 cm laceration to mentum, chevron Eyes: Conjunctivae: conjunctivae normal Neck: Neck: normal visual inspection Other: no spinal tenderness; neck supple Chest: Chest palpation & inspection: normal inspection of the chest Resp: Effort & Inspection: normal respiratory effort and not labored Cardio: Rate: regular rate Heart sounds: no murmurs GI: Inspection: non-distended GI Palp: Yes Soft to palpation and No Tenderness to palpation present (GI) Back/Spine/Pelvis: Back: no CVA tenderness Skin: General skin exam: normal color Neuro: General: patient oriented x3, moves all extremities, no focal motor deficits and CN's II-XI intact bilaterally Extrem: Other: skin tear and abrasion to right proximal forearm Course Vital Signs Vital signs: Vital Signs Temperature 36.9 C 08/13/22 17:00 Pulse Rate 80 08/13/22
[2022-08-13 17:47] LABS: Basophils Absolute Auto 0.05 K/mm3 (0.00-0.10); Basophils Percent Auto 0.9 % (0.0-1.0); Eosinophils Absolute Auto 0.35 K/mm3 (0.02-0.50); Hematocrit 33.5 % (37.0-46.0); Hemoglobin 11.1 g/dL (12.4-15.3); Immature Granulocyte Absolute 0.02 K/mm3 (0.00-0.00); Immature Granulocyte Percent A 0.3 % (0.0-0.0); Lymphocytes Absolute Auto 1.26 K/mm3 (1.10-4.50); Lymphocytes Percent Auto 21.5 % (18.0-42.0); Mean Corpuscular HGB Conc 33.1 g/dL (32.0-36.0); Mean Corpuscular Hemoglobin 32.4 pg (27.0-31.0); Mean Corpuscular Volume 97.7 fL (78.0-102.0); Mean Platelet Volume 11.1 fl (8.7-11.0); Monocytes Absolute Auto 0.74 K/mm3 (0.10-0.90); Monocytes Percent Auto 12.6 % (2.0-11.0); Neutrophils Absolute Auto 3.4 K/mm3 (1.7-7.2); Neutrophils Percent Auto 58.7 % (50.0-70.0); Platelet Count Result 160 K/mm3 (150-420); Red Blood Count 3.43 M/mm3 (4.70-6.10); Red Cell Distribution Width 13.2 % (11.6-14.4); White Blood Count 5.9 K/mm3 (4.8-10.8)
[2022-08-13 18:00] LABS: INR 2.1; Prothrombin Time 21.7 Seconds (9.50-12.10)
[2022-08-13] MEDS: SODIUM CHLORIDE 0.9% IV 1,000 ML 999 ML IV CONT (18:00)
[2022-08-13 18:04] LABS: Alanine Aminotransferase 16 U/L (16-63); Albumin Level 3.2 g/dL (3.4-5.0); Alkaline Phosphatase 90 U/L (46-116); Anion Gap 7 mmol/L (8-16); Aspartate Amino Transferase 23 U/L (15-37); Bilirubin,Total 0.3 mg/dL (0.00-1.00); Blood Urea Nitrogen 49 mg/dL (7-18); Calcium 8.6 mg/dL (8.5-10.1); Carbon Dioxide 29 mmol/L (21-32); Chloride 91 mmol/L (98-108); Estimated CRCL calculation 36 ml/min; Estimated Glomerular Filt Rate 40; Glucose 113 mg/dL (70-99); Osmolality Calculated 278 mOsm/kg (285-295); Sodium 127 mmol/L (136-145); Total Protein 6.8 g/dL (6.4-8.2)
[2022-08-13 18:17] LABS: Ethanol 187 mg/dL (0-6)
[2022-08-13 18:59] VITALS: BP 126/70; PULSE 82; RESP 20; O2SAT 97
[2022-08-13] MEDS: LIDO 1%/EPINEPHRINE 1:100,000 20 ML VIAL 10 ML INFILTRATE (19:05)
[2022-08-13 19:25] VITALS: BP 122/80; PULSE 88; RESP 18; O2SAT 94
[2022-08-13 20:38] VITALS: BP 128/60; PULSE 80; RESP 20; O2SAT 94
[2022-08-13 21:26] VITALS: BP 127/80; PULSE 88; RESP 18; TEMP 37.2; O2SAT 98
== END 2022-08-13 21:34 | disposition home or self-care (01) ==
PROVIDERS: Emergency Provider Emergency Medicine; PCP Internal Medicine
DX: S01.81XA Laceration without foreign body of other part of head, initial encounter (principal); F10.129 Alcohol abuse with intoxication, unspecified; I48.91 Unspecified atrial fibrillation; E78.5 Hyperlipidemia, unspecified; I50.9 Heart failure, unspecified; I25.10 Atherosclerotic heart disease of native coronary artery without angina pectoris; Z79.01 Long term (current) use of anticoagulants; Z87.891 Personal history of nicotine dependence; Z79.899 Other long term (current) drug therapy; Y90.6 Blood alcohol level of 120-199 mg/100 ml; W18.39XA Other fall on same level, initial encounter
CPT/HCPCS: 12013; 36415; 70450; 71046; 71250; 72125; 74176; 80053; 80307; 82550; 82553; 83036; 83735; 83880; 84443; 84484; 85025; 85610; 96360; 99284; J7030; L0150

== ENCOUNTER 2022-08-20 10:32 | Outpatient (CLI) | payer MEDICARE, SELFPAY ==
[2022-08-20 10:50] LABS: Basophils Absolute Auto 0.04 K/mm3 (0.00-0.10); Basophils Percent Auto 0.6 % (0.0-1.0); Eosinophils Absolute Auto 0.31 K/mm3 (0.02-0.50); Hemoglobin 11.4 g/dL (12.4-15.3); Immature Granulocyte Absolute 0.02 K/mm3 (0.00-0.00); Immature Granulocyte Percent A 0.3 % (0.0-0.0); Lymphocytes Absolute Auto 1.02 K/mm3 (1.10-4.50); Lymphocytes Percent Auto 16.4 % (18.0-42.0); Mean Corpuscular HGB Conc 32.6 g/dL (32.0-36.0); Mean Corpuscular Hemoglobin 32.1 pg (27.0-31.0); Mean Corpuscular Volume 98.6 fL (78.0-102.0); Monocytes Absolute Auto 0.68 K/mm3 (0.10-0.90); Monocytes Percent Auto 10.9 % (2.0-11.0); Neutrophils Absolute Auto 4.2 K/mm3 (1.7-7.2); Neutrophils Percent Auto 66.8 % (50.0-70.0); Platelet Count Result 163 K/mm3 (150-420); Red Blood Count 3.55 M/mm3 (4.70-6.10); Red Cell Distribution Width 13.5 % (11.6-14.4); White Blood Count 6.2 K/mm3 (4.8-10.8)
[2022-08-20 11:43] LABS: Alanine Aminotransferase 12 U/L (16-63); Albumin Level 3.6 g/dL (3.4-5.0); Alkaline Phosphatase 100 U/L (46-116); Anion Gap 7 mmol/L (8-16); Aspartate Amino Transferase 21 U/L (15-37); Bilirubin,Total 0.7 mg/dL (0.00-1.00); Blood Urea Nitrogen 45 mg/dL (7-18); Calcium 9.4 mg/dL (8.5-10.1); Carbon Dioxide 33 mmol/L (21-32); Chloride 100 mmol/L (98-108); Estimated Glomerular Filt Rate 47; Glucose 116 mg/dL (70-99); NT Pro B Type Natriuretic Pept 4692 pg/mL (0-450); Osmolality Calculated 302 mOsm/kg (285-295); Potassium 4.6 mmol/L (3.5-5.1); Sodium 140 mmol/L (136-145)
== END 2022-08-20 10:33 | disposition home or self-care (01) ==
LOC: CHSLAB 10:34
PROVIDERS: PCP Internal Medicine; Visit Provider Internal Medicine
DX: I50.9 Heart failure, unspecified (principal)
CPT/HCPCS: 36415; 80053; 83880; 85025

== ENCOUNTER 2022-08-31 09:35 | Outpatient (CLI) | payer MEDICARE, SELFPAY ==
--- NOTE | ~2022-08-31 | CT_ITS ---
EXAMINATION:CT chest high resolution wo co DATE: 08/31/2022 11:16 INDICATION: Interstitial lung disease. TECHNIQUE: Computed tomography (CT) of the chest was performed without intravenous contrast. Automate d exposure control and iterative reconstruction technique were employed. The dose-length product (DLP ) was 604.38 mGy-cm. COMPARISON: Chest CT 08/13/2022, chest CT 02/07/2018 FINDINGS: The lung volumes are small. There is mild emphysema. There is widespread septal thickening in the lungs. There are airspace opacities in right mid and lower lung zones. There are chronic airsp kaylen opacities in left lower lobe abutting the pleura with volume loss, likely rounded atelectasis. No bronchiectasis. There is a chronic small left pleural effusion with pleural thickening. There is a t race right pleural effusion versus pleural thickening. Cardiomegaly is noted. There are coronary maria e ry calcifications. There are changes of coronary artery bypass grafting. There are calcifications of aortic valve. There is a left chest pacer with leads in right atrium, right ventricle, and coronary s inus. There is ectasia of ascending aorta measuring 4.4 cm. There is chronic mild mediastinal lymphad enopathy, likely reactive. There are bridging endplate osteophytes at multiple levels in the spine, c onsistent with diffuse idiopathic skeletal hyperostosis (DISH). IMPRESSION: 1. Stable diffuse lung disease, consistent with chronic interstitial lung disease in a pattern of usu al interstitial pneumonia (UIP). 2. Mild emphysema. 3. Chronic small left pleural effusion with pleural thickening and adjacent rounded atelectasis. 4. Cardiomegaly. Reviewed, dictated and finalized at location A. IMPRESSION: 1. Stable diffuse lung disease, consistent with chronic interstitial lung disea se in a pattern of usual interstitial pneumonia (UIP). 2. Mild emphysema. 3. Chronic small left pleural effusion with pleural thickening and adjacent rou nded atelectasis. 4. Cardiomegaly.
[2022-08-31 09:45] VITALS: PULSE 92; O2SAT 94
[2022-08-31 09:55] VITALS: PULSE 115; O2SAT 92
--- NOTE | 2022-08-31 10:22 | HOMEO2EVAL ---
Evaluation was performed at [facility] Home Oxygen Evaluation RC: Home Oxygen (O2) Evaluation Start: 08/31/22 10:16 Freq: Status: Active Protocol: RPE Activity Type Activity Date Activity User E-sign Co-sign Detail Recorded Client Recorded Date Recorded By Document 08/31/22 09:45 RONDA [email or web address] 08/31/22 10:22 SJB Document 08/31/22 09:55 SJB [email or web address] 08/31/22 10:22 SJB 08/31/22 08/31/22 09:45 09:55 Home O2 Evaluation [Oxygen] -Test Phase Resting Exercise -Oxygen Delivery Room Air Room Air [Pulse Oximetry] -Pulse Oximetry (90-100 %) 94 92 [Pulse Rate] -Pulse Rate (60-100 beats/min) 92 115 H [Evaluation] -Activity Tolerance Good -Rating of Perceived Dyspnea (PD) +2 Mild, Some Difficulty, Noticeable to the Observer -Rate of Perceived Exertion (PE) 13 Somewhat Query Text:Click the Protocol Button Hard to View the RPE Scale [Exercise] -Ambulation Distance (feet) 310 -Ambulation Distance (meters) 94.48 [Comments] -Home Oxygen Evaluation Comments Will begin walk Pt walked a pushing total of 310 ft wheelchair on r , stopping in /air. the middle for a 3 minute break, before continuing. Pt 's complaint was more of leg weakness. Pt finished walk with Sp02s staying above 92% and hr up to 115. Good effort. [Charges] -Treatment Charges O2 Evaluation - Outpatient
== END 2022-08-31 09:36 | disposition home or self-care (01) ==
LOC: CHSCARD 09:36
PROVIDERS: PCP Internal Medicine; Visit Provider Internal Medicine
DX: J84.9 Interstitial pulmonary disease, unspecified (principal); J43.9 Emphysema, unspecified; J90 Pleural effusion, not elsewhere classified; I51.7 Cardiomegaly
CPT/HCPCS: 71250; 94060; 94618; 94726; 94729

== ENCOUNTER 2022-09-06 10:07 | Outpatient (CLI) | payer MEDICARE, SELFPAY ==
[2022-09-06] MEDS: CYANOCOBALAMIN INJ 1,000 MCG/ML VIAL 1000 MCG IM (10:26)
[2022-09-06 10:28] VITALS: BP 109/60; PULSE 60; RESP 16; O2SAT 97; BMI 32.0
--- NOTE | 2022-09-06 10:30 | PC.NURSE ---
Patient here for monthly B12 injection. No concerns voiced. B12 injection administered. SEE MAR. Tolerated well. Safe exit of hospital per wc/with sign other. Will return October 11, 2022 at 1000.
[2022-09-06 10:41] LABS: Basophils Absolute Auto 0.04 K/mm3 (0.00-0.10); Basophils Percent Auto 0.6 % (0.0-1.0); Eosinophils Absolute Auto 0.42 K/mm3 (0.02-0.50); Eosinophils Percent Auto 6.7 % (1.0-6.0); Hematocrit 35.1 % (37.0-46.0); Hemoglobin 11.6 g/dL (12.4-15.3); Immature Granulocyte Absolute 0.02 K/mm3 (0.00-0.00); Immature Granulocyte Percent A 0.3 % (0.0-0.0); Lymphocytes Absolute Auto 1.08 K/mm3 (1.10-4.50); Lymphocytes Percent Auto 17.1 % (18.0-42.0); Mean Corpuscular Hemoglobin 32.5 pg (27.0-31.0); Mean Corpuscular Volume 98.3 fL (78.0-102.0); Mean Platelet Volume 10.6 fl (8.7-11.0); Monocytes Absolute Auto 0.75 K/mm3 (0.10-0.90); Monocytes Percent Auto 11.9 % (2.0-11.0); Neutrophils Percent Auto 63.4 % (50.0-70.0); Platelet Count Result 159 K/mm3 (150-420); Red Blood Count 3.57 M/mm3 (4.70-6.10); Red Cell Distribution Width 13.8 % (11.6-14.4); White Blood Count 6.3 K/mm3 (4.8-10.8)
[2022-09-06 10:51] LABS: Prothrombin Time 21.1 Seconds (9.50-12.10)
[2022-09-06 11:14] LABS: Alanine Aminotransferase 17 U/L (16-63); Albumin Level 3.6 g/dL (3.4-5.0); Alkaline Phosphatase 99 U/L (46-116); Anion Gap 7 mmol/L (8-16); Aspartate Amino Transferase 21 U/L (15-37); Bilirubin,Total 0.7 mg/dL (0.00-1.00); Blood Urea Nitrogen 51 mg/dL (7-18); Calcium 9.2 mg/dL (8.5-10.1); Carbon Dioxide 30 mmol/L (21-32); Chloride 101 mmol/L (98-108); Estimated CRCL calculation 38 ml/min; Estimated Glomerular Filt Rate 42; Glucose 102 mg/dL (70-99); Magnesium 2.5 mg/dL (1.8-2.4); NT Pro B Type Natriuretic Pept 4244 pg/mL (0-450); Osmolality Calculated 299 mOsm/kg (285-295); Potassium 5.2 mmol/L (3.5-5.1); Sodium 138 mmol/L (136-145); Total Protein 7.1 g/dL (6.4-8.2)
[2022-09-08 13:36] LABS: Vitamin B12 > 2000 pg/mL (193-986)
== END 2022-09-06 10:08 | disposition home or self-care (01) ==
LOC: CHSTREATRM 10:11
PROVIDERS: PCP Internal Medicine; Visit Provider Specialist
DX: E53.8 Deficiency of other specified B group vitamins (principal); I48.19 Other persistent atrial fibrillation; I50.9 Heart failure, unspecified; N18.30 Chronic kidney disease, stage 3 unspecified
CPT/HCPCS: 36415; 80053; 82607; 83735; 83880; 85025; 85610; 96372; J3420

== ENCOUNTER 2022-09-21 09:17 | Outpatient (CLI) | payer MEDICARE, SELFPAY ==
[2022-09-21 11:48] LABS: Alanine Aminotransferase 21 U/L (16-63); Albumin Level 3.9 g/dL (3.4-5.0); Alkaline Phosphatase 95 U/L (46-116); Anion Gap 6 mmol/L (8-16); Aspartate Amino Transferase 22 U/L (15-37); Bilirubin,Total 0.5 mg/dL (0.00-1.00); Blood Urea Nitrogen 68 mg/dL (7-18); Calcium 9.1 mg/dL (8.5-10.1); Carbon Dioxide 31 mmol/L (21-32); Chloride 99 mmol/L (98-108); Estimated Glomerular Filt Rate 34; Glucose 108 mg/dL (70-99); NT Pro B Type Natriuretic Pept 3939 pg/mL (0-450); Osmolality Calculated 302 mOsm/kg (285-295); Potassium 4.6 mmol/L (3.5-5.1); Sodium 136 mmol/L (136-145)
== END 2022-09-21 09:18 | disposition home or self-care (01) ==
LOC: CHSLAB 09:20
PROVIDERS: PCP Internal Medicine; Visit Provider Internal Medicine
DX: I50.9 Heart failure, unspecified (principal)
CPT/HCPCS: 36415; 80053; 83880

== ENCOUNTER 2022-10-04 10:23 | Outpatient (CLI) | payer MEDICARE, SELFPAY ==
[2022-10-04 10:36] LABS: Basophils Absolute Auto 0.03 K/mm3 (0.00-0.10); Basophils Percent Auto 0.5 % (0.0-1.0); Eosinophils Percent Auto 7.1 % (1.0-6.0); Hematocrit 36.3 % (37.0-46.0); Hemoglobin 11.9 g/dL (12.4-15.3); Immature Granulocyte Absolute 0.01 K/mm3 (0.00-0.00); Immature Granulocyte Percent A 0.2 % (0.0-0.0); Lymphocytes Absolute Auto 1.06 K/mm3 (1.10-4.50); Lymphocytes Percent Auto 18.8 % (18.0-42.0); Mean Corpuscular HGB Conc 32.8 g/dL (32.0-36.0); Mean Corpuscular Hemoglobin 31.9 pg (27.0-31.0); Mean Corpuscular Volume 97.3 fL (78.0-102.0); Mean Platelet Volume 10.7 fl (8.7-11.0); Monocytes Absolute Auto 0.58 K/mm3 (0.10-0.90); Monocytes Percent Auto 10.3 % (2.0-11.0); Neutrophils Absolute Auto 3.6 K/mm3 (1.7-7.2); Neutrophils Percent Auto 63.1 % (50.0-70.0); Platelet Count Result 181 K/mm3 (150-420); Red Blood Count 3.73 M/mm3 (4.70-6.10); Red Cell Distribution Width 13.9 % (11.6-14.4); White Blood Count 5.6 K/mm3 (4.8-10.8)
[2022-10-04 10:49] LABS: INR 2.4; Prothrombin Time 25.1 Seconds (9.50-12.10)
[2022-10-04 11:15] LABS: Alanine Aminotransferase 22 U/L (16-63); Albumin Level 3.6 g/dL (3.4-5.0); Alkaline Phosphatase 100 U/L (46-116); Anion Gap 8 mmol/L (8-16); Aspartate Amino Transferase 24 U/L (15-37); Bilirubin,Total 0.6 mg/dL (0.00-1.00); Blood Urea Nitrogen 55 mg/dL (7-18); Calcium 9.2 mg/dL (8.5-10.1); Carbon Dioxide 30 mmol/L (21-32); Chloride 98 mmol/L (98-108); Estimated Glomerular Filt Rate 42; Glucose 99 mg/dL (70-99); NT Pro B Type Natriuretic Pept 3559 pg/mL (0-450); Osmolality Calculated 297 mOsm/kg (285-295); Potassium 5.1 mmol/L (3.5-5.1); Sodium 136 mmol/L (136-145)
== END 2022-10-04 10:24 | disposition home or self-care (01) ==
LOC: CHSLAB 10:26
PROVIDERS: PCP Internal Medicine; Visit Provider Specialist
DX: I50.9 Heart failure, unspecified (principal); I48.19 Other persistent atrial fibrillation
CPT/HCPCS: 36415; 80053; 83880; 85025; 85610

== ENCOUNTER 2022-10-15 11:11 | Outpatient (CLI) | payer MEDICARE, SELFPAY ==
[2022-10-15 12:02] LABS: INR 3.7; Prothrombin Time 37.2 Seconds (9.50-12.10)
[2022-10-20 11:38] LABS: Anti Nuclear Antibody Pattern Nuclear, Speckled
== END 2022-10-15 11:12 | disposition home or self-care (01) ==
PROVIDERS: Internal Medicine Critical Care Medicine; PCP Internal Medicine
DX: J84.9 Interstitial pulmonary disease, unspecified (principal); R06.00 Dyspnea, unspecified; M35.9 Systemic involvement of connective tissue, unspecified; I48.19 Other persistent atrial fibrillation
CPT/HCPCS: 36415; 85610; 86038; 86039; 86331; 86606; 86609

== ENCOUNTER 2022-10-22 08:58 | Outpatient (CLI) | payer MEDICARE, SELFPAY ==
--- NOTE | ~2022-10-22 | CT_ITS ---
CT Scan of the Chest without Contrast: Clinical Indication: Interstitial pulmonary disease Technique: Contiguous sections were acquired throughout the chest without intravenous contrast. Dose reduction technique was used on this scan by utilizing automated exposure control and iterative recon struction technique. The dose-length product (DLP) was 376.67 mGy-cm. COMPARISON: 08/31/2022 Findings: There is no evidence of any significant mediastinal, hilar or axillary lymphadenopathy. There is exte nsive atherosclerotic calcification of the aorta and coronary arteries. Cardiomegaly noted. Pacemaker is present. Ascending aorta measures 4.4 cm in diameter. There is a small chronic left basilar pleural fluid collection with thickened pleural lining and some hyperdense material within the collection, similar appearance to prior exam. Adjacent left lower lob e consolidation probably represents associated atelectasis, also similar to prior exam. There is exte nsive interstitial disease involving the right lung, especially right lower lobe and peripheral right upper lobe, with interstitial thickening, subpleural reticulation, and minimal groundglass opacity. There is probable minimal subpleural reticulation in the left upper lobe. Images through the upper abdomen reveal multiple calcified gallstones. Impression: Overall, no significant change from prior exam. Small chronic left basilar pleural fluid collection. Correlate for chronic empyema or other complex/e xudative effusion. Adjacent probable chronic left lower lobe atelectasis, unchanged. Extensive chronic interstitial disease, right lung significant worse than left, unchanged from prior exam. Cholelithiasis. Cardiomegaly with dilatation of ascending aorta to 4.4 cm in diameter. Reviewed, dictated and finalized at [facility]. Impression: Overall, no significant change from prior exam. Small chronic left basilar pleural fluid collection. Correlate for chronic empy kush or other complex/exudative effusion. Adjacent probable chronic left lower lobe atelectasis, unchanged. Extensive chronic interstitial disease, right lung significant worse than left, unchanged from prior exam. Cholelithiasis. Cardiomegaly with dilatation of ascending aorta to 4.4 cm in diameter.
[2022-10-22 09:50] LABS: INR 3.9; Prothrombin Time 39.2 Seconds (9.50-12.10)
== END 2022-10-22 08:59 | disposition home or self-care (01) ==
PROVIDERS: PCP Internal Medicine; Visit Provider Internal Medicine Critical Care Medicine
DX: J84.9 Interstitial pulmonary disease, unspecified (principal); I48.19 Other persistent atrial fibrillation; R91.8 Other nonspecific abnormal finding of lung field; K80.20 Calculus of gallbladder without cholecystitis without obstruction; I51.7 Cardiomegaly
CPT/HCPCS: 36415; 71250; 85610

== ENCOUNTER 2022-11-01 09:01 | Outpatient (CLI) | payer MEDICARE, SELFPAY ==
[2022-11-03 20:15] LABS: ANA Cascade Screen Negative (Negative)
== END 2022-11-01 09:02 | disposition home or self-care (01) ==
LOC: CHSLAB 09:03
PROVIDERS: PCP Internal Medicine; Visit Provider Internal Medicine Critical Care Medicine
DX: J84.9 Interstitial pulmonary disease, unspecified (principal)
CPT/HCPCS: 36415; 86038; 86331; 86606; 86609

== ENCOUNTER 2022-11-11 10:38 | Outpatient (CLI) | payer MEDICARE, SELFPAY ==
[2022-11-11 11:12] LABS: Anion Gap 4 mmol/L (8-16); Blood Urea Nitrogen 58 mg/dL (7-18); Calcium 9.3 mg/dL (8.5-10.1); Carbon Dioxide 32 mmol/L (21-32); Chloride 99 mmol/L (98-108); Estimated Glomerular Filt Rate 33; Glucose 106 mg/dL (70-99); Osmolality Calculated 296 mOsm/kg (285-295); Potassium 5.2 mmol/L (3.5-5.1); Sodium 135 mmol/L (136-145)
== END 2022-11-11 10:39 | disposition home or self-care (01) ==
LOC: CHSLAB 10:44
PROVIDERS: PCP Internal Medicine
DX: I50.22 Chronic systolic (congestive) heart failure (principal); N18.9 Chronic kidney disease, unspecified
CPT/HCPCS: 36415; 80048

== ENCOUNTER 2022-11-15 11:10 | Outpatient (CLI) | payer MEDICARE, SELFPAY ==
--- NOTE | 2022-11-15 11:10 | PC.NURSE ---
Here for OP IM injection
[2022-11-15] MEDS: CYANOCOBALAMIN INJ 1,000 MCG/ML VIAL 1000 MCG IM (11:16)
--- NOTE | 2022-11-15 11:26 | PC.NURSE ---
B12 injection given, tolerated well, discharged to home via wheel chair,
[2022-11-17 08:15] VITALS: BMI 33.6
== END 2022-11-15 11:11 | disposition home or self-care (01) ==
PROVIDERS: PCP Internal Medicine; Visit Provider Internal Medicine
DX: E53.8 Deficiency of other specified B group vitamins (principal)
CPT/HCPCS: 96372

== ENCOUNTER 2022-12-27 10:21 | Outpatient (CLI) | payer MEDICARE, SELFPAY ==
[2022-12-27 10:57] LABS: INR 2.1; Prothrombin Time 22.2 Seconds (9.50-12.10)
[2022-12-27 11:07] VITALS: BP 116/63; PULSE 72; RESP 14; O2SAT 96; BMI 33.6
[2022-12-27] MEDS: CYANOCOBALAMIN INJ 1,000 MCG/ML VIAL 1000 MCG (11:14)
--- NOTE | 2022-12-27 11:14 | PC.NURSE ---
Patient here for monthly B12 injection. No concerns voiced. Vitamin 12 injection administered. SEE MAR. Tolerated well. Safe exit of hospital per with friend. Will return 2022 Fri. at 1030.
== END 2022-12-27 10:22 | disposition home or self-care (01) ==
LOC: CHSLAB 10:24 → CHSTREATRM 10:54
PROVIDERS: PCP Internal Medicine; Visit Provider Specialist
DX: E53.8 Deficiency of other specified B group vitamins (principal); I48.19 Other persistent atrial fibrillation; Z79.01 Long term (current) use of anticoagulants
CPT/HCPCS: 36415; 85610; 96372; J3420

== ENCOUNTER 2023-01-17 10:19 | Outpatient (CLI) | payer MEDICARE, SELFPAY ==
[2023-01-17 11:17] LABS: Anion Gap 7 mmol/L (8-16); Blood Urea Nitrogen 40 mg/dL (7-18); Calcium 9.8 mg/dL (8.5-10.1); Carbon Dioxide 32 mmol/L (21-32); Chloride 100 mmol/L (98-108); Estimated Glomerular Filt Rate 52; Glucose 108 mg/dL (70-99); Osmolality Calculated 298 mOsm/kg (285-295); Potassium 4.5 mmol/L (3.5-5.1); Sodium 139 mmol/L (136-145)
== END 2023-01-17 10:20 | disposition home or self-care (01) ==
LOC: CHSLAB 10:23
PROVIDERS: PCP Internal Medicine
DX: E87.5 Hyperkalemia (principal); N28.9 Disorder of kidney and ureter, unspecified
CPT/HCPCS: 36415; 80048

== ENCOUNTER 2023-01-28 10:05 | Outpatient (CLI) | payer MEDICARE, SELFPAY ==
[2023-01-28 10:24] VITALS: BP 132/61; PULSE 72; RESP 16; TEMP 36.4; O2SAT 96
[2023-01-28 10:25] VITALS: BMI 33.6
[2023-01-28] MEDS: CYANOCOBALAMIN INJ 1,000 MCG/ML VIAL 1000 MCG (10:29)
--- NOTE | 2023-01-28 10:29 | PC.NURSE ---
Patient here for monthly B12 injection. No concerns voiced. B12 injection administered SEE MAR. Tolerated well. Safe exit of hospital per wc with friend. Will return 02/28/23 at 100 for next injection.
== END 2023-01-28 10:06 | disposition home or self-care (01) ==
LOC: CHSTREATRM 10:07
PROVIDERS: PCP Internal Medicine; Visit Provider Internal Medicine
DX: E53.8 Deficiency of other specified B group vitamins (principal)
CPT/HCPCS: 96372; J3420

== ENCOUNTER 2023-02-14 11:11 | Outpatient (CLI) | payer MEDICARE, SELFPAY ==
[2023-02-14 12:26] LABS: Anion Gap 5 mmol/L (8-16); Blood Urea Nitrogen 52 mg/dL (7-18); Calcium 8.9 mg/dL (8.5-10.1); Carbon Dioxide 31 mmol/L (21-32); Chloride 102 mmol/L (98-108); Estimated Glomerular Filt Rate 37; Glucose 124 mg/dL (70-99); Osmolality Calculated 301 mOsm/kg (285-295); Potassium 4.3 mmol/L (3.5-5.1); Sodium 138 mmol/L (136-145)
== END 2023-02-14 11:12 | disposition home or self-care (01) ==
LOC: CHSLAB 11:12
PROVIDERS: PCP Internal Medicine; Visit Provider Specialist
DX: I50.43 Acute on chronic combined systolic (congestive) and diastolic (congestive) heart failure (principal); N28.9 Disorder of kidney and ureter, unspecified
CPT/HCPCS: 36415; 80048

== ENCOUNTER 2023-02-21 10:29 | Outpatient (RCR) | payer MEDICARE, SELFPAY ==
[2022-12-13 09:54] LABS: INR 1.6; Prothrombin Time 16.6 Seconds (9.50-12.10)
[2022-12-20 10:06] LABS: INR 1.9; Prothrombin Time 19.8 Seconds (9.50-12.10)
[2023-01-10 09:34] LABS: INR 2.5; Prothrombin Time 25.6 Seconds (9.50-12.10)
[2023-01-24 11:05] LABS: INR 2.1
[2023-02-21 11:01] LABS: INR 2.7; Prothrombin Time 27.7 Seconds (9.50-12.10)
== END 2023-03-13 23:59 | disposition home or self-care (01) ==
LOC: CHSLAB 10:29
PROVIDERS: PCP Internal Medicine; Visit Provider Internal Medicine Cardiovascular Disease
DX: Z51.81 Encounter for therapeutic drug level monitoring (principal); I48.19 Other persistent atrial fibrillation; Z79.01 Long term (current) use of anticoagulants
CPT/HCPCS: 36415; 85610

== ENCOUNTER 2023-02-28 10:53 | Outpatient (CLI) | payer MEDICARE, SELFPAY ==
[2023-02-28 11:03] VITALS: BMI 33.6
[2023-02-28 11:04] VITALS: BP 101/59; PULSE 60; RESP 16; TEMP 36.6; O2SAT 96
[2023-02-28] MEDS: CYANOCOBALAMIN INJ 1,000 MCG/ML VIAL 1000 MCG IM (11:08)
--- NOTE | 2023-02-28 11:08 | PC.NURSE ---
Patient here for monthly B12 injection. Education given. Voices no concerns. Vitamin B12 administered see JUN. Tolerated well. Will return 2022 for next injection at 1030. Safe exit of hospital per wc/sign other.
== END 2023-02-28 10:54 | disposition home or self-care (01) ==
LOC: CHSTREATRM 10:56
PROVIDERS: PCP Internal Medicine; Visit Provider Internal Medicine
DX: E53.8 Deficiency of other specified B group vitamins (principal)
CPT/HCPCS: 96372; J3420

== ENCOUNTER 2023-03-11 09:08 | Outpatient (CLI) | payer MEDICARE, SELFPAY ==
[2023-03-11 09:29] LABS: Basophils Absolute Auto 0.03 K/mm3 (0.00-0.10); Basophils Percent Auto 0.6 % (0.0-1.0); Eosinophils Absolute Auto 0.42 K/mm3 (0.02-0.50); Hematocrit 33.9 % (37.0-46.0); Hemoglobin 11.2 g/dL (12.4-15.3); Immature Granulocyte Absolute 0.02 K/mm3 (0.00-0.00); Immature Granulocyte Percent A 0.4 % (0.0-0.0); Lymphocytes Percent Auto 17.2 % (18.0-42.0); Mean Corpuscular Hemoglobin 32.7 pg (27.0-31.0); Mean Corpuscular Volume 99.1 fL (78.0-102.0); Mean Platelet Volume 11.1 fl (8.7-11.0); Monocytes Absolute Auto 0.71 K/mm3 (0.10-0.90); Monocytes Percent Auto 13.5 % (2.0-11.0); Neutrophils Absolute Auto 3.2 K/mm3 (1.7-7.2); Neutrophils Percent Auto 60.3 % (50.0-70.0); Platelet Count Result 175 K/mm3 (150-420); Red Blood Count 3.42 M/mm3 (4.70-6.10); Red Cell Distribution Width 13.6 % (11.6-14.4); White Blood Count 5.2 K/mm3 (4.8-10.8)
[2023-03-11 09:50] LABS: INR 4.1; Prothrombin Time 40.8 Seconds (9.50-12.10)
[2023-03-11 10:14] LABS: Alanine Aminotransferase 19 U/L (16-63); Albumin Level 3.2 g/dL (3.4-5.0); Alkaline Phosphatase 113 U/L (46-116); Anion Gap 7 mmol/L (8-16); Aspartate Amino Transferase 16 U/L (15-37); Bilirubin,Total 0.5 mg/dL (0.00-1.00); Blood Urea Nitrogen 56 mg/dL (7-18); Calcium 9.3 mg/dL (8.5-10.1); Carbon Dioxide 30 mmol/L (21-32); Chloride 94 mmol/L (98-108); Estimated Glomerular Filt Rate 39; Glucose 117 mg/dL (70-99); Osmolality Calculated 288 mOsm/kg (285-295); Potassium 4.6 mmol/L (3.5-5.1); Sodium 131 mmol/L (136-145); Total Protein 6.6 g/dL (6.4-8.2)
== END 2023-03-11 09:09 | disposition home or self-care (01) ==
LOC: CHSLAB 09:13
PROVIDERS: PCP Internal Medicine
DX: I25.5 Ischemic cardiomyopathy (principal); Z45.02 Encounter for adjustment and management of automatic implantable cardiac defibrillator
CPT/HCPCS: 36415; 80053; 85025; 85610

== ENCOUNTER 2023-04-04 10:04 | Outpatient (CLI) | payer MEDICARE, SELFPAY ==
[2023-04-04] MEDS: CYANOCOBALAMIN INJ 1,000 MCG/ML VIAL 1000 MCG IM (10:23)
[2023-04-04 10:24] VITALS: BMI 33.4
[2023-04-04 10:25] VITALS: BP 125/59; PULSE 64; RESP 16; TEMP 36.4; O2SAT 95
--- NOTE | 2023-04-04 10:26 | PC.NURSE ---
Patient here for monthly B12 injection. No concerns voiced. B12 injection administered. SEE MAR. Tolerated well. Will return 05/09/23 at 1000 for next month injection. Safe exit of hospital per wc/friend.
== END 2023-04-04 10:05 | disposition home or self-care (01) ==
PROVIDERS: PCP Internal Medicine; Visit Provider Internal Medicine
DX: E53.8 Deficiency of other specified B group vitamins (principal)
CPT/HCPCS: 96372; J3420

== ENCOUNTER 2023-04-06 09:19 | Outpatient (CLI) | payer MEDICARE, SELFPAY ==
[2023-04-06 09:49] LABS: INR 3.1
== END 2023-04-06 09:20 | disposition home or self-care (01) ==
LOC: CHSLAB 09:24
PROVIDERS: PCP Internal Medicine
DX: I48.0 Paroxysmal atrial fibrillation (principal)
CPT/HCPCS: 36415; 85610

== ENCOUNTER 2023-04-13 10:21 | Outpatient (CLI) | payer MEDICARE, SELFPAY ==
[2023-04-13 12:17] LABS: INR 3.5; Prothrombin Time 35.5 Seconds (9.50-12.10)
== END 2023-04-13 10:22 | disposition home or self-care (01) ==
LOC: CHSLAB 10:27
PROVIDERS: PCP Internal Medicine
DX: I48.0 Paroxysmal atrial fibrillation (principal)
CPT/HCPCS: 36415; 85610

== ENCOUNTER 2023-04-20 09:52 | Outpatient (CLI) | payer MEDICARE, SELFPAY ==
[2023-04-20 10:42] LABS: INR 3.8; Prothrombin Time 37.8 Seconds (9.50-12.10)
[2023-04-20 10:51] LABS: Anion Gap 2 mmol/L (8-16); Blood Urea Nitrogen 57 mg/dL (7-18); Calcium 9.5 mg/dL (8.5-10.1); Carbon Dioxide 36 mmol/L (21-32); Chloride 99 mmol/L (98-108); Estimated Glomerular Filt Rate 40; Glucose 149 mg/dL (70-99); Magnesium 2.1 mg/dL (1.8-2.4); Osmolality Calculated 302 mOsm/kg (285-295); Potassium 4.1 mmol/L (3.5-5.1); Sodium 137 mmol/L (136-145)
== END 2023-04-20 09:53 | disposition home or self-care (01) ==
LOC: CHSLAB 09:58
PROVIDERS: PCP Internal Medicine; Visit Provider Specialist
DX: I48.0 Paroxysmal atrial fibrillation (principal)
CPT/HCPCS: 36415; 80048; 83735; 85610

== ENCOUNTER 2023-05-25 10:36 | Outpatient (RCR) | payer MEDICARE, SELFPAY ==
[2023-03-21 11:19] LABS: INR 2.1; Prothrombin Time 21.4 Seconds (9.50-12.10)
[2023-04-27 10:23] LABS: INR 2.5; Prothrombin Time 25.9 Seconds (9.50-12.10)
[2023-05-09 10:52] VITALS: BP 111/68; PULSE 64; RESP 16; BMI 32.8
[2023-05-09] MEDS: CYANOCOBALAMIN INJ 1,000 MCG/ML VIAL 1000 MCG IM (10:53)
--- NOTE | 2023-05-09 10:54 | PC.NURSE ---
Patient here for monthly B12 injection. Education given. No concerns voiced. B12 injection administered. SEE MAR. Tolerated well. Will return 06/13/23 at 1030 for next month injection. Safe exit of hospital per wc/sign other.
[2023-05-09 11:03] LABS: INR 3.6; Prothrombin Time 35.6 Seconds (9.50-12.10)
[2023-05-18 11:01] LABS: INR 2.8; Prothrombin Time 28.7 Seconds (9.50-12.10)
[2023-05-25 10:59] LABS: INR 3.2; Prothrombin Time 32.2 Seconds (9.50-12.10)
== END 2023-06-19 23:59 | disposition home or self-care (01) ==
LOC: CHSLAB 10:36
PROVIDERS: PCP Internal Medicine; Visit Provider Specialist
DX: Z51.81 Encounter for therapeutic drug level monitoring (principal); I48.19 Other persistent atrial fibrillation; Z79.01 Long term (current) use of anticoagulants
CPT/HCPCS: 36415; 85610; 96372; J3420

== ENCOUNTER 2023-06-01 11:15 | Outpatient (CLI) | payer MEDICARE, SELFPAY ==
[2023-06-01 11:44] LABS: INR 3.6; Prothrombin Time 35.7 Seconds (9.50-12.10)
== END 2023-06-01 11:16 | disposition home or self-care (01) ==
LOC: CHSLAB 11:20
PROVIDERS: PCP Internal Medicine
DX: I48.19 Other persistent atrial fibrillation (principal)
CPT/HCPCS: 36415; 85610

== ENCOUNTER 2023-06-08 09:05 | Outpatient (CLI) | payer MEDICARE, SELFPAY ==
[2023-06-08 09:35] LABS: INR 2.7; Prothrombin Time 27.9 Seconds (9.50-12.10)
== END 2023-06-08 09:06 | disposition home or self-care (01) ==
PROVIDERS: PCP Internal Medicine
DX: I48.0 Paroxysmal atrial fibrillation (principal)
CPT/HCPCS: 36415; 85610

== ENCOUNTER 2023-06-20 10:40 | Outpatient (CLI) | payer MEDICARE, SELFPAY ==
[2023-06-20 11:06] VITALS: BP 131/63; PULSE 64; RESP 16; TEMP 36.8; O2SAT 96; BMI 33.4
[2023-06-20] MEDS: CYANOCOBALAMIN INJ 1,000 MCG/ML VIAL 1000 MCG IM (11:08)
--- NOTE | 2023-06-20 11:08 | PC.NURSE ---
Patient here for monthly B12 injection. Education given. No concerns voiced. B12 injection administered. SEE MAR. Tolerated well. Will return 07/23/23 at 1030 for June injection. Safe exit of hospital with significant other/wc.
[2023-06-20 11:15] LABS: INR 1.6; Prothrombin Time 16.6 Seconds (9.50-12.10)
== END 2023-06-20 10:41 | disposition home or self-care (01) ==
LOC: CHSTREATRM 12:42 → CHSLAB 06-21 13:45 → CHSTREATRM 06-21 13:47
PROVIDERS: PCP Internal Medicine; Visit Provider Specialist
DX: E53.8 Deficiency of other specified B group vitamins (principal); Z51.81 Encounter for therapeutic drug level monitoring; I48.19 Other persistent atrial fibrillation; Z79.01 Long term (current) use of anticoagulants
CPT/HCPCS: 36415; 85610; 96372; J3420

== ENCOUNTER 2023-06-27 10:27 | Outpatient (CLI) | payer MEDICARE, SELFPAY ==
[2023-06-27 11:19] LABS: Anion Gap 8 mmol/L (8-16); Blood Urea Nitrogen 83 mg/dL (7-18); Calcium 8.5 mg/dL (8.5-10.1); Carbon Dioxide 29 mmol/L (21-32); Chloride 98 mmol/L (98-108); Estimated Glomerular Filt Rate 32; Glucose 117 mg/dL (70-99); Osmolality Calculated 306 mOsm/kg (285-295); Potassium 4.2 mmol/L (3.5-5.1); Sodium 135 mmol/L (136-145)
== END 2023-06-27 10:28 | disposition home or self-care (01) ==
PROVIDERS: PCP Internal Medicine
DX: I48.19 Other persistent atrial fibrillation (principal); I50.9 Heart failure, unspecified; N18.9 Chronic kidney disease, unspecified; Z98.890 Other specified postprocedural states; Z86.79 Personal history of other diseases of the circulatory system
CPT/HCPCS: 36415; 80048

== ENCOUNTER 2023-06-28 12:21 | Outpatient (CLI) | payer MEDICARE, SELFPAY ==
[2023-06-28 12:46] LABS: Basophils Absolute Auto 0.05 K/mm3 (0.00-0.10); Basophils Percent Auto 0.8 % (0.0-1.0); Eosinophils Absolute Auto 0.52 K/mm3 (0.02-0.50); Eosinophils Percent Auto 8.1 % (1.0-6.0); Hematocrit 33.5 % (37.0-46.0); Hemoglobin 11.2 g/dL (12.4-15.3); Immature Granulocyte Absolute 0.03 K/mm3 (0.00-0.00); Immature Granulocyte Percent A 0.5 % (0.0-0.0); Lymphocytes Percent Auto 15.6 % (18.0-42.0); Mean Corpuscular HGB Conc 33.4 g/dL (32.0-36.0); Mean Corpuscular Volume 95.7 fL (78.0-102.0); Mean Platelet Volume 11.4 fl (8.7-11.0); Monocytes Absolute Auto 0.77 K/mm3 (0.10-0.90); Platelet Count Result 130 K/mm3 (150-420); Red Cell Distribution Width 14.4 % (11.6-14.4); White Blood Count 6.4 K/mm3 (4.8-10.8)
[2023-06-28 13:44] LABS: Alanine Aminotransferase 27 U/L (16-63); Albumin Level 3.4 g/dL (3.4-5.0); Alkaline Phosphatase 121 U/L (46-116); Anion Gap 10 mmol/L (8-16); Aspartate Amino Transferase 21 U/L (15-37); Bilirubin,Total 0.7 mg/dL (0.00-1.00); Blood Urea Nitrogen 84 mg/dL (7-18); Calcium 8.7 mg/dL (8.5-10.1); Carbon Dioxide 27 mmol/L (21-32); Chloride 98 mmol/L (98-108); Estimated Glomerular Filt Rate 36; Glucose 98 mg/dL (70-99); Magnesium 1.8 mg/dL (1.8-2.4); NT Pro B Type Natriuretic Pept 4482 pg/mL (0-450); Osmolality Calculated 305 mOsm/kg (285-295); Phosphorus 3.5 mg/dL (2.6-4.7); Potassium 4.2 mmol/L (3.5-5.1); Sodium 135 mmol/L (136-145); Total Protein 6.7 g/dL (6.4-8.2)
[2023-06-29 10:48] LABS: Immature Reticulocyte Fraction 21.1 % (2.0-16.52); Reticulocyte Hemoglobin Conten 36.8 pg (28.0-35.0); Reticulocyte Percent 2.23 % (0.50-1.50); Reticulocytes Absolute 0.08 M/mm3 (0.02-0.1)
[2023-06-29 11:05] LABS: Ferritin 858 ng/mL (26-388); Iron 120 ug/dL (65-175); Lactate Dehydrogenase 275 U/L (85-227); Percent Iron Saturation 48 % (12-57)
== END 2023-06-28 12:22 | disposition home or self-care (01) ==
LOC: CHSLAB 12:23
PROVIDERS: PCP Internal Medicine; Visit Provider Internal Medicine
DX: D64.9 Anemia, unspecified (principal); I50.9 Heart failure, unspecified; R53.1 Weakness
CPT/HCPCS: 36415; 80053; 82728; 83540; 83550; 83615; 83735; 83880; 84100; 85025; 85046

== ENCOUNTER 2023-07-25 11:29 | Outpatient (CLI) | payer MEDICARE, SELFPAY ==
[2023-07-25 11:41] VITALS: BMI 32.8
[2023-07-25 11:42] VITALS: BP 126/60; PULSE 72; RESP 14; TEMP 36.4; O2SAT 96
[2023-07-25] MEDS: CYANOCOBALAMIN INJ 1,000 MCG/ML VIAL 1000 MCG IM (11:54)
--- NOTE | 2023-07-25 13:19 | PC.NURSE ---
Patient here for monthly B12 injection. No concerns voiced. Education given. B12 injection administered. SEE MAR. Tolerated well. Will return 08/29/23 at 1030 for next month injection. Safe exit of hospital per wc/significant other.
== END 2023-07-25 13:22 | disposition home or self-care (01) ==
LOC: CHSTREATRM 11:31
PROVIDERS: PCP Internal Medicine; Visit Provider Internal Medicine
DX: E53.8 Deficiency of other specified B group vitamins (principal)
CPT/HCPCS: 96372; J3420

== ENCOUNTER 2023-08-29 10:35 | Outpatient (CLI) | payer MEDICARE, SELFPAY ==
[2023-08-29] MEDS: CYANOCOBALAMIN INJ 1,000 MCG/ML VIAL 1000 MCG IM (10:56)
[2023-08-29 10:59] VITALS: BMI 30.3
[2023-08-29 11:00] VITALS: BP 108/73; PULSE 64; RESP 14; TEMP 36.6; O2SAT 97
--- NOTE | 2023-08-29 11:04 | PC.NURSE ---
Patient here for monthly B12 injection. Education given. No concerns voiced. B12 injection administered. SEE MAR. Tolerated well. Will return 09/29/23 at 1030 for next injection. Safe exit of hospital per wc/sign other.
== END 2023-08-29 10:36 | disposition home or self-care (01) ==
PROVIDERS: PCP Internal Medicine; Visit Provider Internal Medicine
DX: E53.8 Deficiency of other specified B group vitamins (principal)
CPT/HCPCS: 96372; J3420

== ENCOUNTER 2023-09-29 10:30 | Outpatient (CLI) | payer MEDICARE, SELFPAY ==
[2023-09-29 10:57] VITALS: BP 118/74; PULSE 68; RESP 16; TEMP 36.3; O2SAT 97; BMI 30.3
[2023-09-29] MEDS: CYANOCOBALAMIN INJ 1,000 MCG/ML VIAL 1000 MCG IM (11:00)
--- NOTE | 2023-09-29 11:05 | PC.NURSE ---
Patient here for monthly B12 injection. Education given. No concerns voiced. Injection administered. SEE MAR. Safe exit of hospital per wc/significant other. Will return November 01, 2023 at 1000 a.m. for next B12 injection.
== END 2023-09-29 10:31 | disposition home or self-care (01) ==
PROVIDERS: PCP Internal Medicine; Visit Provider Internal Medicine
DX: E53.8 Deficiency of other specified B group vitamins (principal)
CPT/HCPCS: 96372; J3420

== ENCOUNTER 2023-11-01 10:11 | Outpatient (CLI) | payer MEDICARE, SELFPAY ==
[2023-11-01 10:29] VITALS: BP 126/80; PULSE 68; RESP 16; TEMP 35.9; O2SAT 97; BMI 33.1
[2023-11-01] MEDS: CYANOCOBALAMIN INJ 1,000 MCG/ML VIAL 1000 MCG IM (10:36)
--- NOTE | 2023-11-01 10:36 | PC.NURSE ---
Patient here for monthly B12 injection. Education given. NO concerns voiced. Injection administered. SEE MAR/worklist. Tolerated well. Safe exit of hospital per wc/signifcant other. Will return 12/06/23 at 1000 a.m. for next month's injection.
== END 2023-11-01 10:12 | disposition home or self-care (01) ==
PROVIDERS: PCP Internal Medicine; Visit Provider Internal Medicine
DX: E53.8 Deficiency of other specified B group vitamins (principal)
CPT/HCPCS: 96372; J3420

== ENCOUNTER 2023-11-29 10:24 | Outpatient (CLI) | payer MEDICARE, SELFPAY ==
--- NOTE | ~2023-11-29 | XR_ITS ---
Clinical Indication: Heart failure, shortness of breath PA and lateral views of the chest: Comparison: 08/13/2022 Findings: There is mild bibasilar pulmonary edema with small pleural effusions.. Cardiomediastinal s ilhouette is stable, status post CABG with pacemaker device. Bones and soft tissues are unremarkable. Impression: Mild bibasilar pulmonary edema with small pleural effusions. Stable cardiac valve, status post CABG with pacemaker device. Reviewed, dictated and finalized at location . Impression: Mild bibasilar pulmonary edema with small pleural effusions. Stable cardiac valve, status post CABG with pacemaker device.
[2023-11-29 10:43] LABS: Hematocrit 30.6 % (37.0-46.0); Hemoglobin 10.5 g/dL (12.4-15.3); Mean Corpuscular HGB Conc 34.3 g/dL (32-36); Mean Corpuscular Hemoglobin 33.4 pg (27.0-31.0); Mean Corpuscular Volume 97.5 fL (78.0-102.0); Platelet Count Result 121 K/mm3 (150-420); Red Blood Count 3.14 M/mm3 (4.70-6.10); Red Cell Distribution Width 14.8 % (11.6-14.4); White Blood Count 4.7 K/mm3 (4.8-10.8)
[2023-11-29 11:08] LABS: Anion Gap 5 mmol/L (4-12); Blood Urea Nitrogen 89 mg/dL (7-18); Calcium 9.4 mg/dL (8.5-10.1); Carbon Dioxide 30 mmol/L (21-32); Chloride 97 mmol/L (98-108); Estimated Glomerular Filt Rate 31; Glucose 98 mg/dL (70-99); NT Pro B Type Natriuretic Pept 7746 pg/mL (0-450); Osmolality Calculated 301 mOsm/kg (285-295); Potassium 4.1 mmol/L (3.5-5.1); Sodium 132 mmol/L (136-145)
== END 2023-11-29 10:25 | disposition home or self-care (01) ==
LOC: CHSLAB 10:28
PROVIDERS: PCP Internal Medicine; Visit Provider Nurse Practitioner Family
DX: I50.9 Heart failure, unspecified (principal); R06.02 Shortness of breath; J81.1 Chronic pulmonary edema; Z95.1 Presence of aortocoronary bypass graft
CPT/HCPCS: 36415; 71046; 80048; 83880; 85027

== ENCOUNTER 2023-12-02 09:14 | Outpatient (CLI) | payer MEDICARE, SELFPAY ==
[2023-12-02 10:21] LABS: Anion Gap 10 mmol/L (4-12); Blood Urea Nitrogen 85 mg/dL (7-18); Calcium 9.3 mg/dL (8.5-10.1); Carbon Dioxide 28 mmol/L (21-32); Chloride 96 mmol/L (98-108); Estimated Glomerular Filt Rate 29; Glucose 101 mg/dL (70-99); NT Pro B Type Natriuretic Pept 6542 pg/mL (0-450); Osmolality Calculated 303 mOsm/kg (285-295); Potassium 4.5 mmol/L (3.5-5.1); Sodium 134 mmol/L (136-145)
== END 2023-12-02 09:15 | disposition home or self-care (01) ==
PROVIDERS: PCP Internal Medicine; Visit Provider Internal Medicine
DX: I50.9 Heart failure, unspecified (principal); R06.02 Shortness of breath
CPT/HCPCS: 36415; 80048; 83880

== ENCOUNTER 2023-12-05 12:37 | Outpatient (CLI) | payer MEDICARE, SELFPAY ==
[2023-12-06 18:22] LABS: Anion Gap 8 mmol/L (4-12); Blood Urea Nitrogen 86 mg/dL (7-18); Calcium 8.9 mg/dL (8.5-10.1); Carbon Dioxide 28 mmol/L (21-32); Chloride 99 mmol/L (98-108); Estimated Glomerular Filt Rate 29; Glucose 104 mg/dL (70-99); NT Pro B Type Natriuretic Pept 8001 pg/mL (0-450); Osmolality Calculated 306 mOsm/kg (285-295); Potassium 4.6 mmol/L (3.5-5.1); Sodium 135 mmol/L (136-145)
== END 2023-12-05 12:38 | disposition home or self-care (01) ==
PROVIDERS: PCP Internal Medicine; Visit Provider Nurse Practitioner Family
DX: I48.19 Other persistent atrial fibrillation (principal); Z79.01 Long term (current) use of anticoagulants; R60.9 Edema, unspecified; I50.9 Heart failure, unspecified
CPT/HCPCS: 36415; 80048; 83880

== ENCOUNTER 2023-12-06 11:23 | Outpatient (CLI) | payer MEDICARE, SELFPAY ==
[2023-12-06 11:45] VITALS: BP 113/63; PULSE 68; RESP 14; TEMP 36.4; O2SAT 97; BMI 33.1
[2023-12-06] MEDS: CYANOCOBALAMIN INJ 1,000 MCG/ML VIAL 1000 MCG IM (11:45)
--- NOTE | 2023-12-06 13:12 | PC.NURSE ---
Patient tolerated Vitamin B12 injection well. see MAR/care notes.
== END 2023-12-06 11:24 | disposition home or self-care (01) ==
PROVIDERS: PCP Internal Medicine; Visit Provider Internal Medicine
DX: E53.8 Deficiency of other specified B group vitamins (principal)
CPT/HCPCS: 96372; J3420

== ENCOUNTER 2023-12-09 11:42 | Outpatient (CLI) | payer MEDICARE, SELFPAY ==
[2023-12-09 14:04] LABS: Anion Gap 5 mmol/L (4-12); Blood Urea Nitrogen 88 mg/dL (7-18); Calcium 8.8 mg/dL (8.5-10.1); Carbon Dioxide 31 mmol/L (21-32); Chloride 98 mmol/L (98-108); Estimated Glomerular Filt Rate 26; Glucose 90 mg/dL (70-99); NT Pro B Type Natriuretic Pept 7299 pg/mL (0-450); Osmolality Calculated 304 mOsm/kg (285-295); Potassium 5.2 mmol/L (3.5-5.1); Sodium 134 mmol/L (136-145)
== END 2023-12-09 11:43 | disposition home or self-care (01) ==
LOC: CHSLAB 11:46
PROVIDERS: PCP Nurse Practitioner Family; Visit Provider Nurse Practitioner Family
DX: R60.9 Edema, unspecified (principal); I50.9 Heart failure, unspecified
CPT/HCPCS: 36415; 80048; 83880

== ENCOUNTER 2023-12-23 11:50 | Emergency (ER) | payer MEDICARE, SELFPAY ==
[2023-12-23 11:50] VITALS: BP 99/69; PULSE 97; RESP 16; TEMP 36.5; O2SAT 97
--- NOTE | 2023-12-23 11:59 | ED.LOWEXIN ---
HPI - Extremity Injury (Lower) General Chief Complaint: Extremity Injury, Lower Stated Complaint: LLL ischemia Time Seen by Provider: 12/23/23 11:52 Source: patient Mode of arrival: ambulatory Limitations: no limitations History of Present Illness HPI Narrative: 78 year old male is sent to the Emergency Department from Dr. Rice office for redness to left distal foot and black toe. Has been going on for several weeks. Patient sees Dr. Fuentes in [place] and has had several toes amputated already. No fever. Has pain. Onset (ago): week(s) (several) Severity: moderate Relieving factors: nothing Exacerbating factors: nothing Related Data Home Medications Medication Instructions Recorded Confirmed allopurinol 100 mg tablet 100 mg PO BID 08/26/20 12/23/23 dofetilide 500 mcg capsule 500 mcg PO Q12H 08/26/20 12/23/23 (Tikosyn) ferrous fumarate 325 mg (106 mg 325 mg PO DAILY 08/26/20 12/23/23 iron) tablet gabapentin 800 mg tablet 1,600 mg PO BID 08/26/20 12/23/23 magnesium oxide 400 mg (241.3 mg 400 mg PO DAILY 08/26/20 12/23/23 magnesium) tablet (MagOx) pantoprazole 40 mg tablet,delayed 40 mg PO QAM 08/26/20 12/23/23 release pravastatin 40 mg tablet 40 mg PO HS 08/26/20 12/23/23 spironolactone 25 mg tablet 25 mg PO BID 05/03/21 12/23/23 folic acid 1 mg tablet 1 mg PO DAILY 08/13/22 12/23/23 furosemide 40 mg tablet 80 mg PO BIDWM 08/13/22 12/23/23 metoprolol succinate 25 mg 37.5 mg PO DAILY 08/13/22 12/23/23 tablet,extended release 24 hr potassium chloride 10 mEq 10 meq PO DAILY 08/13/22 12/23/23 tablet,extended release(part/cryst) (Klor-Con M) thiamine HCl (vitamin B1) 100 mg 100 mg PO DAILY 08/13/22 12/23/23 tablet apixaban 5 mg tablet (Eliquis) 5 mg PO BID 07/25/23 12/23/23 Allergies Allergy/AdvReac Type Severity Reaction Status Date / Time No Known Allergies Allergy Verified 10/12/22 09:07 Review of Systems Review of Systems: All systems reviewed & are unremarkable except as noted in HPI and below Constitutional: Constitutional: Reports as per HPI, Denies chills and Denies fever(s) Eyes: Eyes: Reports as per HPI ENT: Reports system reviewed and no additional complaints, except as documented Cardiovascular: Cardiovascular: Reports as per HPI and Denies chest pain Respiratory: Respiratory: Reports as per HPI and Denies dyspnea Gastrointestinal: Gastrointestinal: Reports as per HPI Genitourinary: Genitourinary: Reports no additional male genitourinary complaints Musculoskeletal: Musculoskeletal: Reports no additional musculoskeletal complaints Comments: redness distal left foot with black discoloration 2nd toe Integumentary/Breasts: Skin/Breast: Reports system reviewed and no additional complaints, except as docu Neurologic: Reports system reviewed and no additional complaints, except as documented Psychiatric: Psychiatric: Reports no additional psychiatric complaints Endocrine: Endocrine: Reports no additional endocrine complaints Hematologic/Lymphatic: Hematologic/Lymphatic: Reports no additional hematologic/lymphatic complaints Allergic/Immunologic: Allergic/Immunologic: Reports no additional allergic/immunologic complaints PMFSH Past Medical History Medical History Atrial fibrillation Atrial fibrillation with RVR Congestive heart failure Coronary artery disease GERD (gastroesophageal reflux disease) GERD (gastroesophageal reflux disease) Gout Hyperlipidemia Surgical History Surgical History H/O heart bypass surgery x4 Social History Social History Smoking packs per day: 3 Smoking cigarettes per day: 60.0 Years smoked: 35 Smoking pack-years: 105.00 Smoking status: Former smoker Tobacco type: cigarettes Second hand tobacco smoke exposure: Yes Smoking end date: 05/13/93 Elvis
[2023-12-23 12:40] VITALS: BP 99/69; PULSE 97; RESP 16; TEMP 36.5; O2SAT 97
== END 2023-12-23 12:40 | disposition home or self-care (01) ==
PROVIDERS: Emergency Provider Emergency Medicine; PCP Internal Medicine
DX: I73.9 Peripheral vascular disease, unspecified (principal); E78.5 Hyperlipidemia, unspecified; I48.91 Unspecified atrial fibrillation; I50.9 Heart failure, unspecified; I25.10 Atherosclerotic heart disease of native coronary artery without angina pectoris; Z87.891 Personal history of nicotine dependence; Z79.899 Other long term (current) drug therapy; Z79.01 Long term (current) use of anticoagulants
CPT/HCPCS: 99283

== ENCOUNTER 2023-12-25 03:02 | Inpatient (IN) | payer MEDICARE, SELFPAY ==
[2023-12-25] VITALS (44 sets, daily range): BP systolic 71–244; BP diastolic 46–210; PULSE 73–97; RESP 13–27; TEMP 36.1–36.7; O2SAT 95–100; BMI 30.3; BMI 29.4
--- NOTE | ~2023-12-25 | XR_ITS ---
EXAMINATION: XR foot LT 2V DATE: 12/25/2023 04:20 INDICATION: Left foot gangrene. TECHNIQUE: 2 views of left foot were obtained. COMPARISON: None. FINDINGS: There is transmetatarsal amputation of the third-fifth rays. No fracture. There is mild ost eoarthritis of some of the metatarsophalangeal joints, interphalangeal joints, and midfoot joints. Th ere are enthesophytes at the posterior and plantar aspects of calcaneal tuberosity. There is soft tis lawson swelling of the foot. IMPRESSION: 1. No specific evidence of osteomyelitis. Reviewed, dictated and finalized at location A.
--- NOTE | ~2023-12-25 | CT_ITS ---
EXAMINATION: CT foot LT wo con DATE: 12/26/2023 17:52 INDICATION: Left foot ulcer. TECHNIQUE: Computed tomography (CT) of the left foot was performed without intravenous contrast. Auto mated exposure control and iterative reconstruction technique were employed. The dose-length product was 476.50 mGy-cm. COMPARISON: Left foot radiographs 12/25/2023 FINDINGS: There is transmetatarsal amputation of the third-fifth rays. There is a nondisplaced fractu re of medial base of second proximal phalanx. There is mild osteoarthritis of the interphalangeal xiang nts. There are enthesophytes at the posterior and plantar aspects of calcaneal tuberosity. There is s evere fatty atrophy of musculature. There is soft tissue swelling of the dorsal and lateral aspects o f the foot. IMPRESSION: 1. Nondisplaced fracture of medial aspect of base of second proximal phalanx. 2. No specific evidence of osteomyelitis. Reviewed, dictated and finalized at location A.
--- NOTE | ~2023-12-25 | CT_ITS ---
EXAMINATION: CT brain wo con DATE: 12/25/2023 04:53 INDICATION: Altered mental status. TECHNIQUE: Computed tomography (CT) of the head was performed without intravenous contrast. The mA wa s adjusted according to patient size. Iterative reconstruction technique was employed. The dose-lengt h product was 605.33 mGy-cm. COMPARISON: Head CT 08/13/2022 FINDINGS: There are old infarcts in the right basal ganglia. There is an old infarct in the right cer ebellum. There are scattered areas of low attenuation in the cerebral white matter, which is within n ormal limits for the patient's age. There is no intracranial hemorrhage, acute infarction, or abnorma l intracranial mass lesion. There is an old infarct in the priscila. There is an old infarct in the right thalamus. The ventricles are normal in size. There is minimal mucosal thickening in the paranasal si nuses. There are likely changes of ocular lens replacement surgeries. The mastoid air cells are ranjana l. IMPRESSION: 1. Old infarcts in the right cerebellum, priscila, right thalamus, and right basal ganglia. Reviewed, dictated and finalized at location A.
--- NOTE | ~2023-12-25 | CT_ITS ---
EXAMINATION: CT brain wo con DATE: 12/27/2023 23:42 INDICATION: Stroke. TECHNIQUE: Computed tomography (CT) of the head was performed without intravenous contrast. The mA wa s adjusted according to patient size. Iterative reconstruction technique was employed. The dose-lengt h product was 605.33 mGy-cm. COMPARISON: Head CT 12/25/2023 FINDINGS: There are old infarcts in the right cerebellum, priscila, right thalamus, and right basal gangl ia. There is no intracranial hemorrhage, acute infarction, or abnormal intracranial mass lesion. The ventricles are normal in size. There are likely changes of ocular lens replacement surgeries. There i s mild mucosal thickening in the paranasal sinuses. The mastoid air cells are normal. IMPRESSION: 1. Old infarcts in the right cerebellum, priscila and right thalamus, and right basal ganglia. Reviewed, dictated and finalized at location A. IMPRESSION: 1. Old infarcts in the right cerebellum, priscila and right thalamus, and right bas al ganglia.
--- NOTE | ~2023-12-25 | XR_ITS ---
EXAMINATION: XR chest 1V portable DATE: 12/25/2023 04:20 INDICATION: Sepsis. Hypoxia. TECHNIQUE: A single frontal view of the chest was obtained. COMPARISON: Chest 2 views 11/29/2023 FINDINGS: There are airspace opacities in the lower lung zones. There is a diffuse interstitial patte rn, consistent with mild pulmonary edema. There are small pleural effusions. No pneumothorax. Cardiom egaly is noted. Median sternotomy wires and mediastinal surgical clips are seen, likely from prior co ronary artery bypass grafting. There is a left chest wall pacer with leads in the right atrium and ri ght ventricle. There is a lead in the coronary sinus. IMPRESSION: 1. Stable airspace opacities in the lower lung zones, consistent with atelectasis versus pneumonia. 2. Mild pulmonary edema. 3. Stable small pleural effusions. 4. Cardiomegaly. Reviewed, dictated and finalized at location A. IMPRESSION: 1. Stable airspace opacities in the lower lung zones, consistent with atelectas is versus pneumonia. 2. Mild pulmonary edema. 3. Stable small pleural effusions. 4. Cardiomegaly.
--- NOTE | 2023-12-25 03:05 | ECG_ITS ---
Test Date: 2023-12-25 03:07:23 Measurements Intervals Wellman Rate: 81 P: 0 OK: 0 QRS: 152 QRSD: 162 T: -25 QT: 433 QTc: 505 Interpretive Statements ELECTRONIC VENTRICULAR PACEMAKER ABNORMAL RHYTHM ECG No previous ECG available for comparison Electronically Signed On 12-26-2023 07:27:45 CDT by Franklin Palomino M.D.
[2023-12-25 03:45] LABS: Basophils Percent Auto 0.5 % (0.2-1.2); Eosinophils Absolute Auto 0.2 K/mm3 (0-0.3); Eosinophils Percent Auto 2.4 % (0-4.4); Hematocrit 31.7 % (42.0-52.0); Hemoglobin 10.2 g/dL (14.0-18.0); Immature Granulocyte Absolute 0.06 K/mm3 (0.00-0.031); Immature Granulocyte Percent A 0.8 % (0-0.5); Lymphocytes Percent Auto 10.9 % (18.3-44.2); Mean Corpuscular HGB Conc 32.2 g/dl (32-36); Mean Corpuscular Volume 102.6 fl (80-100); Mean Platelet Volume 11.5 fl (7.4-10.4); Monocytes Absolute Auto 0.6 K/mm3 (0.1-0.6); Monocytes Percent Auto 8.7 % (2.6-8.5); Neutrophils Absolute Auto 5.7 K/mm3 (1.3-6.7); Neutrophils Percent Auto 76.7 % (45.5-73.1); Platelet Count Result 236 k/mm3 (150-375); Red Blood Count 3.09 M/mm3 (4.6-6.20); Red Cell Distribution Width 14.9 % (11.5-14.5); White Blood Count 7.4 K/mm3 (4.5-10.0)
--- NOTE | 2023-12-25 03:52 | ED.AMS ---
HPI - Altered Mental Status General Chief Complaint: Altered Mental Status Stated Complaint: AMS since last night, recent gangrene Time Seen by Provider: 12/25/23 03:26 Source: patient Mode of arrival: EMS Limitations: language barrier History of Present Illness HPI narrative: Patient presents with report of AMS since last night. BY report patient recently diagnosed with gangrene in L foot 2 weeks ago. Reportely SpO2 in the low to mid 80s on room air. Placed on 4L NC by EMS with improvement to saturations in the low 90s. He was initially hypotensive with SBP 80 then 90s with MAP 65 after 500cc IV fluids by EMS. Hx cva. Related Data Home Medications Medication Instructions Recorded Confirmed allopurinol 100 mg tablet 100 mg PO Q12H 08/26/20 12/25/23 ferrous fumarate 325 mg (106 mg 325 mg PO DAILY 08/26/20 12/25/23 iron) tablet gabapentin 800 mg tablet 1,600 mg PO Q12H 08/26/20 12/25/23 magnesium oxide 400 mg (241.3 mg 400 mg PO Q8H 08/26/20 12/25/23 magnesium) tablet (MagOx) pantoprazole 40 mg tablet,delayed 40 mg PO QAM 08/26/20 12/25/23 release pravastatin 40 mg tablet 40 mg PO HS 08/26/20 12/25/23 spironolactone 25 mg tablet 25 mg PO DAILY 05/03/21 12/25/23 folic acid 1 mg tablet 1 mg PO DAILY 08/13/22 12/25/23 furosemide 40 mg tablet 80 mg PO Q12H 08/13/22 12/25/23 metoprolol succinate 25 mg 50 mg PO DAILY 08/13/22 12/25/23 tablet,extended release 24 hr thiamine HCl (vitamin B1) 100 mg 100 mg PO DAILY 08/13/22 12/25/23 tablet apixaban 5 mg tablet (Eliquis) 5 mg PO Q12H 07/25/23 12/25/23 cefdinir 300 mg capsule 300 mg PO Q12H 12/25/23 12/25/23 colchicine 0.6 mg tablet 0.6 mg PO DAILY 12/25/23 12/25/23 doxycycline monohydrate 100 mg 100 mg PO Q12H 12/25/23 12/25/23 capsule multivit with minerals-iron 18 1 tablet PO DAILY 12/25/23 12/25/23 mg-folic ac 400 mcg-vit K 25 mcg tablet (Adults Multivitamin) sacubitril 24 mg-valsartan 26 mg 1 tablet PO Q12H 12/25/23 12/25/23 tablet (Entresto) vericiguat 2.5 mg tablet (Verquvo) 2.5 mg PO DAILY 12/25/23 12/25/23 Allergies Allergy/AdvReac Type Severity Reaction Status Date / Time No Known Allergies Allergy Verified 10/12/22 09:07 [facility] Past Medical History Medical History Amputation of toe of left foot Atrial fibrillation Atrial fibrillation with RVR Congestive heart failure Coronary artery disease GERD (gastroesophageal reflux disease) Gout Hx of completed stroke Hyperlipidemia Surgical History Surgical History H/O heart bypass surgery x4 Family History Family History Father Heart disease Mother Heart disease Sibling Heart disease Social History Social History Smoking packs per day: 2 Smoking cigarettes per day: 40.0 Years smoked: 30 Smoking pack-years: 60.00 Smoking status: Former smoker Tobacco type: cigarettes Second hand tobacco smoke exposure: Yes Smoking end date: 05/13/93 Alcohol intake: former Drinks per week: 0 Substance use: never Substance use type: does not use Last use: yesterday Do You Feel Safe in your Home?: Yes Lack of Transportation: No Lack of Food: Never True Current Housing: I Have Housing Concerned About Future Housing: No Difficulty Paying Gas/Electric Bills: No Difficulty Paying for Meds: No Currently Unemployed: No Education: Decline to Answer Difficulty w/ Childcare or Family Care: No Living arrangements: with family Occupation/Education: retired Gender identity (if verbalized by the patient): Male Spiritual care concerns: No Exam Narrative: GENERAL: well-nourished, and in no acute distress. HEAD: Normocephalic, atraumatic. EYES: Non injected, non icteric ENT: Nares clear, no rhinorrhea or epistaxis. NECK: Supple. CHES
[2023-12-25 03:57] LABS: Alanine Aminotransferase 14 U/L (6-50); Albumin Level 3.4 g/dL (3.5-5.1); Alkaline Phosphatase 114 U/L (38-126); Anion Gap 11 mmol/L (4-12); Aspartate Amino Transferase 29 U/L (17-59); Blood Urea Nitrogen 91 mg/dL (9-20); Calcium 9.4 mg/dL (8.4-10.2); Carbon Dioxide 31 mmol/L (22-30); Chloride 94 mmol/L (98-107); Estimated CRCL calculation 17 ml/min; Estimated Glomerular Filt Rate 17; Glucose 104 mg/dL (65-110); INR 2.6; Lactic Acid Reflex 1.2 mmol/L (0.7-2.0); Potassium 3.9 mmol/L (3.4-5.0); Prothrombin Time 28.1 Seconds (11.1-14.7); Sodium 136 mmol/L (137-145)
[2023-12-25 03:58] LABS: Partial Thromboplastin Time 51.5 Seconds (22.3-36.8)
[2023-12-25 04:04] LABS: Add Urine Microscopic? YES; Appearance Urine Clear (Clear); Bacteria Urine None Seen /hpf; Bilirubin Urine 1+ (Negative); Blood Urine Negative (Negative); Color Urine Dark Yellow (Yellow); Glucose Urine UA Negative (Negative); Ketones Urine Trace mg/dL (Negative); Leukocyte Esterase Ur Trace LEU/UL (Negative); Need Manual Microscopic Reviewed; Nitrate Urine Negative (Negative); Protein Urine Negative (Negative); RBC Urine 0-2 /hpf (0-2); Specific Grav Ur 1.019 (1.001-1.035); Squamous Epithelial Cell Urine None Seen /hpf (Few); Urobilinogen Urine 0.2 mg/dL (<2.0); WBC Urine 0-5 /hpf (0-3)
[2023-12-25] MEDS: CEFEPIME 1 GM/NS 50 ML 1 GM/50 ML BAG IVPB (04:04)
[2023-12-25] MEDS: SODIUM CHLORIDE 0.9% IV 500 ML 999 ML IV CONT (04:04)
[2023-12-25 04:24] LABS: Alveolar/Arterial O2 Gradient 13.5 mmHg; Base Excess ABG 0.8 mEq/l (+/-2.0); Fractional Inspired Oxygen 28 %; HCO3 ABG 26.4 mEq/l (22.0-26.0); Oxygen Saturation ABG 98.5 % (95.0-100.0); Oxyhemoglobin 97.1 % THb (90.0-100.0); PCO2 ABG 46.5 mmHg (35.0-45.0); PO2 ABG 131.3 mmHg (80.0-100.0); PO2 FiO2 Ratio Arterial Blood 4.69 %; Total Hemoglobin 10.1 g/dL (12.0-18.0); pH ABG 7.372 (7.350-7.450)
[2023-12-25 04:26] LABS: Device NASAL CANNULA; Modified Allen's Test Pass; Site Drawn RIGHT RADIAL
[2023-12-25 04:28] LABS: NT Pro B Type Natriuretic Pept 16500 pg/mL (19.9-100)
[2023-12-25 04:44] LABS: D Dimer 0.31 ug/mL (<0.48)
--- NOTE | 2023-12-25 05:11 | PC.NURSE ---
EDP Dr. Viveros aware of pt BP readings. Provider at bedside with ultrasound.
[2023-12-25] MEDS: VANCOMYCIN 1,250 MG/NS 250 ML 1,250 MG/250 ML BAG 166.67 MG IVPB (05:37)
[2023-12-25] MEDS: FUROSEMIDE INJ 40 MG/4 ML VIAL IV PUSH (05:42)
[2023-12-25 07:46] LABS: Influenza A QL RT-PCR Negative (Negative); Influenza B QL RT-PCR Negative (Negative); RSV RNA, RT-PCR Negative (Negative); SARS-CoV-2 RNA PCR Negative (Negative)
--- NOTE | 2023-12-25 12:24 | PM.IMHP ---
H&P: HPI History of Present Illness Date/Time: 12/25/23 12:24 Chief Complaint: AMS Narrative: This is a 78-year-old male with a significant past medical history of Atrial fibrillation, CHF, coronary artery disease, GERD, gout, hyperlipidemia, CABG x4v, alcohol abuse, former smoker who presented to the hospital with altered mental status. Patient is not the best historian and most of history of presenting illness was obtained from the EMR. Workup in the hospital included a head CT which showed old infarcts in the right cerebellum, priscila, right thalamus, and right basal ganglia. Left foot x-ray showing soft tissue swelling of the foot, no specific evidence of osteomyelitis. Chest x-ray showed stable airspace opacities in the lower lung zones consistent with atelectasis versus pneumonia, mild pulmonary edema, small but stable pleural effusions, cardiomegaly. Initial labs showed a normal white blood cell count of 7.4, hemoglobin 10.2, INR 2.6, D-dimer was normal at 0.31, sodium 136, chloride 94, creatinine 3.5, EGFR 17, lactic acid was 1.2, liver enzymes were normal, proBNP [id number]. UA showed trace urine ketone, 1+ urine bili, trace leukocyte, otherwise normal. Respiratory panel was obtained and was negative for influenza a and B, RSV, COVID. Patient was given 1 L of normal saline, cefepime, vancomycin, and 40 mg IV push Lasix in the ED. Review of Systems Review of Systems: ROS unobtainable: Yes unobtainable due to mental status PMFSH Past Medical History Medical History Amputation of toe of left foot Atrial fibrillation Atrial fibrillation with RVR Congestive heart failure Coronary artery disease GERD (gastroesophageal reflux disease) GERD (gastroesophageal reflux disease) Gout Hyperlipidemia Surgical History Surgical History H/O heart bypass surgery x4 Family History Family History Father Heart disease Mother Heart disease Sibling Heart disease Social History Social History Smoking packs per day: 2 Smoking cigarettes per day: 40.0 Years smoked: 30 Smoking pack-years: 60.00 Smoking status: Former smoker Tobacco type: cigarettes Second hand tobacco smoke exposure: Yes Smoking end date: 05/13/93 Alcohol intake: former Drinks per week: 0 Substance use: never Substance use type: does not use Last use: yesterday Do You Feel Safe in your Home?: Yes Lack of Transportation: No Lack of Food: Never True Current Housing: I Have Housing Concerned About Future Housing: No Difficulty Paying Gas/Electric Bills: No Difficulty Paying for Meds: No Currently Unemployed: No Education: Decline to Answer Difficulty w/ Childcare or Family Care: No Living arrangements: with family Occupation/Education: retired Gender identity (if verbalized by the patient): Male Spiritual care concerns: No Meds Home Medications and Allergies Home Medications Medication Instructions Recorded Confirmed Type allopurinol 100 mg tablet 100 mg PO Q12H 08/26/20 12/25/23 History ferrous fumarate 325 mg (106 mg 325 mg PO DAILY 08/26/20 12/25/23 History iron) tablet gabapentin 800 mg tablet 1,600 mg PO Q12H 08/26/20 12/25/23 History magnesium oxide 400 mg (241.3 mg 400 mg PO Q8H 08/26/20 12/25/23 History magnesium) tablet (MagOx) pantoprazole 40 mg tablet,delayed 40 mg PO QAM 08/26/20 12/25/23 History release pravastatin 40 mg tablet 40 mg PO HS 08/26/20 12/25/23 History spironolactone 25 mg tablet 25 mg PO DAILY 05/03/21 12/25/23 History sacubitril 49 mg-valsartan 51 mg 1 tablet PO Q12HR #60 tabs 05/05/21 12/25/23 Rx tablet (Entresto) folic acid 1 mg tablet 1 mg PO DAILY 08/13/22 12/25/23 History furosemide 40 mg tablet 80 mg PO Q12H 08/13/22 12/25/23 History
[2023-12-25 13:36] LABS: CRP 7.2 mg/dL (<1.0)
[2023-12-25 13:47] LABS: Procalcitonin 0.3 ng/mL
--- NOTE | 2023-12-25 15:15 | ADMGEN ---
This patient, Onur Ramos, was admitted to IMU Room 204-01. Patient/family oriented to hospital policies and general routines including ID bracelet, bed and alarms, visiting hours, pain management, procedures, bathroom and other care routines, personal items, smoking policy, room service/diet, and visiting hours. Information on how to activate the Rapid Response Team has been discussed. Patient/Family are encouraged to report perceived risks to care and to ask questions if they do not understand what they are told or what they should do.
[2023-12-25 17:22] LABS: Erythrocyte Sedimentation Rate 139 mm/hr (0-20)
[2023-12-25 17:59] LABS: MRSA (PCR) NOT DETECTED (NOT DETECTE)
[2023-12-25] MEDS: PRAVASTATIN SODIUM 20 MG TABLET 40 MG PO (21:29)
[2023-12-25] MEDS: MAGNESIUM OXIDE 400 MG TABLET PO (21:29)
[2023-12-25] MEDS: GABAPENTIN 400 MG CAPSULE 1600 MG PO (21:29)
[2023-12-25] MEDS: APIXABAN 5 MG TABLET PO (21:29)
[2023-12-25] MEDS: allopurinoL 100 MG TABLET PO (21:29)
[2023-12-26] VITALS (18 sets, daily range): BP systolic 98–118; BP diastolic 44–83; PULSE 58–100; RESP 18–22; TEMP 36–36.5; O2SAT 90–100; BMI 29.1
[2023-12-26 01:26] LABS: IFOB Positive Control Positive; Immunochemical Fecal Occult Bl Negative (N)
[2023-12-26] MEDS: MAGNESIUM OXIDE 400 MG TABLET PO ×3 (05:29→20:26)
[2023-12-26 05:36] LABS: Basophils Percent Auto 0.5 % (0.2-1.2); Eosinophils Absolute Auto 0.1 K/mm3 (0-0.3); Eosinophils Percent Auto 1.1 % (0-4.4); Hematocrit 30.1 % (42.0-52.0); Hemoglobin 9.8 g/dL (14.0-18.0); Immature Granulocyte Absolute 0.07 K/mm3 (0.00-0.031); Immature Granulocyte Percent A 0.8 % (0-0.5); Lymphocytes Absolute Auto 0.59 K/mm3 (0.9-3.2); Lymphocytes Percent Auto 6.7 % (18.3-44.2); Mean Corpuscular HGB Conc 32.6 g/dl (32-36); Mean Corpuscular Hemoglobin 33.3 pg (26-34); Mean Corpuscular Volume 102.4 fl (80-100); Mean Platelet Volume 11.5 fl (7.4-10.4); Monocytes Absolute Auto 0.9 K/mm3 (0.1-0.6); Monocytes Percent Auto 10.3 % (2.6-8.5); Neutrophils Absolute Auto 7.1 K/mm3 (1.3-6.7); Neutrophils Percent Auto 80.6 % (45.5-73.1); Platelet Count Result 225 k/mm3 (150-375); Red Blood Count 2.94 M/mm3 (4.6-6.20); Red Cell Distribution Width 14.9 % (11.5-14.5); White Blood Count 8.8 K/mm3 (4.5-10.0)
[2023-12-26 05:52] LABS: Alanine Aminotransferase 12 U/L (6-50); Albumin Level 3.2 g/dL (3.5-5.1); Alkaline Phosphatase 116 U/L (38-126); Anion Gap 9 mmol/L (4-12); Aspartate Amino Transferase 27 U/L (17-59); Bilirubin,Total 1.2 mg/dL (0.2-1.3); Blood Urea Nitrogen 93 mg/dL (9-20); Calcium 9.3 mg/dL (8.4-10.2); Carbon Dioxide 29 mmol/L (22-30); Chloride 99 mmol/L (98-107); Estimated CRCL calculation 22 ml/min; Estimated Glomerular Filt Rate 25; Glucose 103 mg/dL (65-110); Sodium 137 mmol/L (137-145)
[2023-12-26 06:07] LABS: Vancomycin Random 10.7 ug/mL (10-20)
[2023-12-26] MEDS: VANCOMYCIN 1,000 MG/NS 250 ML 1,000 MG/250 ML BAG 250 MG IVPB (09:06)
[2023-12-26] MEDS: FOLIC ACID 1 MG TABLET PO (09:10)
[2023-12-26] MEDS: MULTIVITAMINS /C LUTEIN (CENTRUM SILVER) TABLET *BKC 1 TAB PO (09:10)
[2023-12-26] MEDS: APIXABAN 5 MG TABLET PO ×2 (09:10→20:27)
[2023-12-26] MEDS: AZITHROMYCIN 250 MG TABLET 500 MG PO (09:10)
[2023-12-26] MEDS: PANTOPRAZOLE 40 MG TABLET PO (09:10)
[2023-12-26] MEDS: GABAPENTIN 400 MG CAPSULE 1600 MG PO ×2 (09:10→20:27)
[2023-12-26] MEDS: allopurinoL 100 MG TABLET PO ×2 (09:10→20:26)
[2023-12-26] MEDS: THIAMINE HCL 100 MG TABLET PO (09:11)
[2023-12-26] MEDS: COLCHICINE 0.6 MG TABLET PO (09:11)
[2023-12-26] MEDS: METOPROLOL SUCCINATE EXT REL 50 MG TABCR PO (09:11)
[2023-12-26] MEDS: SACUBITRIL/VALSARTAN 24-26 MG TABLET 1 TAB PO ×2 (11:22→20:26)
[2023-12-26] MEDS: CEFEPIME 1 GM/NS 50 ML 1 GM/50 ML BAG IVPB (13:07)
--- NOTE | 2023-12-26 14:50 | PM.CNGS ---
Assessment and Plan Assessment and plan (1) Wound, open, foot: Code(s): S91.309A - Unspecified open wound, unspecified foot, initial encounter Status: Acute Assessment and Plan: long discussion with patient and regarding open foot wound, this seems to be more chronic over though there does seem to be some cellulitis and infection, they would like to try conservative therapy with IV antibiotics and local wound care for now, with plans to follow-up with their surgeon for further operative intervention, I did discuss with the patient that he would likely need completion transmetatarsal amputation (2) Sepsis: Code(s): A41.9 - Sepsis, unspecified organism Status: Acute Assessment and Plan: likely secondary to pneumonia as foot wound seems contained and chronic, continue antibiotics per primary team (3) Congestive heart failure: Code(s): I50.9 - Heart failure, unspecified Status: Acute Assessment and Plan: stable, management per primary (4) Acute respiratory failure with hypoxia: Code(s): J96.01 - Acute respiratory failure with hypoxia Status: Acute Assessment and Plan: stable, management per primary History of Present Illness Consult details Consult date: 12/26/23 Reason for consult: wound care Requesting physician: Tomy Groves MD Narrative: The patient is a 78-year-old male with multiple medical issues presenting to the hospital with sepsis secondary to pneumonia. The patient also has noted CHF exacerbation, acute renal failure. The patient is noted to cellulitis in his left foot. The patient is status post amputations of the 3rd through 5th digit on foot. He reports over the last few weeks he has noticed a wound on the dorsal aspect of his 2nd toe. He was supposed to follow up with his surgeon this week for further evaluation. Review of Systems Review of Systems: All systems reviewed & are unremarkable except as noted in HPI and below PMFSH Past Medical History Medical History Amputation of toe of left foot Atrial fibrillation Atrial fibrillation with RVR Congestive heart failure Coronary artery disease GERD (gastroesophageal reflux disease) GERD (gastroesophageal reflux disease) Gout Hyperlipidemia Surgical History Surgical History H/O heart bypass surgery x4 Family History Family History Father Heart disease Mother Heart disease Sibling Heart disease Social History Social History Smoking packs per day: 2 Smoking cigarettes per day: 40.0 Years smoked: 30 Smoking pack-years: 60.00 Smoking status: Former smoker Tobacco type: cigarettes Second hand tobacco smoke exposure: Yes Smoking end date: 05/13/93 Alcohol intake: former Drinks per week: 0 Substance use: never Substance use type: does not use Last use: yesterday Do You Feel Safe in your Home?: Yes Lack of Transportation: No Lack of Food: Never True Current Housing: I Have Housing Concerned About Future Housing: No Difficulty Paying Gas/Electric Bills: No Difficulty Paying for Meds: No Currently Unemployed: No Education: Decline to Answer Difficulty w/ Childcare or Family Care: No Living arrangements: with family Occupation/Education: retired Gender identity (if verbalized by the patient): Male Spiritual care concerns: No Meds Home Medications and Allergies Home Medications Medication Instructions Recorded Confirmed Type allopurinol 100 mg tablet 100 mg PO Q12H 08/26/20 12/25/23 History ferrous fumarate 325 mg (106 mg 325 mg PO DAILY 08/26/20 12/25/23 History iron) tablet gabapentin 800 mg tablet 1,600 mg PO Q12H 08/26/20 12/25/23 History magnesium oxide 400 mg (241.3 mg 400 mg PO
--- NOTE | 2023-12-26 18:34 | PM.IMPN ---
Progress Note: A&P Assessment and Plan (1) Sepsis: Code(s): A41.9 - Sepsis, unspecified organism Status: Acute (2) Acute respiratory failure with hypoxia: Code(s): J96.01 - Acute respiratory failure with hypoxia Status: Acute (3) Pneumonia: Qualifiers: Laterality: bilateral Lung location: unspecified part of lung Pneumonia type: due to unspecified organism Qualified Code(s): J18.9 - Pneumonia, unspecified organism Code(s): J18.9 - Pneumonia, unspecified organism Status: Acute (4) Congestive heart failure: Code(s): I50.9 - Heart failure, unspecified Status: Acute (5) Gangrene of left foot: Code(s): I96 - Gangrene, not elsewhere classified Status: Acute (6) ELSY (acute kidney injury): Code(s): N17.9 - Acute kidney failure, unspecified Status: Acute (7) Atrial fibrillation: Code(s): I48.91 - Unspecified atrial fibrillation Status: Chronic (8) GERD (gastroesophageal reflux disease): Code(s): K21.9 - Gastro-esophageal reflux disease without esophagitis Status: Chronic (9) Hyperlipidemia: Code(s): E78.5 - Hyperlipidemia, unspecified Status: Chronic Plan A 78-year-old male past medical history of atrial fibrillation congestive heart failure coronary artery disease GERD gout hyperlipidemia CABG x4 alcohol abuse former smoker to the hospital with altered mental status and low blood pressure. Past few days. Workup in the hospital showed head CT with will in the right cerebellum priscila right thalamus and right basal ganglia. Left foot x-ray shows soft tissue swelling of the foot with no evidence of osteomyelitis. Chest x-ray showed stable airspace opacities in the lower lung zones consistent with atelectasis versus pneumonia mild pulmonary edema small but stable pleural effusions and cardiomegaly. WBC normal at 7.4 hemoglobin at 10 point normal at 0.31. Sodium 136 chloride 94 creatinine of 3.5 EGFR 17 lactic acid was normal at 1.2. Liver enzymes were normal. ProBNP 62641. UA showed trace urine ketone 1+ urine bili trace leukocyte otherwise normal. Respiratory panel was obtained and was negative for influenza RSV and COVID. Patient received mycin. He also received IV push Lasix in the ED In the ED he was hypotensive. Oxygen saturation were adequate. Sepsis due to hypotension hypoxia tachypnea heart regular than 90. Received 1 L normal saline in the started on vancomycin and cefepime. Blood culture will be obtained. Acute hypoxic respiratory failure chest x-ray findings reviewed. Respiratory symptoms. Could be due to sepsis. Will stop azithromycin as he is unlikely to have pneumonia Left foot cellulitis Possible pneumonia however noted respiratory symptoms reported. Echo 09/15/2020 with mild to moderate reduced LV systolic function with ejection fraction of 40-45% right ventricular systolic function was normal biatrial enlargement echo has been reordered. Left foot gangrene and cellulitis will get CT foot care consulted. Will also consult General surgery as suggested. Foot CT came back nondisplaced fracture of medial aspect of base of 2nd proximal phalanx with no evidence. 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 Patient more alert. Blood pressure has improved. His been feeling sick since past few days. Review of Systems Review of Systems: All systems reviewed & are unremarkable except as noted in HPI and below Exam Narrative:
[2023-12-26] MEDS: HYDROcodone/acetaminophen (*CRX) 7.5-325 MG TABLET 1 TAB PO (20:25)
[2023-12-26] MEDS: PRAVASTATIN SODIUM 20 MG TABLET 40 MG PO (20:26)
[2023-12-27] VITALS (16 sets, daily range): BP systolic 93–116; BP diastolic 48–77; PULSE 85–96; RESP 18–26; TEMP 35.7–37; O2SAT 94–100
[2023-12-27 05:01] LABS: Basophils Percent Auto 0.4 % (0.2-1.2); Eosinophils Absolute Auto 0.1 K/mm3 (0-0.3); Eosinophils Percent Auto 1.6 % (0-4.4); Hematocrit 31.6 % (42.0-52.0); Hemoglobin 10.3 g/dL (14.0-18.0); Immature Granulocyte Absolute 0.05 K/mm3 (0.00-0.031); Immature Granulocyte Percent A 0.7 % (0-0.5); Lymphocytes Absolute Auto 0.84 K/mm3 (0.9-3.2); Lymphocytes Percent Auto 11.4 % (18.3-44.2); Mean Corpuscular HGB Conc 32.6 g/dl (32-36); Mean Corpuscular Hemoglobin 33.2 pg (26-34); Mean Corpuscular Volume 101.9 fl (80-100); Mean Platelet Volume 11.5 fl (7.4-10.4); Monocytes Absolute Auto 0.9 K/mm3 (0.1-0.6); Monocytes Percent Auto 12.3 % (2.6-8.5); Neutrophils Absolute Auto 5.4 K/mm3 (1.3-6.7); Neutrophils Percent Auto 73.6 % (45.5-73.1); Platelet Count Result 224 k/mm3 (150-375); Red Cell Distribution Width 15.1 % (11.5-14.5); White Blood Count 7.4 K/mm3 (4.5-10.0)
[2023-12-27 05:17] LABS: Alanine Aminotransferase 12 U/L (6-50); Albumin Level 3.1 g/dL (3.5-5.1); Alkaline Phosphatase 114 U/L (38-126); Anion Gap 7 mmol/L (4-12); Aspartate Amino Transferase 34 U/L (17-59); Bilirubin,Total 1.2 mg/dL (0.2-1.3); Blood Urea Nitrogen 97 mg/dL (9-20); Calcium 9.4 mg/dL (8.4-10.2); Carbon Dioxide 31 mmol/L (22-30); Chloride 99 mmol/L (98-107); Estimated CRCL calculation 30 ml/min; Estimated Glomerular Filt Rate 33; Glucose 114 mg/dL (65-110); Magnesium 2.9 mg/dL (1.6-2.3); Potassium 4.2 mmol/L (3.4-5.0); Sodium 137 mmol/L (137-145)
[2023-12-27 05:20] LABS: Vancomycin Random 14.2 ug/mL (10-20)
[2023-12-27] MEDS: MAGNESIUM OXIDE 400 MG TABLET PO ×3 (05:42→20:52)
[2023-12-27] MEDS: VANCOMYCIN 1,500 MG/NS 500 ML 1,500 MG/500 ML BAG 250 MG IVPB (07:10)
--- NOTE | 2023-12-27 08:30 | PHAR ---
The patient's home med of Verquvo 2.5mg has been verified.
[2023-12-27] MEDS: CEFEPIME 1 GM/NS 50 ML 1 GM/50 ML BAG IVPB (09:47)
[2023-12-27] MEDS: GABAPENTIN 400 MG CAPSULE 1600 MG PO ×2 (09:48→20:52)
[2023-12-27] MEDS: PANTOPRAZOLE 40 MG TABLET PO (09:48)
[2023-12-27] MEDS: COLCHICINE 0.6 MG TABLET PO (09:48)
[2023-12-27] MEDS: METOPROLOL SUCCINATE EXT REL 50 MG TABCR PO (09:48)
[2023-12-27] MEDS: THIAMINE HCL 100 MG TABLET PO (09:49)
[2023-12-27] MEDS: MULTIVITAMINS /C LUTEIN (CENTRUM SILVER) TABLET *BKC 1 TAB PO (09:49)
[2023-12-27] MEDS: FOLIC ACID 1 MG TABLET PO (09:49)
[2023-12-27] MEDS: APIXABAN 5 MG TABLET PO ×2 (09:49→20:53)
[2023-12-27] MEDS: allopurinoL 100 MG TABLET PO ×2 (09:49→20:52)
[2023-12-27] MEDS: SACUBITRIL/VALSARTAN 24-26 MG TABLET 1 TAB PO ×2 (09:50→20:53)
--- NOTE | 2023-12-27 12:30 | PM.IMPN ---
Progress Note: A&P Assessment and Plan (1) Sepsis: Code(s): A41.9 - Sepsis, unspecified organism Status: Acute (2) Acute respiratory failure with hypoxia: Code(s): J96.01 - Acute respiratory failure with hypoxia Status: Acute (3) Pneumonia: Qualifiers: Laterality: bilateral Lung location: unspecified part of lung Pneumonia type: due to unspecified organism Qualified Code(s): J18.9 - Pneumonia, unspecified organism Code(s): J18.9 - Pneumonia, unspecified organism Status: Acute (4) Congestive heart failure: Code(s): I50.9 - Heart failure, unspecified Status: Acute (5) Gangrene of left foot: Code(s): I96 - Gangrene, not elsewhere classified Status: Acute (6) ELSY (acute kidney injury): Code(s): N17.9 - Acute kidney failure, unspecified Status: Acute (7) Atrial fibrillation: Code(s): I48.91 - Unspecified atrial fibrillation Status: Chronic (8) GERD (gastroesophageal reflux disease): Code(s): K21.9 - Gastro-esophageal reflux disease without esophagitis Status: Chronic (9) Hyperlipidemia: Code(s): E78.5 - Hyperlipidemia, unspecified Status: Chronic Plan A 78-year-old male past medical history of atrial fibrillation congestive heart failure coronary artery disease GERD gout hyperlipidemia CABG x4 alcohol abuse former smoker to the hospital with altered mental status and low blood pressure. Past few days. Workup in the hospital showed head CT with will in the right cerebellum priscila right thalamus and right basal ganglia. Left foot x-ray shows soft tissue swelling of the foot with no evidence of osteomyelitis. Chest x-ray showed stable airspace opacities in the lower lung zones consistent with atelectasis versus pneumonia mild pulmonary edema small but stable pleural effusions and cardiomegaly. WBC normal at 7.4 hemoglobin at 10 point normal at 0.31. Sodium 136 chloride 94 creatinine of 3.5 EGFR 17 lactic acid was normal at 1.2. Liver enzymes were normal. ProBNP 14592. UA showed trace urine ketone 1+ urine bili trace leukocyte otherwise normal. Respiratory panel was obtained and was negative for influenza RSV and COVID. Patient received mycin. He also received IV push Lasix in the ED In the ED he was hypotensive. Oxygen saturation were adequate. Sepsis due to hypotension hypoxia tachypnea heart regular than 90. Received 1 L normal saline in the started on vancomycin and cefepime. Blood culture today. Will also get culture from swab from left foot wound. Acute hypoxic respiratory failure chest x-ray findings reviewed. Respiratory symptoms. Could be due to sepsis. Will stop azithromycin as he is unlikely to have pneumonia. Respiratory status stable. On room air Left foot cellulitis on IV antibiotics. Wound Culture to be obtained today Possible pneumonia however noted respiratory symptoms reported. Azithromycin stop. Continue vancomycin and cefepime as ordered for cellulitis Echo 09/15/2020 with mild to moderate reduced LV systolic function with ejection fraction of 40-45% right ventricular systolic function was normal biatrial enlargement echo has been reordered. Left foot gangrene and cellulitis General surgery consulted. Foot CT came back nondisplaced fracture of medial aspect of base of 2nd proximal phalanx with no evidence of osteomyelitis. Does have darrius purulent drainage from foot wound which will be culture today. ELSY creatinine of 3.5 baseline around 1.6-2.1 improved with IV resuscitation done in the ER. 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
--- NOTE | 2023-12-27 15:13 | PM.PNGS ---
Progress Note: A&P Assessment and Plan (1) Wound, open, foot: Code(s): S91.309A - Unspecified open wound, unspecified foot, initial encounter Status: Acute Assessment and Plan: long d/w pt and family, once medically stable they would prefer transfer to their vascular surgeon in [place] for likely amputation of L 2nd toe and possibly 1st, cont abx and local wound care for now, infection seems to be stable, improving with conservative measures, all imaging reviewed Subjective Subjective Date/Time Seen: 12/27/23 15:13 Interval history: no acute issues overnight Review of Systems Review of Systems: All systems reviewed & are unremarkable except as noted in HPI and below Exam Const: General: cooperative, comfortable, no acute distress and ill appearing Resp: Auscultation: diminished lung sounds Cardio: Rate: regular rate Rhythm: regular rhythm GI: Inspection: normal to inspection Extrem: Other: L foot - drsg C/D/I Objective Data Vital Signs Vital Signs: Vital Signs - 24 hr 12/26/23 16:00 12/26/23 16:35 12/26/23 18:00 Temperature 36.2 C L Pulse Rate 91 90 96 Respiratory Rate 20 Blood Pressure 118/57 L Pulse Oximetry 100 Oxygen Delivery 12/26/23 20:00 12/26/23 20:00 12/26/23 20:00 Temperature 36.5 C Pulse Rate 84 91 Respiratory Rate 18 Blood Pressure 114/54 L Pulse Oximetry 90 Oxygen Delivery Room Air 12/26/23 22:00 12/27/23 00:05 12/27/23 00:00 Temperature 36.6 C Pulse Rate 94 88 Respiratory Rate 18 Blood Pressure 93/48 L Pulse Oximetry 94 Oxygen Delivery Room Air 12/27/23 00:00 12/27/23 02:00 12/27/23 04:36 Temperature 36.5 C Pulse Rate 86 86 91 Respiratory Rate 18 Blood Pressure 109/69 Pulse Oximetry 96 Oxygen Delivery 12/27/23 04:00 12/27/23 04:00 12/27/23 06:00 Temperature Pulse Rate 90 93 Respiratory Rate Blood Pressure Pulse Oximetry Oxygen Delivery Room Air 12/27/23 07:54 12/27/23 09:48 12/27/23 11:48 Temperature 37.0 C 36.6 C Pulse Rate 96 93 96 Respiratory Rate 20 20 Blood Pressure 114/71 116/61 Pulse Oximetry 99 95 Oxygen Delivery 08/27/24 08:30 Temperature Pulse Rate 93 Respiratory Rate Blood Pressure Pulse Oximetry Oxygen Delivery Intake/Output Intake/Output: Intake & Output 12/24/23 12/25/23 12/26/23 12/27/23 23:59 23:59 23:59 23:59 Intake Total 800 840 140 Output Total 1100 400 Balance 800 -260 -260 Meds/Results Medications: Active Medications Generic Name Dose Route Start Last Admin Trade Name Milka PRN Reason Stop Dose Admin Acetaminophen 650 mg 12/25/23 06:22 Acetaminophen 325 Mg Tablet PO Q4H PRN Mild Pain (1-3) or Fever Hydrocodone Bitart/Acetaminophen 1 tab 12/25/23 18:45 12/26/23 20:25 Hydrocodone/Acetaminophen (*Crx) 7.5-325 Mg Tablet PO 1 tab Q6H PRN Administration PAIN RATED 7-10 Allopurinol 100 mg 12/25/23 21:00 12/27/23 09:49 Allopurinol 100 Mg Tablet PO 100 mg Q12H JEAN Administration Apixaban 5 mg 12/25/23 21:00 12/27/23 09:49 Apixaban 5 Mg Tablet PO 5 mg Q12H JEAN Administration Colchicine 0.6 mg 12/26/23 09:00 12/27/23 09:48 Colchicine 0.6 Mg Tablet PO 0.6 mg DAILY JEAN Administration Ferrous Fumarate 324 mg 12/26/23 09:00 12/27/23 09:49 Ferrous Fumarate 324 Mg (106 Mg Iron) Tablet PO 324 mg DAILY JEAN Administration Folic Acid 1 mg 12/26/23 09:00 12/27/23 09:49 Folic Acid 1 Mg Tablet PO 1 mg DAILY JEAN Administration Gabapentin 1,600 mg 12/25/23 21:00 12/27/23 09:48 Gabapentin 400 Mg Capsule PO 1,600 mg Q12H JEAN Administration Cefepime HCl 1 gm in 50 mls @ 100 mls/hr 12/26/23 12:00 12/27/23 09:47 Maxipime 1 Gm/Ns 50 Ml IVPB 100 mls/hr DAILY JEAN Administration Vancomycin HCl 1,500 mg in 500 mls @ 250 mls/hr 12/27/23 07:00 12/27/23 07:10 Vancomycin 1,500 Mg/Ns 500 Ml IVPB 250 mls/h
[2023-12-27] MEDS: PRAVASTATIN SODIUM 20 MG TABLET 40 MG PO (20:52)
[2023-12-28] VITALS (15 sets, daily range): BP systolic 107–130; BP diastolic 57–70; PULSE 79–98; RESP 20–22; TEMP 36.1–36.8; O2SAT 94–99
[2023-12-28 00:02] LABS: Glucose Point of Care 102 mg/dl (65-105)
[2023-12-28 00:18] LABS: Alveolar/Arterial O2 Gradient 75.1 mmHg; Base Excess ABG 3.8 mEq/l (+/-2.0); Carboxyhemoglobin 1.1 % THb (0-2.0); Fractional Inspired Oxygen 32 %; HCO3 ABG 27.9 mEq/l (22.0-26.0); Methemoglobin ABG 0.3 %THb (0-1.5); Oxygen Content ABG 14.2 %vol (16.0-22.0); Oxygen Saturation ABG 98.1 % (95.0-100.0); Oxyhemoglobin 96.6 % THb (90.0-100.0); PCO2 ABG 39.9 mmHg (35.0-45.0); PO2 ABG 106.4 mmHg (80.0-100.0); PO2 FiO2 Ratio Arterial Blood 3.33 %; Total Hemoglobin 10.3 g/dL (12.0-18.0); pH ABG 7.462 (7.350-7.450)
[2023-12-28 00:20] LABS: Modified Allen's Test Pass; Site Drawn RIGHT RADIAL
[2023-12-28 00:21] LABS: Device NASAL CANNULA
--- NOTE | 2023-12-28 02:28 | PC.NURSE ---
Pt found lethargic and somnolent, only responding to deep pain stimuli. Vital signs and blood glucose obtained and Dr. Sanchez notified of change in condition. Last known well at 2129. Code stroke called at 2324 and received orders for stat head CT and ABG. Dr. Sanchez at bedside to perform neuro exam. Pt taken to CT at 2335 and ABG drawn after returning to room. Dr Sanchez notified of results of head CT and ABG at 0030. No further order received from Dr. Sanchez. Will continue to monitor.
[2023-12-28 04:51] LABS: Basophils Percent Auto 0.4 % (0.2-1.2); Eosinophils Absolute Auto 0.2 K/mm3 (0-0.3); Hematocrit 30.8 % (42.0-52.0); Hemoglobin 9.9 g/dL (14.0-18.0); Immature Granulocyte Absolute 0.03 K/mm3 (0.00-0.031); Immature Granulocyte Percent A 0.4 % (0-0.5); Lymphocytes Absolute Auto 0.75 K/mm3 (0.9-3.2); Lymphocytes Percent Auto 11.2 % (18.3-44.2); Mean Corpuscular HGB Conc 32.1 g/dl (32-36); Mean Corpuscular Hemoglobin 33.2 pg (26-34); Mean Corpuscular Volume 103.4 fl (80-100); Mean Platelet Volume 12.1 fl (7.4-10.4); Monocytes Absolute Auto 0.8 K/mm3 (0.1-0.6); Monocytes Percent Auto 12.6 % (2.6-8.5); Neutrophils Absolute Auto 4.8 K/mm3 (1.3-6.7); Neutrophils Percent Auto 72.4 % (45.5-73.1); Platelet Count Result 215 k/mm3 (150-375); Red Blood Count 2.98 M/mm3 (4.6-6.20); White Blood Count 6.7 K/mm3 (4.5-10.0)
[2023-12-28 04:58] LABS: Alanine Aminotransferase 12 U/L (6-50); Alkaline Phosphatase 112 U/L (38-126); Anion Gap 8 mmol/L (4-12); Aspartate Amino Transferase 24 U/L (17-59); Blood Urea Nitrogen 91 mg/dL (9-20); Calcium 9.1 mg/dL (8.4-10.2); Carbon Dioxide 29 mmol/L (22-30); Chloride 102 mmol/L (98-107); Estimated CRCL calculation 35 ml/min; Estimated Glomerular Filt Rate 39; Glucose 102 mg/dL (65-110); Sodium 139 mmol/L (137-145)
[2023-12-28] MEDS: MAGNESIUM OXIDE 400 MG TABLET PO ×3 (05:16→21:09)
[2023-12-28] MEDS: FOLIC ACID 1 MG TABLET PO (10:00)
[2023-12-28] MEDS: GABAPENTIN 400 MG CAPSULE 1600 MG PO ×2 (10:00→21:06)
[2023-12-28] MEDS: APIXABAN 5 MG TABLET PO ×2 (10:00→21:06)
[2023-12-28] MEDS: SACUBITRIL/VALSARTAN 24-26 MG TABLET 1 TAB PO ×2 (10:00→21:08)
[2023-12-28] MEDS: METOPROLOL SUCCINATE EXT REL 50 MG TABCR PO (10:00)
[2023-12-28] MEDS: THIAMINE HCL 100 MG TABLET PO (10:01)
[2023-12-28] MEDS: CEFEPIME 1 GM/NS 50 ML 1 GM/50 ML BAG IVPB (10:01)
[2023-12-28] MEDS: MULTIVITAMINS /C LUTEIN (CENTRUM SILVER) TABLET *BKC 1 TAB PO (10:01)
[2023-12-28] MEDS: allopurinoL 100 MG TABLET PO ×2 (10:01→21:06)
[2023-12-28] MEDS: COLCHICINE 0.6 MG TABLET PO (10:01)
[2023-12-28] MEDS: PANTOPRAZOLE 40 MG TABLET PO (10:02)
--- NOTE | 2023-12-28 10:39 | WPDCDIQUERY2 ---
CDI Query Clarification Request Wound care was consulted on 12/25, and documented that patient has sacrum pressure ulcer stage III as well left heel pressure ulcer, deep tissue and left dorsal foot/feet ulcer, arterial. Based on your medical judgement, can you please indicate in the progress note whether or not you agree with these diagnoses. Thank you.
--- NOTE | 2023-12-28 16:35 | PM.IMPN ---
Progress Note: A&P Assessment and Plan (1) Sepsis: Code(s): A41.9 - Sepsis, unspecified organism Status: Acute (2) Acute respiratory failure with hypoxia: Code(s): J96.01 - Acute respiratory failure with hypoxia Status: Acute (3) Pneumonia: Qualifiers: Laterality: bilateral Lung location: unspecified part of lung Pneumonia type: due to unspecified organism Qualified Code(s): J18.9 - Pneumonia, unspecified organism Code(s): J18.9 - Pneumonia, unspecified organism Status: Acute (4) Congestive heart failure: Code(s): I50.9 - Heart failure, unspecified Status: Acute (5) Gangrene of left foot: Code(s): I96 - Gangrene, not elsewhere classified Status: Acute (6) ELSY (acute kidney injury): Code(s): N17.9 - Acute kidney failure, unspecified Status: Acute (7) Atrial fibrillation: Code(s): I48.91 - Unspecified atrial fibrillation Status: Chronic (8) GERD (gastroesophageal reflux disease): Code(s): K21.9 - Gastro-esophageal reflux disease without esophagitis Status: Chronic (9) Hyperlipidemia: Code(s): E78.5 - Hyperlipidemia, unspecified Status: Chronic Plan A 78-year-old male past medical history of atrial fibrillation congestive heart failure coronary artery disease GERD gout hyperlipidemia CABG x4 alcohol abuse former smoker to the hospital with altered mental status and low blood pressure. Past few days. Workup in the hospital showed head CT with will in the right cerebellum priscila right thalamus and right basal ganglia. Left foot x-ray shows soft tissue swelling of the foot with no evidence of osteomyelitis. Chest x-ray showed stable airspace opacities in the lower lung zones consistent with atelectasis versus pneumonia mild pulmonary edema small but stable pleural effusions and cardiomegaly. WBC normal at 7.4 hemoglobin at 10 point normal at 0.31. Sodium 136 chloride 94 creatinine of 3.5 EGFR 17 lactic acid was normal at 1.2. Liver enzymes were normal. ProBNP 29478. UA showed trace urine ketone 1+ urine bili trace leukocyte otherwise normal. Respiratory panel was obtained and was negative for influenza RSV and COVID. Patient received mycin. He also received IV push Lasix in the ED #Acute hypoxic respiratory failure -Respiratory status stable. On room air #Left foot cellulitis on IV antibiotics. -General surgery consulted. Foot CT came back nondisplaced fracture of medial aspect of base of 2nd proximal phalanx with no evidence of osteomyelitis. Does have darrius purulent drainage from foot wound -Wound culture shows Gram-positive cocci -currently on cefepime 1 g and Lineolid 600mg PO BID -possible transfer to facility with vascular surgeon # CAD,CHF,A.FIb Echo 09/15/2020 with mild to moderate reduced LV systolic function with ejection fraction of 40-45% right ventricular systolic function was normal biatrial enlargement echo has been reordered. Chronic Atrial fibrillation on metoprolol and Eliquis Congestive heart failure chronic systolic and diastolic not in acute exacerbation #ELSY creatinine of 3.5 baseline around 1.6-2.1 improved with IV resuscitation done in the ER. Continues to improve DVT prophylaxis on apixaban Subjective Date/time seen: 12/28/23 16:35 Interval history: Patient was examined at the bedside. Patient caregiver reports that patient has bad circulation and he is seen by Dr. Fuentes at [facility] who amputated the T-tube was on his left foot. Patient was also seen by Dr. Johansen for his CHF. The patient is medically stable will be transferred to the facility if surgery agrees with the plan. Review of Systems Review of Systems: All systems reviewed & are unremarkable except as noted in HPI and below ROS unobtainable: Yes unobtainable due to mental status Exam Narrative: General: In no acute distress, thin built Head: atraumatic, no encephalopathy E
[2023-12-28] MEDS: PRAVASTATIN SODIUM 20 MG TABLET 40 MG PO (21:07)
[2023-12-28] MEDS: LINEZOLID 600 MG TABLET PO (21:07)
[2023-12-29] VITALS (12 sets, daily range): BP systolic 104–118; BP diastolic 56–74; PULSE 74–100; RESP 18–24; TEMP 36.3–36.5; O2SAT 94–100
[2023-12-29 04:55] LABS: Basophils Absolute Auto 0.1 K/mm3 (0.0-0.1); Basophils Percent Auto 0.9 % (0.2-1.2); Eosinophils Absolute Auto 0.3 K/mm3 (0-0.3); Eosinophils Percent Auto 4.5 % (0-4.4); Hematocrit 28.5 % (42.0-52.0); Hemoglobin 9.1 g/dL (14.0-18.0); Immature Granulocyte Absolute 0.02 K/mm3 (0.00-0.031); Immature Granulocyte Percent A 0.4 % (0-0.5); Lymphocytes Absolute Auto 0.97 K/mm3 (0.9-3.2); Lymphocytes Percent Auto 17.5 % (18.3-44.2); Mean Corpuscular HGB Conc 31.9 g/dl (32-36); Mean Corpuscular Hemoglobin 32.5 pg (26-34); Mean Corpuscular Volume 101.8 fl (80-100); Mean Platelet Volume 12.1 fl (7.4-10.4); Monocytes Absolute Auto 0.8 K/mm3 (0.1-0.6); Monocytes Percent Auto 13.9 % (2.6-8.5); Neutrophils Absolute Auto 3.5 K/mm3 (1.3-6.7); Neutrophils Percent Auto 62.8 % (45.5-73.1); Platelet Count Result 216 k/mm3 (150-375); Red Cell Distribution Width 14.9 % (11.5-14.5); White Blood Count 5.6 K/mm3 (4.5-10.0)
[2023-12-29 05:08] LABS: Alanine Aminotransferase 14 U/L (6-50); Albumin Level 2.8 g/dL (3.5-5.1); Alkaline Phosphatase 121 U/L (38-126); Anion Gap 4 mmol/L (4-12); Aspartate Amino Transferase 29 U/L (17-59); Bilirubin,Total 0.9 mg/dL (0.2-1.3); Blood Urea Nitrogen 91 mg/dL (9-20); Calcium 9.2 mg/dL (8.4-10.2); Carbon Dioxide 30 mmol/L (22-30); Chloride 102 mmol/L (98-107); Estimated CRCL calculation 37 ml/min; Estimated Glomerular Filt Rate 42; Glucose 97 mg/dL (65-110); Potassium 4.8 mmol/L (3.4-5.0); Sodium 136 mmol/L (137-145)
[2023-12-29] MEDS: MAGNESIUM OXIDE 400 MG TABLET PO ×3 (06:14→20:31)
[2023-12-29] MEDS: COLCHICINE 0.6 MG TABLET PO (08:59)
[2023-12-29] MEDS: allopurinoL 100 MG TABLET PO ×2 (08:59→20:30)
[2023-12-29] MEDS: THIAMINE HCL 100 MG TABLET PO (08:59)
[2023-12-29] MEDS: APIXABAN 5 MG TABLET PO ×2 (08:59→20:30)
[2023-12-29] MEDS: METOPROLOL SUCCINATE EXT REL 50 MG TABCR PO (08:59)
[2023-12-29] MEDS: PANTOPRAZOLE 40 MG TABLET PO (08:59)
[2023-12-29] MEDS: GABAPENTIN 400 MG CAPSULE 1600 MG PO ×2 (08:59→20:29)
[2023-12-29] MEDS: FOLIC ACID 1 MG TABLET PO (08:59)
[2023-12-29] MEDS: CEFEPIME 1 GM/NS 50 ML 1 GM/50 ML BAG IVPB (08:59)
[2023-12-29] MEDS: MULTIVITAMINS /C LUTEIN (CENTRUM SILVER) TABLET *BKC 1 TAB PO (08:59)
[2023-12-29] MEDS: SACUBITRIL/VALSARTAN 24-26 MG TABLET 1 TAB PO ×2 (08:59→20:30)
[2023-12-29] MEDS: LINEZOLID 600 MG TABLET PO ×2 (08:59→20:30)
--- NOTE | 2023-12-29 12:22 | PCNFU ---
Nutrition Follow-Up Complete: Increased nutrient needs related to altered skin integrity as evidenced by stage III ulcer to sacrum, DTPI to heel Goal:PO intake greater than 50% of meals and supplements Pt slowly progressing towards goal, continue with same goal. Pt current nutrition is Regular, 1000ml fluid restriction - noted fluid restriction to be d/c'd today. Nutrition recommendation: Add Ensure compact BID for an additional 220kcals, 9g protein per shake, LAXMI BID for wound healing. Last recorded weight is 87.5 kg. Bowel Motility: +BM 12/28 Labs Reviewed: Hgb:9.8, HCT:301, Alb:3.2, GFR:25, BUN:93, Cr:2.5 Meds Noted: eliquis, zofran, protonix Skin: DTPI to heel, stage III to sacrum Additional Notes: Pt continues on a regular diet, intake 25-50% of meals. Fluid restriction removed today, will send Ensure compact BID, LAXMI BID for wound healing. Monitor intake, wt, labs, fluid restriction orders. Follow up in 5 days.
--- NOTE | 2023-12-29 14:33 | PM.IMPN ---
Progress Note: A&P Assessment and Plan (1) Sepsis: Code(s): A41.9 - Sepsis, unspecified organism Status: Acute (2) Acute respiratory failure with hypoxia: Code(s): J96.01 - Acute respiratory failure with hypoxia Status: Acute (3) Pneumonia: Qualifiers: Laterality: bilateral Lung location: unspecified part of lung Pneumonia type: due to unspecified organism Qualified Code(s): J18.9 - Pneumonia, unspecified organism Code(s): J18.9 - Pneumonia, unspecified organism Status: Acute (4) Congestive heart failure: Code(s): I50.9 - Heart failure, unspecified Status: Acute (5) Gangrene of left foot: Code(s): I96 - Gangrene, not elsewhere classified Status: Acute (6) ELSY (acute kidney injury): Code(s): N17.9 - Acute kidney failure, unspecified Status: Acute (7) Atrial fibrillation: Code(s): I48.91 - Unspecified atrial fibrillation Status: Chronic (8) GERD (gastroesophageal reflux disease): Code(s): K21.9 - Gastro-esophageal reflux disease without esophagitis Status: Chronic (9) Hyperlipidemia: Code(s): E78.5 - Hyperlipidemia, unspecified Status: Chronic Plan A 78-year-old male past medical history of atrial fibrillation congestive heart failure coronary artery disease GERD gout hyperlipidemia CABG x4 alcohol abuse former smoker to the hospital with altered mental status and low blood pressure. Past few days. Workup in the hospital showed head CT with will in the right cerebellum priscila right thalamus and right basal ganglia. Left foot x-ray shows soft tissue swelling of the foot with no evidence of osteomyelitis. Chest x-ray showed stable airspace opacities in the lower lung zones consistent with atelectasis versus pneumonia mild pulmonary edema small but stable pleural effusions and cardiomegaly. WBC normal at 7.4 hemoglobin at 10 point normal at 0.31. Sodium 136 chloride 94 creatinine of 3.5 EGFR 17 lactic acid was normal at 1.2. Liver enzymes were normal. ProBNP 79177. UA showed trace urine ketone 1+ urine bili trace leukocyte otherwise normal. Respiratory panel was obtained and was negative for influenza RSV and COVID. Patient received mycin. He also received IV push Lasix in the ED #Left foot cellulitis on IV antibiotics. -General surgery consulted. Foot CT came back nondisplaced fracture of medial aspect of base of 2nd proximal phalanx with no evidence of osteomyelitis. Does have darrius purulent drainage from foot wound -Wound culture shows Gram-positive cocci -Had a discussion with the family. His son wants him to be transferred, not to be discharged and then go to [facility]. -Today we called Dr. Mi but his customs and immigration officer reports he is not available today. Called [facility] transfer department -Started on amoxicillin-clavulanic acid and cont linezolid. # CAD,CHF,A.FIb Echo 09/15/2020 with mild to moderate reduced LV systolic function with ejection fraction of 40-45% right ventricular systolic function was normal biatrial enlargement echo has been reordered. Chronic Atrial fibrillation on metoprolol and Eliquis Congestive heart failure chronic systolic and diastolic not in acute exacerbation #ELSY creatinine of 3.5 baseline around 1.6-2.1 improved with IV resuscitation done in the ER. Continues to improve DVT prophylaxis on apixaban Subjective Date/time seen: 12/29/23 14:33 Interval history: Patient is examined at the bedside. Had a discussion with the family. His son wants him to be transferred, not to be discharged and then go to [facility]. Today we called Dr. Mi but his customs and immigration officer reports he is not available today. Recall the [facility] transfer department and awaiting transfer. Patient is currently stable and he has been changed to oral antibiotics a amoxicillin-clavulanic acid,
[2023-12-29] MEDS: AMOXICILLIN/CLAVULANATE K 875-125 MG TAB 1 TABLET PO (20:30)
[2023-12-29] MEDS: PRAVASTATIN SODIUM 20 MG TABLET 40 MG PO (20:30)
--- NOTE | 2023-12-29 22:52 | PC.NURSE ---
This patient, Onur Ramos, was transferred to [[id number] ] on 12/29/23 at 2252. Personal belongings sent with patient. Report given to [ Fifi nichole]. Appropriate documentation sent with patient.
[2023-12-30 05:00] VITALS: BP 114/59; PULSE 86; RESP 20; TEMP 36.1; O2SAT 100
[2023-12-30] MEDS: MAGNESIUM OXIDE 400 MG TABLET PO (05:25)
[2023-12-30 05:49] LABS: Basophils Absolute Auto 0.1 K/mm3 (0.0-0.1); Basophils Percent Auto 0.9 % (0.2-1.2); Eosinophils Absolute Auto 0.3 K/mm3 (0-0.3); Eosinophils Percent Auto 4.9 % (0-4.4); Hematocrit 31.1 % (42.0-52.0); Hemoglobin 9.9 g/dL (14.0-18.0); Immature Granulocyte Absolute 0.04 K/mm3 (0.00-0.031); Immature Granulocyte Percent A 0.7 % (0-0.5); Lymphocytes Absolute Auto 0.87 K/mm3 (0.9-3.2); Lymphocytes Percent Auto 15.7 % (18.3-44.2); Mean Corpuscular HGB Conc 31.8 g/dl (32-36); Mean Corpuscular Volume 103.7 fl (80-100); Monocytes Absolute Auto 0.6 K/mm3 (0.1-0.6); Monocytes Percent Auto 11.4 % (2.6-8.5); Neutrophils Absolute Auto 3.7 K/mm3 (1.3-6.7); Neutrophils Percent Auto 66.4 % (45.5-73.1); Platelet Count Result 205 k/mm3 (150-375); Red Cell Distribution Width 15.1 % (11.5-14.5); White Blood Count 5.6 K/mm3 (4.5-10.0)
[2023-12-30 06:03] LABS: Alanine Aminotransferase 17 U/L (6-50); Albumin Level 2.9 g/dL (3.5-5.1); Alkaline Phosphatase 126 U/L (38-126); Anion Gap 7 mmol/L (4-12); Aspartate Amino Transferase 31 U/L (17-59); Blood Urea Nitrogen 83 mg/dL (9-20); Carbon Dioxide 28 mmol/L (22-30); Chloride 99 mmol/L (98-107); Estimated CRCL calculation 43 ml/min; Estimated Glomerular Filt Rate 49; Glucose 105 mg/dL (65-110); Potassium 4.2 mmol/L (3.4-5.0); Sodium 134 mmol/L (137-145)
[2023-12-30] MEDS: AMOXICILLIN/CLAVULANATE K 875-125 MG TAB 1 TABLET PO (08:23)
[2023-12-30] MEDS: PANTOPRAZOLE 40 MG TABLET PO (08:23)
[2023-12-30] MEDS: GABAPENTIN 400 MG CAPSULE 1600 MG PO (08:23)
[2023-12-30] MEDS: APIXABAN 5 MG TABLET PO (08:23)
[2023-12-30] MEDS: SACUBITRIL/VALSARTAN 24-26 MG TABLET 1 TAB PO (08:23)
[2023-12-30 08:24] VITALS: PULSE 86
[2023-12-30] MEDS: METOPROLOL SUCCINATE EXT REL 50 MG TABCR PO (08:24)
[2023-12-30] MEDS: LINEZOLID 600 MG TABLET PO (08:24)
[2023-12-30] MEDS: allopurinoL 100 MG TABLET PO (08:24)
[2023-12-30] MEDS: MULTIVITAMINS /C LUTEIN (CENTRUM SILVER) TABLET *BKC 1 TAB PO (08:24)
[2023-12-30] MEDS: THIAMINE HCL 100 MG TABLET PO (08:24)
[2023-12-30] MEDS: FOLIC ACID 1 MG TABLET PO (08:24)
[2023-12-30] MEDS: COLCHICINE 0.6 MG TABLET PO (08:49)
--- NOTE | 2023-12-30 11:35 | PCPTNOTE ---
Attempted to see [facility] for PT, however patient refused due to L foot pain and patient reported he did not feel good. RN aware.
[2023-12-30] MEDS: HYDROcodone/acetaminophen (*CRX) 7.5-325 MG TABLET 1 TAB PO (11:37)
[2023-12-30 14:00] VITALS: BP 129/53; PULSE 90; RESP 24; TEMP 36.4; O2SAT 96
--- NOTE | 2023-12-30 14:34 | PM.TDS ---
Transfer Discharge Sum: Prov Provider Date of admission: 12/25/23 06:22 Primary care physician: Gary Rice MD Admitting clinician: Mirela Sanchez MD Consults: 12/25/23 Wound/ET Consult Routine Reason for Consult:: left foot blister and gangrenous left 5th metatarsal 12/26/23 11:52 Consult to Physician Routine Comment: spoke with Denae in the office @1155(ER,US) Consulting Provider: Ashley Huff scallop binder/MD group to consult: general surgery Reason for consultation: gangrene, foot ulcer, cellulitis Has provider been notified: Yes 12/27/23 Consult to Dietitian Routine Reason for Consult:: poor appetite DS: Admitting Diagnosis Discharge Date 12/30/2023 Admitting Diagnosis Gangrene of 2nd toe left foot DS: Discharge Diagnosis Discharge Diagnosis (1) Sepsis: Code(s): A41.9 - Sepsis, unspecified organism Status: Acute (2) Acute respiratory failure with hypoxia: Code(s): J96.01 - Acute respiratory failure with hypoxia Status: Acute (3) Pneumonia: Qualifiers: Laterality: bilateral Lung location: unspecified part of lung Pneumonia type: due to unspecified organism Qualified Code(s): J18.9 - Pneumonia, unspecified organism Code(s): J18.9 - Pneumonia, unspecified organism Status: Acute (4) Congestive heart failure: Code(s): I50.9 - Heart failure, unspecified Status: Acute (5) Gangrene of left foot: Code(s): I96 - Gangrene, not elsewhere classified Status: Acute (6) ELSY (acute kidney injury): Code(s): N17.9 - Acute kidney failure, unspecified Status: Acute (7) Atrial fibrillation: Code(s): I48.91 - Unspecified atrial fibrillation Status: Chronic (8) GERD (gastroesophageal reflux disease): Code(s): K21.9 - Gastro-esophageal reflux disease without esophagitis Status: Chronic (9) Hyperlipidemia: Code(s): E78.5 - Hyperlipidemia, unspecified Status: Chronic Plan A 78-year-old male past medical history of atrial fibrillation congestive heart failure coronary artery disease GERD gout hyperlipidemia CABG x4 alcohol abuse former smoker to the hospital with altered mental status and low blood pressure. Past few days. Workup in the hospital showed head CT with will in the right cerebellum priscila right thalamus and right basal ganglia. Left foot x-ray shows soft tissue swelling of the foot with no evidence of osteomyelitis. Chest x-ray showed stable airspace opacities in the lower lung zones consistent with atelectasis versus pneumonia mild pulmonary edema small but stable pleural effusions and cardiomegaly. WBC normal at 7.4 hemoglobin at 10 point normal at 0.31. Sodium 136 chloride 94 creatinine of 3.5 EGFR 17 lactic acid was normal at 1.2. Liver enzymes were normal. ProBNP 52799. UA showed trace urine ketone 1+ urine bili trace leukocyte otherwise normal. Respiratory panel was obtained and was negative for influenza RSV and COVID. Patient received mycin. He also received IV push Lasix in the ED #Left foot cellulitis on IV antibiotics. -spoke with the Dr. Fuentes his vascular surgeon who agrees with the transfer. -spoke with Dr. Delvalle at [facility] the hospitalist who agrees for the transfer. -General surgery consulted. Foot CT came back nondisplaced fracture of medial aspect of base of 2nd proximal phalanx with no evidence of osteomyelitis. Does have darrius purulent drainage from foot wound -Wound culture shows Gram-positive cocci -Had a discussion with the family. His son wants him to be transferred, not to be discharged and then go to [facility]. -Today we called Dr. Mi but his welfare officer reports he is not available today. Called [facility] transfer department -Started on amoxicillin-clavulanic acid and cont linezolid. # CAD,CHF,A.FIb Echo 09/15/2020 with mild to moderate reduced LV systoli
--- NOTE | 2023-12-30 14:39 | PM.IMPN ---
Progress Note: A&P Assessment and Plan (1) Sepsis: Code(s): A41.9 - Sepsis, unspecified organism Status: Acute (2) Acute respiratory failure with hypoxia: Code(s): J96.01 - Acute respiratory failure with hypoxia Status: Acute (3) Pneumonia: Qualifiers: Laterality: bilateral Lung location: unspecified part of lung Pneumonia type: due to unspecified organism Qualified Code(s): J18.9 - Pneumonia, unspecified organism Code(s): J18.9 - Pneumonia, unspecified organism Status: Acute (4) Congestive heart failure: Code(s): I50.9 - Heart failure, unspecified Status: Acute (5) Gangrene of left foot: Code(s): I96 - Gangrene, not elsewhere classified Status: Acute (6) ELSY (acute kidney injury): Code(s): N17.9 - Acute kidney failure, unspecified Status: Acute (7) Atrial fibrillation: Code(s): I48.91 - Unspecified atrial fibrillation Status: Chronic (8) GERD (gastroesophageal reflux disease): Code(s): K21.9 - Gastro-esophageal reflux disease without esophagitis Status: Chronic (9) Hyperlipidemia: Code(s): E78.5 - Hyperlipidemia, unspecified Status: Chronic Plan A 78-year-old male past medical history of atrial fibrillation congestive heart failure coronary artery disease GERD gout hyperlipidemia CABG x4 alcohol abuse former smoker to the hospital with altered mental status and low blood pressure. Past few days. Workup in the hospital showed head CT with will in the right cerebellum priscila right thalamus and right basal ganglia. Left foot x-ray shows soft tissue swelling of the foot with no evidence of osteomyelitis. Chest x-ray showed stable airspace opacities in the lower lung zones consistent with atelectasis versus pneumonia mild pulmonary edema small but stable pleural effusions and cardiomegaly. WBC normal at 7.4 hemoglobin at 10 point normal at 0.31. Sodium 136 chloride 94 creatinine of 3.5 EGFR 17 lactic acid was normal at 1.2. Liver enzymes were normal. ProBNP 54035. UA showed trace urine ketone 1+ urine bili trace leukocyte otherwise normal. Respiratory panel was obtained and was negative for influenza RSV and COVID. Patient received mycin. He also received IV push Lasix in the ED #Left foot cellulitis on IV antibiotics. -spoke with the Dr. Fuentes his vascular surgeon who agrees with the transfer. -spoke with Dr. Delvalle at [facility] the hospitalist who agrees for the transfer. -General surgery consulted. Foot CT came back nondisplaced fracture of medial aspect of base of 2nd proximal phalanx with no evidence of osteomyelitis. Does have darrius purulent drainage from foot wound -Wound culture shows Gram-positive cocci -Had a discussion with the family. His son wants him to be transferred, not to be discharged and then go to [facility]. -Today we called Dr. Mi but his third officer reports he is not available today. Called [facility] transfer department -Started on amoxicillin-clavulanic acid and cont linezolid. # CAD,CHF,A.FIb Echo 09/15/2020 with mild to moderate reduced LV systolic function with ejection fraction of 40-45% right ventricular systolic function was normal biatrial enlargement echo has been reordered. Chronic Atrial fibrillation on metoprolol and Eliquis Congestive heart failure chronic systolic and diastolic not in acute exacerbation #ELSY creatinine of 3.5 baseline around 1.6-2.1 improved with IV resuscitation done in the ER. Continues to improve DVT prophylaxis on apixaban Subjective Date/time seen: 12/30/23 14:39 Interval history: Spoke with a Dr. Fuentes his vascular surgeon who agrees for the transfer to [facility]. There is being physician is Dr. Mook Correa the hospitalist who agrees with the transfer. Patient will undergo possible 2nd toe amputation and/or 1st toe.
[2023-12-31 17:04] LABS: Pneumococcal Antigen Urine NOT DETECTED
== END 2023-12-30 15:16 | disposition short-term general hospital (02) | DRG 871 ==
LOC: ANHED 03:32 → ANHIMU 10:29 → ANH3MED 12-29 22:50
PROVIDERS: Nurse Practitioner Acute Care; Admitting Provider Internal Medicine; Emergency Provider Student in an Organized Health Care Education/Training Program; PCP Internal Medicine; Visit Provider General Practice
DX: A41.9 Sepsis, unspecified organism (principal); J96.01 Acute respiratory failure with hypoxia; N17.9 Acute kidney failure, unspecified; I48.20 Chronic atrial fibrillation, unspecified; I50.42 Chronic combined systolic (congestive) and diastolic (congestive) heart failure; L03.116 Cellulitis of left lower limb; B95.61 Methicillin susceptible Staphylococcus aureus infection as the cause of diseases classified elsewhere; K21.9 Gastro-esophageal reflux disease without esophagitis; E78.5 Hyperlipidemia, unspecified; I25.10 Atherosclerotic heart disease of native coronary artery without angina pectoris; S92.912A Unspecified fracture of left toe(s), initial encounter for closed fracture; X58.XXXA Exposure to other specified factors, initial encounter; D53.9 Nutritional anemia, unspecified; N18.9 Chronic kidney disease, unspecified; Z20.822 Contact with and (suspected) exposure to COVID-19; Z86.73 Personal history of transient ischemic attack (TIA), and cerebral infarction without residual deficits; Z95.1 Presence of aortocoronary bypass graft; Z87.891 Personal history of nicotine dependence; Z89.422 Acquired absence of other left toe(s)
CPT/HCPCS: 36415; 36600; 70450; 71045; 73620; 73700; 80053; 80202; 81001; 82274; 82375; 82805; 82948; 83050; 83605; 83735; 83880; 84145; 85025; 85380; 85610; 85652; 85730; 86140; 86738; 87040; 87070; 87077; 87081; 87181; 87205; 87637; 87641; 87899; 93005; 96365; 96367; 96375; 97110; 97161; 97166; 97530; 97535; 99285; A9270; J0692; J1940; J3370; J7040